=== PATIENT | female | born 1985 | race Caucasian/White ===

== ENCOUNTER 2021-12-01 13:12 | Outpatient (CLI) | payer MEDICAID, SELFPAY ==
--- NOTE | 2021-12-01 13:00 | CRLHL7_ITS ---
For Patients: As a result of the 21st Century Cures Act, medical imaging exams and procedure reports are released immediately into your electronic medical record. You may view this report before your referring provider. If you have questions, please contact your health care provider. BILATERAL BREAST MRI WITHOUT AND WITH GADOLINIUM, 12/01/2021 CLINICAL HISTORY: 36-year-old woman with newly diagnosed LEFT breast cancer. She presented with a palpable mass in the LEFT breast. Ultrasound-guided biopsy showed invasive ductal carcinoma with areas of central necrosis, grade III, with associated DCIS. INDICATION FOR BREAST MRI: Staging of newly diagnosed breast cancer and screening of contralateral breast. Regional lymph nodes will also be assessed. COMPARISON STUDIES: Mammogram 11/11/2021 and ultrasound 11/11/2021. CONTRAST: 15 cc Dotarem. TECHNIQUE: The patient was positioned prone using a breast coil. Multiple imaging sequences were obtained using 1-1.5 mm thick slices with no gap. The image sequences include T2-weighted STIR in the axial plane, T1-weighted nonfat-saturated gradient echo in the axial plane, pre- and post-contrast T1-weighted FLASH 3D with fat suppression in the axial plane, and T1-weighted FLASH high-resolution 3D with fat suppression in the sagittal plane. Image post-processing was performed on a XGraph workstation. Complex 3D rendering including maximum intensity projections (MIPS) and volumetric renderings were obtained to optimize visualization of the extent of pathology and relationship to the nipple, skin, and chest wall. This aids in determining feasibility of breast conservation surgery. Subtraction, multiplanar reconstruction, mean curve determination, and angiogenesis mapping were also performed. The study was technically adequate. FINDINGS: Amount of Fibroglandular Tissue: Heterogeneous fibroglandular tissue. Breast Background Enhancement: Moderate (50-75%). RIGHT Breast: No suspicious enhancement for malignancy. LEFT Breast: Irregular mass enhancement posterolateral LEFT breast approximately 2 o???clock measures 3.6 x 2.4 x 3.1 cm. Biopsy clip within this mass correlating with the biopsy-proven malignancy. No definite abnormal enhancement elsewhere LEFT breast. Lymph Nodes: Two adjacent LEFT axillary lymph nodes with thickened cortices, the largest measuring 1.3 x 1.5 x 1.2 cm. RIGHT axillary lymph nodes have a normal appearance. IMPRESSIONS AND RECOMMENDATIONS: 1. Irregular mass enhancement posterolateral LEFT breast approximately 2 o???clock measuring 3.6 cm in greatest dimension. This corresponds to the biopsy-proven malignancy. 2. No evidence for malignancy RIGHT breast. 3. Indeterminate LEFT axillary lymph nodes. Ultrasound with possible biopsy could be performed as needed for treatment planning. BI-RADS: BI-RADS Category 6: Known Biopsy-Proven Malignancy Emelina Peguero M.D. Body/Breast Radiologist [email or web address] SV/pjt PT/Dictated by: Emelina Peguero MD @ 12/07/2021 8:35:00 AM (Electronically Signed)
== END 2021-12-01 13:13 | disposition home or self-care (01) ==
LOC: MRI 13:14
PROVIDERS: PCP Internal Medicine; Visit Provider Surgery
DX: C50.912 Malignant neoplasm of unspecified site of left female breast (principal); R59.9 Enlarged lymph nodes, unspecified
CPT/HCPCS: 77049; A9575

== ENCOUNTER 2021-12-09 09:02 | Outpatient (CLI) | payer MEDICAID, SELFPAY ==
--- NOTE | 2021-12-09 09:15 | CRLHL7_ITS ---
For Patients: As a result of the Century Cures Act, medical imaging exams and procedure reports are released immediately into your electronic medical record. You may view this report before your referring provider. If you have questions, please contact your health care provider. ULTRASOUND-GUIDED LEFT AXILLARY LYMPH NODE BIOPSY CLINICAL HISTORY: Triple negative left breast cancer with abnormal lymph node on recent MRI. COMPARISON STUDIES: Breast MRI 12/01/2021 TECHNIQUE: Real-time ultrasound with image documentation was used for targeting the left axillary lesion. Core biopsy specimens were obtained using an automated gun with a 18-gauge biopsy needle. CONSENT and TIME OUT: The procedure, risks, and alternatives were explained to the patient and a consent was signed. [place] Protocol was followed including pre-procedure verification that relevant information/documentation was available, reviewed and properly matched to the patient; consent accurate and complete; and equipment and supplies available. Time Out was conducted just prior to starting procedure to verify the four required elements: patient identity, correct side/site marked (if applicable), procedure, relevant images/results properly labeled and displayed (if applicable). PROCEDURE: The patient was positioned supine on the ultrasound table. The breast was prepped with ChloraPrep. 6 cc 1 percent lidocaine used for local anesthesia. Core samples were obtained. A sterile metal biopsy clip was placed percutaneously to lizzy the lesion position within the breast. The specimens were placed in 10% formalin and sent to the pathology department. Pressure was held on the biopsy site until all bleeding subsided. The skin incision was closed with Steri-Strips. An ice pack was positioned over the biopsy site. Post-biopsy instructions were reviewed with the patient, and a written copy was given to her. LATERALITY: Left axilla LESION: Mildly prominent left axillary lymph node measuring 2.1 cm with hypoechoic cortex measuring 2.8 millimeters. SUSPICION FOR MALIGNANCY: High NUMBER OF SAMPLES: 5 BIOPSY CLIP SHAPE: Oval PROXIMITY OF CLIP TO TARGET: Within IMPRESSION: Ultrasound-guided left axillary biopsy. When the pathology report is available, an addendum to this report will be made. ACR not applicable Dictated by Hardy Coyne MD @ 12/09/2021 10:12:17 AM (Electronically Signed)
== END 2021-12-09 09:03 | disposition home or self-care (01) ==
LOC: US 09:04
PROVIDERS: Visit Provider Internal Medicine Medical Oncology
DX: C50.912 Malignant neoplasm of unspecified site of left female breast (principal); R59.9 Enlarged lymph nodes, unspecified
CPT/HCPCS: 38505; 76942; 88305; A4648; A4649

== ENCOUNTER 2021-12-16 10:04 | Outpatient (CLI) | payer MEDICAID, SELFPAY ==
[2021-12-16 18:43] LABS: Free T4 Free Thyroxine* 1.49 ng/dL (0.70-1.85)
[2021-12-18 20:46] LABS: Total T3 215 ng/dL (80-200)
== END 2021-12-16 10:05 | disposition home or self-care (01) ==
LOC: NFLDREF 10:07
PROVIDERS: PCP Family Medicine; Visit Provider Clinical Nurse Specialist
DX: C50.912 Malignant neoplasm of unspecified site of left female breast (principal)
CPT/HCPCS: 84439; 84480; 84481

== ENCOUNTER 2021-12-17 09:09 | Day surgery (SDC) | payer MEDICAID, SELFPAY ==
[2021-12-16] MEDS: CEFAZOLIN 2 GM INJ IVP (11:15)
[2021-12-17 09:23] VITALS: BMI 25.9
[2021-12-17] MEDS: LACTATED RINGERS 1000 ML 1,000 ML 100 ML IV (09:30)
[2021-12-17 09:32] VITALS: BP 101/69; PULSE 74; RESP 16; TEMP 36.4; O2SAT 97
[2021-12-17] MEDS: SODIUM CHLORIDE 0.9 % (FLUSH) 10 ML SYRINGE IVF (09:34)
--- NOTE | 2021-12-17 10:37 | CRLHL7_ITS ---
For Patients: As a result of the Century Cures Act, medical imaging exams and procedure reports are released immediately into your electronic medical record. You may view this report before your referring provider. If you have questions, please contact your health care provider. Indication: PORTACATH PLACEMENT Technique: Fluoroscopic image right chest. Fluoroscopic time 51.3 seconds. IMPRESSION: Fluoroscopic guidance for Port-A-Cath placement. Dictated by Hardy Coyne MD @ 12/17/2021 12:31:14 PM (Electronically Signed)
[2021-12-17] MEDS: LIDOCAINE 1% 20 ML VIAL INJECTION (11:25)
[2021-12-17] MEDS: BUPIVACAINE 0.5% 30 ML INJECTION (11:25)
[2021-12-17] MEDS: HEPARIN 500 UNIT/5 ML SYRINGE IVF (11:43)
[2021-12-17 12:06] VITALS: BP 111/72; PULSE 70; RESP 16; TEMP 36; O2SAT 93
--- NOTE | 2021-12-17 12:08 | W.ANESCHARGE ---
Anesthesia Charges Start Date/Time Anesthesia Start Date: 12/17/21 Anesthesia Start Time: 11:07 Stop Date/Time Anesthesia Stop Date: 12/17/21 Anesthesia Stop Time: 12:10
[2021-12-17 12:15] VITALS: BP 112/100; PULSE 74; RESP 16; O2SAT 100
[2021-12-17 12:30] VITALS: BP 112/84; PULSE 63; RESP 16; O2SAT 99
--- NOTE | 2021-12-17 12:35 | W.ANESCHARGE ---
Anesthesia Charges Start Date/Time Anesthesia Start Date: 12/17/21 Anesthesia Start Time: 11:07 Stop Date/Time Anesthesia Stop Date: 12/17/21 Anesthesia Stop Time: 12:10
--- NOTE | 2021-12-17 16:03 | PM.GSPRC ---
Operative Note Date of procedure: 12/17/21 Type of Procedure: Right internal jugular port a catheter Procedure Description: After discussing the risks and benefits of the procedure, the patient signed informed consent.? The operative site was marked and the patient was brought to the operating room and placed on the operating table in supine position.? Care was taken to pad the patient's pressure points.?? The patient was then sedated by anesthesia.?? The operative site was then prepped and draped in the usual sterile fashion.? A time-out was then performed. The patient's right internal jugular vein was visualized using ultrasound. Local anesthetic was injected into the neck skin above the vein. A skin timoteo was made with an 11 blade. The vein was accessed percutaneously via Seldinger technique using ultrasound guidance. Next local anesthetic was injected into the skin below the clavicle and along the proposed tract to the neck incision. A skin incision was then made with a 15 blade and a pocket created in the chest wall with cautery. A tunneler was then used to thread the catheter from the chest wall pocket to the neck incision. Once this was done fluoroscopy was brought into the field. Over the wire the tract was dilated using fluoroscopy. The wire and the dilator were then removed leaving the sheath intact in the vein. Through this the catheter was threaded. Using fluoroscopy the catheter was positioned into the distal SVC. The catheter was noted to flush and aspirate easily. The catheter was then connected to the port. The port was placed in the pocket and secured in place with two 2 0 Prolene stay sutures. It was noted to flush and aspirate easily. This was then locked with heparinized saline and left accessed. The skin was closed with absorbable suture. Sterile dressings were applied. Instrument sponge and needle counts were correct at the end of the case. The patient was woken and taken to the PACU in stable condition. ? Sterile dressings were then applied. ? The patient was then woken and transported to the recovery area in stable condition. ? The patient tolerated the procedure well. Findings: Compressible right internal jugular vein with placement of port a catheter. Anesthesia: MAC Surgeon: Indira Doherty MD Estimated blood loss (mL): 5 Condition: stable Disposition: same day
== END 2021-12-17 12:55 | disposition home or self-care (01) ==
PROVIDERS: Surgery; PCP Family Medicine; Visit Provider Surgery
DX: Z45.2 Encounter for adjustment and management of vascular access device (principal); C50.912 Malignant neoplasm of unspecified site of left female breast
CPT/HCPCS: 36561; 00532; 71045; 76000; C1788; J0690; J1642; J2250; J2405; J2704; J3010; J3490; J7120

== ENCOUNTER 2021-12-25 09:00 | Outpatient (RCR) | payer MEDICAID, SELFPAY ==
--- NOTE | 2021-12-08 13:11 | URNOTE ---
Received request for prior auth for Carboplatin(J9045), Paclitaxel (J9267), Pembrolizumab (J9271) and Aloxi (J2469). Per [facility] fee schedule, prior auth is not required for Carboplatin, Paclitaxel and Aloxi. Prior auth is required for Pembrolizumab. This has been submitted and is pending.
--- NOTE | 2021-12-09 13:26 | URNOTE ---
Request for Pembrolizumab 200 units every 3 weeks has been approved for total 800 units for 4 cycles from 12/17/2021 through 05/29/2022. Authorization #[id number]
[2021-12-15 10:58] LABS: Basophils Percent Auto 0.1 % (0.0-3.0); Eosinophils Percent Auto 1.6 % (0.0-7.0); Hematocrit 46.2 % (33.0-51.0); Hemoglobin* 15.2 gm/dL (12.0-16.0); Immature Granulocytes Abs Auto 0.01 K/uL (0.00-0.30); Lymphocytes Percent Auto 23.9 % (20-44); Mean Corpuscular HGB Conc 33 gm/dL (32-36); Mean Corpuscular Hemoglobin 29 pg (26-34); Mean Corpuscular Volume 88 fL (80-100); Monocytes Percent Auto 6.5 % (0.0-11.0); Neutrophils Percent Auto 67.8 % (42.0-72.0); Platelet Count* 310 K/uL (140-440); RDW Coefficient of Variation % 13.7 % (11.5-15.5); Red Blood Count 5.24 m/uL (4.00-5.20); White Blood Count* 11.18 K/uL (4.50-11.00)
[2021-12-15 11:06] LABS: Slide Review Reflex No
[2021-12-15 11:07] LABS: Neutrophils Absolute Auto 7.58 K/uL (1.7-7.0)
[2021-12-15 11:13] LABS: Albumin* 4.8 g/dL (3.3-5.0); Chloride* 104 mmol/L (96-114); Sodium* 139 mmol/L (135-149)
[2021-12-15 11:14] LABS: Potassium* 3.5 mmol/L (3.6-5.1)
[2021-12-15 11:16] LABS: Alanine Aminotransferase* 21 U/L (4-35); Alkaline Phosphatase* 63 U/L (40-150); Aspartate Amino Transferase* 27 U/L (12-35); Bilirubin Total* 0.9 mg/dL (0.1-1.5); Blood Urea Nitrogen* 9 mg/dL (5-24); Carbon Dioxide* 24 mmol/L (20-32); Creatinine* 0.7 mg/dL (0.5-1.5); Estimated Glomerular Filt Rate 113 ml/min; Glucose* 109 mg/dL (60-115); Total Protein* 7.7 g/dL (6.0-8.3)
[2021-12-15 11:17] LABS: Calcium* 9.2 mg/dL (8.4-10.6)
--- NOTE | 2021-12-15 14:58 | PC.NURSE ---
Met with patient for chemotherapy teaching. Contents of the chemotherapy binder reviewed. Side effects of Paclitaxel, Carboplatin and Pembrolizumab reviewed. Patient instructed on what to report to provider and how to contact the provider. Patient has already obtained the supplies needed for cryotherapy to hands and feet. Patient verbalizes understanding of treatment plan.
[2021-12-18 09:05] VITALS: BP 103/68; PULSE 65; RESP 16; TEMP 36.4; O2SAT 98
[2021-12-18] MEDS: PEMBROLIZUMAB 200 MG, TUBING PRIMARY 1 EACH, In-line 0.2 micron filter set 1 EACH in 0.... 216 MG IVPB (09:52)
[2021-12-18] MEDS: PALONOSETRON 0.25 MG/5 ML inj IV (10:29)
[2021-12-18] MEDS: dexAMETHasone 20 MG in 0.9 % SODIUM CHLORIDE 100 ml 100 ML 408 MG IVPB (10:47)
[2021-12-18] MEDS: FAMOTIDINE 20 MG, diphenhydrAMINE 50 MG in 0.9 % SODIUM CHLORIDE 100 ml 100 ML 309 MG IVPB (11:03)
[2021-12-18] MEDS: SODIUM CHLORIDE 0.9 % (FLUSH) 10 ML SYRINGE IVF (11:34)
[2021-12-18] MEDS: 0.9 % SODIUM CHLORIDE 250 ml IV (11:34)
--- NOTE | 2021-12-18 15:42 | ONC.NURNOTE ---
First Chemo Patient here today for first Keytruda/Taxol/Carbo; tolerated well. Pt's legs were very jumpy after IV Benadryl premed; she has a hx of restless leg syndrome. Massage, positioning with pillow and movement improved restlessness. Pt reports poor circulation in her feet, noting they are always cold. Tolerated cryotherapy before/during/after Taxol with cold packs on bottoms of feet and leaving top cold packs out; pt tolerated cold pack mitts. Pt feels cold easily; used chair heater and 2 warm blankets to keep her comfortable during cryotherapy; was effective. Questions answered, Lorazepam refilled.
[2021-12-25 09:10] VITALS: BP 108/76; PULSE 91; RESP 16; TEMP 36.1; O2SAT 96
[2021-12-25 09:25] LABS: Basophils Absolute Auto 0.02 K/uL (0.00-0.30); Basophils Percent Auto 0.3 % (0.0-3.0); Eosinophils Absolute Auto 0.17 K/uL (0.00-0.50); Eosinophils Percent Auto 2.8 % (0.0-7.0); Hematocrit 39.5 % (33.0-51.0); Hemoglobin* 13.2 gm/dL (12.0-16.0); Immature Granulocytes Abs Auto 0.01 K/uL (0.00-0.30); Lymphocytes Absolute Auto 1.81 K/uL (0.90-2.90); Lymphocytes Percent Auto 29.6 % (20-44); Mean Corpuscular HGB Conc 33 gm/dL (32-36); Mean Corpuscular Hemoglobin 29 pg (26-34); Mean Corpuscular Volume 88 fL (80-100); Monocytes Percent Auto 5.9 % (0.0-11.0); Neutrophils Absolute Auto 3.75 K/uL (1.7-7.0); Neutrophils Percent Auto 61.2 % (42.0-72.0); Platelet Count* 254 K/uL (140-440); RDW Coefficient of Variation % 12.9 % (11.5-15.5); Red Blood Count 4.49 m/uL (4.00-5.20); White Blood Count* 6.12 K/uL (4.50-11.00)
[2021-12-25 09:31] LABS: Slide Review Reflex No
[2021-12-25 09:49] LABS: Albumin* 4.3 g/dL (3.3-5.0); Chloride* 102 mmol/L (96-114)
[2021-12-25 09:50] LABS: Potassium* 3.9 mmol/L (3.6-5.1); Sodium* 135 mmol/L (135-149)
[2021-12-25 09:52] LABS: Aspartate Amino Transferase* 62 U/L (12-35); Bilirubin Total* 1.3 mg/dL (0.1-1.5); Carbon Dioxide* 25 mmol/L (20-32); Creatinine* 0.7 mg/dL (0.5-1.5); Estimated Glomerular Filt Rate 113 ml/min; Total Protein* 7.5 g/dL (6.0-8.3)
[2021-12-25 09:53] LABS: Alanine Aminotransferase* 66 U/L (4-35); Alkaline Phosphatase* 69 U/L (40-150); Blood Urea Nitrogen* 16 mg/dL (5-24); Calcium* 9.3 mg/dL (8.4-10.6); Glucose* 102 mg/dL (60-115)
[2021-12-25] MEDS: dexAMETHasone 20 MG in 0.9 % SODIUM CHLORIDE 100 ml 100 ML 408 MG IVPB (10:43)
[2021-12-25] MEDS: PALONOSETRON 0.25 MG/5 ML inj IV (11:17)
[2021-12-25] MEDS: FAMOTIDINE 20 MG, diphenhydrAMINE 50 MG in 0.9 % SODIUM CHLORIDE 100 ml 100 ML 309 MG IVPB (11:18)
[2021-12-25] MEDS: HEPARIN 500 UNIT/5 ML SYRINGE IVF (14:14)
[2021-12-25] MEDS: SODIUM CHLORIDE 0.9 % (FLUSH) 10 ML SYRINGE IVF (14:14)
== END 2021-12-27 23:59 | disposition home or self-care (01) ==
LOC: CCIC 09:00
PROVIDERS: Clinical Nurse Specialist; PCP Internal Medicine; Visit Provider Internal Medicine Medical Oncology
DX: Z51.11 Encounter for antineoplastic chemotherapy (principal); C50.912 Malignant neoplasm of unspecified site of left female breast
CPT/HCPCS: 36415; 36591; 80053; 84443; 84480; 85025; 96376; 96413; 96415; 96417; 99202; 99205; 99211; J1100; J1200; J1642; J2469; J7050; J9045; J9267; J9271; S0028

== ENCOUNTER 2022-03-01 15:02 | Outpatient (CLI) | payer MEDICAID, SELFPAY ==
--- OUTSIDE RECORDS SUMMARY | 2022-03-01 15:04 | XMS_ITS | Clinical Summary ---
:1985 Author Organization [facility] [place] [address] Care Team Providers Name Role Phone Hardy Vital MD Primary Care Provider [phone] Allergies No known active allergies Medications Medication Sig Dispensed Refills Start Date End Date Status PARoxetine (PAXIL) 20 mg 30 mg. 3 09/09/2017 Active tablet cetirizine (ZYRTEC) 10 mg Take 1 tablet 0 11/03/2017 Active tablet by mouth once daily. ondansetron (ZOFRAN) 4 mg Take 1 tablet 12 tablet 0 11/03/2017 Active tabletIndications: Viral by mouth every gastroenteritis 8 hours if needed for Nausea/Vomiting . Active Problems Not on file Encounters Date Type Specialty Care Team Description 01/26/2022 Telephone Arcelia Barajas MS, Results (Negative 36 gene [facility]GC panel) 01/15/2022 Orders Only Lab, [facility] 01/15/2022 Travel 01/11/2022 Telemedicine Arcelia Barajas MS, Teleheal (Virtual visit CGC /); Counseling (Cancer genetic intake counselor ing /) 01/05/2022 Telephone Betty Barba Cancer Geneti cs 12/09/2021 Lab Requisition Unknown, Doctor 12/07/2021 Transcribe Orders Karo Benson MD from Last 3 Months Immunizations Name Administration Dates Next Due Hepatitis B (Peds) 09/13/2001, 04/19/2001, 03/15/2001 Td (Age >=7 Years) 05/29/1996 Social History Tobacco Use Types Packs/Day Years Used Date Former Smoker Smokeless Tobacco: Never Used Alcohol Use Standard Drinks/Week Comments No 0 (1 standard drink = 0.6 oz pure alcoho l) Alcoholic Drinks/day: 0 Sex Assigned at Date Recorded Not on file Obstetrics History Last Filed Vital Signs Vital Sign Reading Time Taken Comments Blood Pressure 133/83 11/03/2017 3:06 PM CDT Pulse 77 11/03/2017 3:06 PM CDT Temperature 36.8 ??C (98.2 ??F) 11/03/2017 3:06 PM CDT Respiratory Rate - - Oxygen Saturation 97% 11/03/2017 3:06 PM CDT Inhaled Oxygen Concentration - - Weight 75.9 kg (167 lb 6.4 oz) 11/03/2017 3:06 PM CDT Height 160.8 cm (5' 3.31) 11/03/2017 3:06 PM CDT Body Mass Index 29.37 11/03/2017 3:06 PM CDT Plan of Treatment Upcoming Encounters Date Type Specialty Care Team Description 06/14/2022 Orders Only Tori [facility] Health Maintenance Due Date Last Done Comments COVID-19 vaccine series (#1) 02/22/1984 Tdap 08/21/1994 Hepatitis C screening for age 18-79 08/21/2001 Tetanus booster 05/29/2006 05/29/1996 BMI (ht and wt on same day) for age 18+ 11/03/2018 11/04/19 18 Depression screening for age 12+ 11/03/2018 11/03/2017 Pap test for age 21-65 02/10/2020 02/09/2017, 02/09/2017 Influenza for age 9-49 01/28/2022 Procedures Procedure Name Priority Date/Time Associated Diagnosis Comme nts CANCER GENETIC SEND STAT 01/15/2022 Family history of Res ults for this OUT breast cancer procedure are in Triple negative the results malignant neoplasm section. of breast (HC) LAB TRACKING EVENT Routine 12/09/2021 9:30 AM CDT PATH BREAST CORE Routine 12/09/2021 9:30 AM Resul ts for this BIOPSY CDT procedure are i n the results section. from Last 3 Months Results CANCER GENETIC SEND OUT (01/15/2022) Specimen (Source) Anatomical Location Collection Method / Collectio n Time Received Time / Laterality Volume Blood BLOOD SPECIMEN / 01/15/2022 Unknown Narrative This result has an attachment that is no t available. aKro Benson MD SEND OUTS LAB TRACKING EVENT (12/09/2021 9:30 AM CDT) Specimen Anatomical Collection Method Collection Time Receive d Time (Source) Location / / Volume Laterality Other (Other) Client Collect / 12/09/2021 9:30 AM 11/27 4:16 Unknown CDT PM CDT Doctor Unknown LAB BILL ONLY Performing Organization Address City/State/ZIP Code Phon e Number [facility] [address] [place] [address] LABORATORY-CENTRAL 2000 LABORATORY PATH BREAST CORE BIOPSY (12/09/2021 9:30 AM CDT) Component Value Ref Test Analysis Performed At [facility] gist Range Method Time Signature Case Report Pathology Report ?Case: [id number] ? 12/10/2021 [facility] Authorizing Provider: ??Unkn own, Doctor ?Collected: ? 12/09/2021 0930 ? 2:55 PM HEAL TH Ordering Location: ? [facility] ?Received: ?12/09/2021 1741 ? CDT AIDAN DAVIS Pathologist: ? Kassidy Victor MD ? ENTRAL Specimen: ?Left Breast C ore Ultrasound Biopsy ? LABORATORY Final A) LEFT AXILLA, LYMPH NODE, ULTRASOUND-GUIDED CORE BIOPSY: 12/10/2021 [facility] Electronically Diagnosis 1. Fragments of benign lymph node 2:55 [facility] signed by 2. Negative for metastatic carcinoma in this sampling CDT LABORATORY-C ONEYDA Andrews MD for LABORATORY Kassidy Victor MD on 12/10/2021 at 2:55 PM Comment A) This is an image-guided b reast biopsy. The pathologic findings should be correlated with radiologic and clinical findings prior to treatment decisions. 12/10/2021 [facility] 2:55 PM HEALTH Case seen in consultation with Dr. Andrews. CDT LABORATORY-C ENTRAL LABORATORY Clinical 1.5 cm oval 12/10/2021 [facility] Information circumscribed 2:55 PM HEALTH solid hypoechoic CDT LABORATORY-C mass of the left ENTRAL axilla lymph LABORATORY node. Recent diagnosis of left breast IDC gr III, ER/NM/Her2 negative ([id number]) Gross A) Label: ??Patient's name and left axilla lymph node 12/10/2021 [facility] Description Description: 7 Fibrofatty core biopsies 2:55 PM HEALTH Size: 0.2-0.9 cm in length by 0.1 cm in diameter CDT LABORATORY-C Ink color: Black ENTRAL The specimen is submitted in toto in one cassette. LABORATORY Cold ischemic time: Less miki n 60 minutes, meets current ASCO/CAP guidelines. The specimen was fixed in formalin for a minimum of 6 hours and not longer than 72 hours. 12/09/2021 Microscopic The final diagnosis is based on microscopic examination of appropriate sections of all specimens. 12/10/2021 [facility] Description 2:55 PM HEALTH CDT LABORATORY-C A) The presence of black ink is confirmed on tissue sections. Additional deeper level sections are examined. ENTRAL LABORATORY Additional 12/10/2021 [facility] Information Interpreted at [facility], Central Laboratory - [address], [place] [address] 2:55 PM HEALTH CDT LABORATORY-C ENTRAL LABORATORY Specimen (Source) Anatomical Collection Method Collection Time Re ceived Time Location / / Volume Laterality Other (Left Breast 12/09/2021 9:30 2021 5:41 Core Ultrasound AM CDT PM CDT Biopsy) Doctor Unknown PATHOLOGY/CYTOLOGY Performing Organization Address City/State/ZIP Code Phon e Number [facility] [address] 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
== END 2022-03-01 15:03 | disposition home or self-care (01) ==
PROVIDERS: PCP Family Medicine; Visit Provider Internal Medicine Medical Oncology
DX: C50.912 Malignant neoplasm of unspecified site of left female breast (principal); Z51.81 Encounter for therapeutic drug level monitoring; Z79.899 Other long term (current) drug therapy
CPT/HCPCS: 93306

== ENCOUNTER 2022-05-11 13:17 | Emergency (ER) | payer MEDICAID, SELFPAY ==
[2022-05-11 14:01] VITALS: BP 109/75; PULSE 115; TEMP 36; O2SAT 100; BMI 22.3
--- NOTE | 2022-05-11 14:17 | CRLHL7_ITS ---
For Patients: As a result of the Century Cures Act, medical imaging exams and procedure reports are released immediately into your electronic medical record. You may view this report before your referring provider. If you have questions, please contact your health care provider. INDICATION: Cough. TECHNIQUE: Chest 2 views. COMPARISON: Fluoroscopic chest radiograph 12/17/2021. FINDINGS: Right IJ Port-A-Cath with tip in the mid SVC. No focal consolidation, pleural effusion, or pneumothorax. Normal heart size and pulmonary vascularity. Small metallic markers in the left chest wall. The bones are unremarkable. IMPRESSION: No acute cardiopulmonary findings. Dictated by Micaela Arredondo MD @ 05/11/2022 3:45:16 PM (Electronically Signed)
[2022-05-11] MEDS: IPRAT-ALBUT 0.5-2.5 MG/3 ML NEB 1 NEB IH (14:43)
--- OUTSIDE RECORDS SUMMARY | 2022-05-11 14:51 | XMS_ITS | Clinical Summary ---
:1985 Author Organization [email or web address] [place] [address] Care Team Providers Name Role Phone Hardy Vital MD Primary Care Provider [phone] Allergies No known active allergies Medications [...] Encounters Date Type Specialty Care Team Description 03/01/2022 Orders Only 2 scans: (2-Ord ) ECHO COMPLETE WO CONTRAST ([id number]) from Last 3 Months Immunizations Name Administration Dates Next Due Hepatitis B (Peds) 09/13/2001, 04/19/2001, 03/15/2001 Td (Age >=7 Years) 05/29/1996 Social History Tobacco Use Types Packs/Day Years Used Date Smoking Tobacco: Former Smokeless Tobacco: Never Alcohol Use Standard Drinks/Week Comments No 0 [...] COVID-19 vaccine series (#1) 02/22/1984 Tdap 08/21/1994 HIV for age 15-65 08/21/1998 Hepatitis C screening for age 18-79 08/21/2001 Tetanus booster 05/29/2006 05/29/1996 BMI (ht and wt on same day) for age 18+ 11/03/2018 11/04/19 18 Depression screening for age 12+ 11/03/2018 11/03/2017 Pap test for age 21-65 02/10/2020 02/09/2017, 02/09/2017 Influenza for age 9-49 01/28/2022 Procedures Procedure Name Priority Date/Time Associated Diagnosis Comme nts ECHO COMPLETE WO Routine 03/01/2022 3:32 PM Malignant neoplasm Results for this CONTRAST CDT of left breast (HC) procedur e are in the results section. from Last 3 Months Results ECHO COMPLETE WO CONTRAST (03/01/2022 3:32 PM CDT) P athologist Signature AORTIC VALVE 4 mmHg MEAN PG EJECTION 60 % FRACTION LVEDD 3.3 cm EJECTION 55 - 60% FRACTION Anatomical Region Laterality Modality HEART Ultrasound Specimen (Source) Anatomical Collection Method Collection Time Re ceived Time Location / / Volume Laterality 03/01/2022 3:05 PM CDT Narrative 03/01/2022 3:42 PM CDT ECHOCARDIOGRAM VALENTINA MIR ? Accessi on#: ?? [id number] : ?1985 36 years Study Date: ?? 03/01/2022 3:05:50 PM Gender: F ?BP: ? 119/78 mmHg Height: 163.00 cm ?BSA: ?1.68 m? ?? Weight: 63.00 kg ? Tech: ? MJW ? Referring MD: KARL LE Site: ? [facility] Reading Location: Mobile[facility] Procedure: 2D, Color Doppler and Spectra l Doppler. Indication for study: Cardiotoxic Chemot herapy Cardiac Rhythm: Regular.Study quality: G ood. Final Impressions: 1. Normal left ventricular size, normal wall thickness, normal function, calculated EF of 60 %. 2. Right ventricular cavity size is nor mal, global systolic RV function is normal. 3. No significant valve disease detecte d. 4. Current global longitudinal strain i s normal at -17 %. Comparison There are no prior studies on this patie nt for comparison purposes. Chamber Sizes and Function Normal left ventricular size, normal wal l thickness, normal global systolic function, calculated EF of 60 %. Left atrial size is normal. Left atrial pressure is normal. Right ventricular cavity size is normal, global systolic RV function is n ormal. RV wall thickness is normal. The right atrium is normal. Right atrial volume index is 12 ml/m? ??. Right atrial area is 10 cm? ??. The pulmonary artery is of normal size and origin. The sinus of Valsalva is normal sized. The ascending aorta is normal sized. Global longitudinal strain analysis was performed using [employer] software. Current global longitudinal strain is normal at -17 %. Valves, RV Pressures and Diastolic Funct ion The aortic valve is normal in structure and trileaflet, no stenosis and no regurgitation. The mitral valve is normal in structure, no mitral regurgitation. Normal diastolic function. The tricuspid valve is normal in structure. Tricuspid regur gitation is regurgitation is not evident. The pulmonic valve is normal. No pulmonary regurgitation. Pulmonary veins show a normal flow pattern. Masses, Effusion, Shunts There is no pericardial effusion. The in ferior vena cava is normal sized, respiratory size variation greater than 50%. No left to right shunting was detected by limited color flow Doppler interrogation of the interatrial septum. No masses or clots seen. MEASUREMENTS AND CALCULATIONS 2-D Measurements and LV Function: LVID (d) 3.3 cm Planimetered EF 60 % LVID (s) 2.0 cm LV FS% (2D) ? 39 % IVS (d) ??0.8 cm LVOT diameter ?? 2.0 cm LVPW (d) 0.8 cm HR ?9 7 bpm Ao Sinus 2.8 cm LA Vol index ?13 ml/ m2 Asc Ao ?? 2.7 cm RA Vol index ?12 ml /m2 LA ? 2.8 cm RA area ? 1 0 cm?RV Max 4C (d) ?? 2.7 cm ?GLS current ? -17% ?GLS System ?QLab. Diastology: Mitral ?Tissue Doppler ?Pulmonary veins E Peak 0.7 m/s ??e', Septum ? 0.09 m /s Pulm s ?78.3 cm/s A Peak 0.7 m/s ??e', Lateral ?0.13 m /s Pulm d ?61.7 cm/s E/A ?1.0 ?E/e' Average ?? 6.2 8 ? Pulm s/d ratio ??1.27 DT ? 206 msec IVRT ?? 78 msec Aortic Valve: Vmax ? 1.2 m/s ??ALISSA (V) ?? 2.12 cm? ?? VTI ?0.19 m ?? ALISSA (I ) ?? 2.48 cm? ?? LVOT V max ? 0.8 m/s ??Max PG ?6 mmHg LVOT VTI ? 0.15 m ?? Mean PG ? ? 4 mmHg SV ? 47 ml ?Dim I ndex 0.78 SV index ? 28 ml/m? ?? CO ?4.6 l/min AV Ejection Time 0.23 sec CI ? 2.7 l/min/m? ?? AV Flow Rate ? 204 ml/s Mitral Valve: MVA ?3.7 cm? ?? MV P 1/2 60 msec Tricuspid Valve and estimated PA pressur es: TAPSE 1.8 cm . This study was interpreted by an [facility]. CC: [facility]. ??Final ?? Procedure Note Darrian Carrillo MD - 03/01/2022Fo rmatting of this note might be different from the original. ECHOCARDIOGRAM VALENTINA MIR : 1985 36 years Study Date: 03/01 3:05:50 PM Gender: F BP: 119/78 mmHg Height: 163.00 cm BSA: 1.68 m? ?? Weight: 63.00 kg Tech: MALGORZATA Referring MD: KARL LE Site: [facility] Reading Location: Mobile[facility] Procedure: 2D, Color Doppler and Spectra l Doppler. Indication for study: Cardiotoxic Chemot herapy Cardiac Rhythm: Regular.Study quality: G ood. Final Impressions: 1. Normal left ventricular size, normal wall thickness, normal function, calculated EF of 60 %. 2. Right ventricular cavity size is nor mal, global systolic RV function is normal. 3. No significant valve disease detecte d. 4. Current global longitudinal strain i s normal at -17 %. Comparison There are no prior studies on this patie nt for comparison purposes. Chamber Sizes and Function Normal left ventricular size, normal wal l thickness, normal global systolic function, calculated EF of 60 %. Left atrial size is normal. Left atrial pressure is normal. Right ventricular cavity size is normal, global systolic RV function is normal. RV wall thickness is normal. The right atrium is normal. Right atrial volume index is 12 ml/m? ??. Right atrial area is 10 cm? ??. The pulmonary artery is of normal size and origin. The sinus of Valsalva is normal sized. The a scending aorta is normal sized. Global longitudinal strain analysis was performed using QLab software. Current global longitudinal strain is normal at -17 %. Valves, RV Pressures and Diastolic Funct ion The aortic valve is normal in structure and trileaflet, no stenosis and no regurgitation. The mitral valve is normal in structure, no mitral regurgitation. Normal diastolic function. The tricuspid valve is normal in structure. Tricuspid regurgitation is re gurgitation is not evident. The pulmonic valve is normal. No pulmonary regurgitation. Pulmonary veins show a normal flow pattern. Masses, Effusion, Shunts There is no pericardial effusion. The in ferior vena cava is normal sized, respiratory size variation greater than 50%. No left to right shunting was detected by limited color flow Doppler interrogation of the interatrial septum. No masses or clots seen. MEASUREMENTS AND CALCULATIONS 2-D Measurements and LV Function: LVID (d) 3.3 cm Planimetered EF 60 % LVID (s) 2.0 cm LV FS% (2D) 39 % IVS (d) 0.8 cm LVOT diameter 2.0 cm LVPW (d) 0.8 cm HR 97 bpm Ao Sinus 2.8 cm LA Vol index 13 ml/m2 Asc Ao 2.7 cm RA Vol index 12 ml/m2 LA 2.8 cm RA area 10 cm? ?? RV Max 4C (d) 2.7 cm GLS current -17% GLS System QLab. Diastology: Mitral Tissue Doppler Pulmonary veins E Peak 0.7 m/s e', Septum 0.09 m/s Pulm s 78.3 cm/s A Peak 0.7 m/s e', Lateral 0.13 m/s Pulm d 61.7 cm/s E/A 1.0 E/e' Average 6.28 Pulm s/d ratio 1.27 DT 206 msec IVRT 78 msec Aortic Valve: Vmax 1.2 m/s ALISSA (V) 2.12 cm? ?? VTI 0.19 m ALISSA (I) 2.48 cm? ?? LVOT V max 0.8 m/s Max PG 6 mmHg LVOT VTI 0.15 m Mean PG 4 mmHg SV 47 ml Dim Index 0.78 SV index 28 ml/m? ?? CO 4.6 l/min AV Ejection Time 0.23 sec CI 2.7 l/min/m ? ?? AV Flow Rate 204 ml/s Mitral Valve: MVA 3.7 cm? ?? MV P 1/2 60 msec Tricuspid Valve and estimated PA pressur es: TAPSE 1.8 cm . This study was interpreted by an [facility] facility. CC: [facility]. Final Karl Le MD ECHO ORD from Last 3 Months Insurance Payer Benefit Plan / Subscriber ID Effective Dates Phone Addre ss Type Group [place] [id number] 2021-Present [address] [address] [place] [address] Care Teams Fuse Assembler Relationship Specialty Start Date End Date Hardy Vital MD PCP - General Family Practice 01/06/221999 [place] [address] "
[2022-05-11 14:57] LABS: Basophils Percent Auto 0.3 % (0.0-3.0); Eosinophils Percent Auto 1.5 % (0.0-7.0); Hematocrit 30.3 % (33.0-51.0); Immature Granulocytes Pct Auto 1.5 %; Lymphocytes Percent Auto 20.2 % (20-44); Mean Corpuscular HGB Conc 33 gm/dL (32-36); Mean Corpuscular Hemoglobin 33 pg (26-34); Mean Corpuscular Volume 99 fL (80-100); Monocytes Percent Auto 13.9 % (0.0-11.0); Neutrophils Percent Auto 62.6 % (42.0-72.0); Platelet Count* 76 K/uL (140-440); RDW Coefficient of Variation % 11.8 % (11.5-15.5); Red Blood Count 3.06 m/uL (4.00-5.20); White Blood Count* 3.37 K/uL (4.50-11.00)
[2022-05-11 15:06] VITALS: PULSE 96; O2SAT 100
--- NOTE | 2022-05-11 15:11 | ED.SOB ---
HPI - SOB/Dyspnea General Date Seen: 05/11/22 Chief Complaint: Cough Stated Complaint: Lingering cough, on chemo Time Seen by Provider: 05/11/22 13:44 Source: patient Mode of arrival: ambulatory Limitations: no limitations History of Present Illness HPI Narrative: Patient is a 36-year-old female presents here with a cough she has had now for 3-4 weeks. She has a history of being treated for breast cancer, undergoing chemo, is going to undergo surgery here in the near future on her breast. She denies any fevers chills or sweats associated with this, her immunizations are up-to-date, she denies any hemoptysis any loss of consciousness, chest pain shortness of breath, or recent travel. Actually talks about times when she has absolutely no coughing, then the coughing will start usually when she changes rooms or changes venues with temperature change. 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 MD elicited complaint: cough Onset (ago): week(s) Timing: intermittent Severity: moderate Exacerbating factors: nothing Relieving factors: nothing Associated symptoms: denies other symptoms Treatment prior to arrival: none Related Data Home oxygen amount: none Home Medications Medication Instructions Recorded Confirmed acetaminophen 325 mg capsule 325 mg PO Q6H PRN 11/26/21 04/29/22 cetirizine 10 mg tablet 10 mg PO DAILY 11/26/21 04/29/22 ibuprofen 200 mg tablet 200 mg PO .Q6h Prn 11/26/21 04/29/22 calcium carbonate 500 mg calcium 500 mg PO Q4-6H PRN 12/18/21 04/29/22 (1,250 mg) chewable tablet lidocaine-prilocaine 2.5 %-2.5 % topical PRN port access 01/22/22 04/29/22 topical cream sennosides 8.6 mg capsule (senna) 8.6 mg PO DAILY 03/12/22 04/29/22 Previous Rx's Medication Instructions Recorded olanzapine 5 mg tablet 5 mg PO .qhs nausea #30 tabs 01/22/22 dexamethasone 4 mg tablet 4 mg PO BID #24 tabs 03/04/22 lorazepam 0.5 mg tablet 0.5 mg PO Q4H PRN nausea #25 tabs 03/05/22 prochlorperazine maleate 10 mg 10 mg PO QID PRN nausea #30 tabs 03/05/22 tablet clindamycin phosphate 1 % topical 1 applic topical BID #30 grams 03/22/22 gel ondansetron 8 mg disintegrating 8 mg PO Q8H PRN nausea #30 tabs 03/26/22 tablet albuterol sulfate 90 mcg/actuation 2 puff inhalation Q6H PRN 05/11/22 aerosol inhaler shortness of breath or wheezing #6.7 grams prednisone 50 mg tablet 50 mg PO DAILY #5 tabs 05/11/22 Allergies Allergy/AdvReac Type Severity Reaction Status Date / Time adhesive Allergy Verified 05/03/22 09:19 Review of Systems Status of ROS: Reports: 10 or more systems reviewed and unremarkable except as noted in History and below [facility] Medical History Breast cancer, left Dysmenorrhea Generalized anxiety disorder History of abnormal cervical Papanicolaou smear History of self mutilation History of spontaneous History of vaginal delivery (2012) Irregular menstrual cycle LFT elevation Major depressive disorder Migraine with aura Nicotine dependence Stress incontinence of urine Weight loss, abnormal Surgical History History of dilation and curettage History of elective History of tubal ligation (2012) Family History Maternal Grandmother Breast cancer Substance abuse Paternal Grandfather Lung cancer Substance abuse Father Mental disorder Mother Mental disorder Family/Other Mental disorder Social History Narrative: tobacco use 2-4 cig/day. Occasional alcohol use. 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 She has 2 children ages 8 and 15. Smoking Status: Former smoker How often do you have a drink containing alcohol: monthly or less AUDIT-C Alcohol total score: 1 Non-prescribed substance use: denies use Caffeine: Yes Little interest or pleasure in doing things: several days Feeling down, depressed, or hopeless: not at all Exam Narrative: Exam Narrative: I find a very nice lady in room 4 no apparent distress speaking to me in full sentences, Patient is peaking normally, problem with slurring words, oriented x3. Head eyes ears nose and throat exam show equal pupils, no scleral icterus, extraocular muscles are normal, no facial droop, speech is normal, trachea normal and midline. Thyroid normal midline palpable not enlarged. Chest shows symmetrical rise bilaterally, abnormal auscultation with occasional wheezes in all lung gar, no increased work of breathing, no overt bruising or lesions seen, no tenderness is noted on auscultation. Heart sounds normal with no S3-S4 no murmurs clicks or gallops. Abdomen shows no obvious masses or hepatosplenomegaly, no organomegaly, bowel sounds are normal in all quadrants. No tenderness is noted also in all quadrants. Upper and lower extremities show normal power, normal range of motion, pulses are normal, sensations normal, fine motor movements are normal, pelvis is stable to rocking. Cervical spine shows normal range of motion, and palpably not tender. Thoracic spine shows normal range of motion, and palpably not tender, lumbar spine shows no tenderness to palpation percussion and is otherwise normal range of motion. Skin shows no rashes, petechiae or eccymosis. Negative Homans sign Const: Vital Signs, click to edit/add: Vital Signs - 24 hr 05/11/22 14:01 05/11/22 15:06 05/11/22 15:37 Temperature 96.8 F L Pulse Rate [Pulse Oximeter] 115 H 96 109 H Blood Pressure [Ri ght Upper Arm] 109/75 Pulse Oximetry 100 100 97 Oxygen Delivery Me thod Room Air Room Air Room Air Documenting provider has reviewed patient's vital signs: yes Course Course Hospital Course: I discussed with the patient, that her chest x-ray showed no acute findings, her D-dimer was mildly elevated at 0.74, which is out of the normal range, I would recommend that we do a chest CT, but she declined this intervention, knowing that full well that we could miss a pulmonary embolism without doing this, I agree that she does not have other stigmata, but given the fact she is high risk with her history of malignancy, I do recommend she do this. She understands the risks, of not doing this, and fully would like the treatment for the cough. She does have influenza a, but is out of the treatment paradigm as she is now greater than 7 days from the start. Prednisone, along with albuterol is prescribed, I went over the risks benefits and side effects of this with her Vital Signs Vital signs: Initial Vital Signs Temperature 96.8 F L 05/11/22 14:01 Temperature Source Temporal Artery Scan 05/11/22 14:01 Pulse Rate 115 H 05/11/22 14:01 Blood Pressure 109/75 05/11/22 14:01 Blood Pressure Mean 86 05/11/22 14:01 Blood Pressure Position Sitting 05/11/22 14:01 Pulse Oximetry 100 05/11/22 14:01 Oxygen Delivery Method 05/11/22 14:01 Vital Signs Temperature 96.8 F L 05/11/22 14:01 Pulse Rate 115 H 05/11/22 14:01 Blood Pressure 109/75 05/11/22 14:01 Pulse Oximetry 100 05/11/22 14:01 Oxygen Delivery Method 05/11/22 14:01 Temperature 96.8 F L 05/11/22 14:01 Pulse Rate 109 H 05/11/22 15:37 Blood Pressure 109/75 05/11/22 14:01 Pulse Oximetry 97 05/11/22 15:37 Oxygen Delivery Method 05/11/22 15:37 MDM - SOB/Dyspnea MDM Narrative Medical decision making narrative: Differential diagnosis include a viral upper respiratory illness, histoplasmosis, tuberculosis, pneumonia, COPD exacerbation, emphysema, strep throat illness, bronchitis, asthma, reactive airway disease, chronic cough, medication side effects, allergic rhinitis with postnasal drip, foreign body aspiration, aspiration pneumonia, bronchiolitis, and gastroesophageal reflux disease as well as multiple other considerations. Lab Data Labs: Lab Results 05/11/22 05/11/22 05/11/22 Range/Units 14:17 14:25 14:25 WBC 3.37 L (4.50-11.00) K/uL RBC 3.06 L (4.00-5.20) m/uL Hgb 10.0 L (12.0-16.0) gm/dL Hct 30.3 L (33.0-51.0) % MCV 99 (80-100) fL MCH 33 (26-34) pg MCHC 33 (32-36) gm/dL RDW Coeff of Claire 11.8 (11.5-15.5) % Plt Count 76 L (140-440) K/uL Neut % (Auto) 62.6 (42.0-72.0) % Lymph % (Auto) 20.2 (20-44) % Coal % (Auto) 13.9 H (0.0-11.0) % Eos % (Auto) 1.5 (0.0-7.0) % Baso % (Auto) 0.3 (0.0-3.0) % Neut # (Auto) 2.10 (1.7-7.0) K/uL Lymph # (Auto) 0.70 L (0.90-2.90) K/uL Coal # (Auto) 0.50 (0.00-0.90) K/UL Eos # (Auto) 0.10 (0.00-0.50) K/uL Baso # (Auto) 0.00 (0.00-0.30) K/uL Abs Immat Gran (auto) 0.10 (0.00-0.30) K/uL Imm/Tot Granulo (auto) 1.5 % D-Dimer Quant (PE/DVT) 0.74 H (0.00-0.50) ug/ml SARS-CoV-2 (PCR) Negative SARS-CoV-2 (Negative) Influenza Type A (PCR) POSITIVE PCR FLU A A (Negative) Influenza Type B (PCR) Negative PCR FLU B (Negative) RSV (PCR) Negative PCR RSV (Negative) Discharge Plan Discharge Clinical Impression: Influenza A, Cough Patient Disposition: Home, Self-Care Condition: Stable Instructions: Chronic Cough (ED) Additional Instructions: Home rest use of medications as directed, return here if increasing coughing shortness of breath passing out chest pain swelling of the legs. Taking medications as directed I recommend following up with her primary care physician in the next 2 weeks. Prescriptions: New prednisone 50 mg tablet 50 mg PO DAILY Qty: 5 0RF albuterol sulfate 90 mcg/actuation HFA aerosol inhaler 2 puff inhalation Q6H PRN (Reason: shortness of breath or wheezing) Qty: 6.7 0RF No Action cetirizine 10 mg tablet 10 mg PO DAILY ibuprofen 200 mg tablet 200 mg PO .Q6h Prn acetaminophen 325 mg capsule 325 mg PO Q6H PRN olanzapine 5 mg tablet 5 mg PO .qhs Qty: 30 0RF Hold Instructions: pt did not tolerate in the past Rx Instructions: 1 tab at bedtime days 1-4 of each chemo treatment. Do not take at the same time as ativan (lorazepam). dexamethasone 4 mg tablet 4 mg PO BID Qty: 24 1RF ondansetron 8 mg tablet,disintegrating 8 mg PO Q8H PRN (Reason: nausea) Qty: 30 0RF Rx Instructions: For chemo related nausea not controlled with compazine. May use starting day 2 after chemo. lidocaine-prilocaine 2.5-2.5 % cream topical PRN (Reason: port access) senna 8.6 mg capsule 8.6 mg PO DAILY calcium carbonate 500 mg calcium (1,250 mg) tablet,chewable 500 mg PO Q4-6H PRN prochlorperazine maleate 10 mg tablet 10 mg PO QID PRN (Reason: nausea) Qty: 30 2RF lorazepam 0.5 mg tablet 0.5 mg PO Q4H PRN (Reason: nausea) Qty: 25 0RF Rx Instructions: chemotherapy related nausea if other antinausea mediations are ineffective, or for inability to sleep evening after chemotherapy. clindamycin phosphate 1 % gel 1 applic topical BID Qty: 30 0RF Rx Instructions: Apply a thin film to the cleansed affected area. Massage gently into affected areas. Follow Up/Referrals: Hardy Vital MD [Primary Care Provider] - Stand Alone Forms: [facility]
[2022-05-11 15:17] LABS: PCR FLU A POSITIVE PCR FLU A (Negative); PCR FLU B Negative PCR FLU B (Negative); PCR RSV Negative PCR RSV (Negative)
[2022-05-11 15:25] LABS: SARS PCR* Negative SARS-CoV-2 (Negative)
[2022-05-11 15:25] LABS: Slide Review Reflex No
[2022-05-11 15:27] LABS: D Dimer Quantitative* 0.74 ug/ml (0.00-0.50)
[2022-05-11 15:37] VITALS: PULSE 109; O2SAT 97
[2022-05-11 16:04] VITALS: PULSE 104; O2SAT 98
== END 2022-05-11 16:08 | disposition home or self-care (01) ==
PROVIDERS: Emergency Provider Family Medicine; PCP Family Medicine
DX: J10.1 Influenza due to other identified influenza virus with other respiratory manifestations (principal); R05.9 Cough, unspecified
CPT/HCPCS: 36415; 71046; 85025; 85379; 87502; 87634; 87635; 94640; 99284

== ENCOUNTER 2022-05-28 10:49 | Outpatient (RCR) | payer MEDICAID, SELFPAY ==
[2022-01-01 09:21] VITALS: BP 110/75; PULSE 105; RESP 16; TEMP 36.6; O2SAT 92
[2022-01-01 09:35] LABS: Basophils Percent Auto 0.6 % (0.0-3.0); Eosinophils Percent Auto 2.6 % (0.0-7.0); Hematocrit 36.2 % (33.0-51.0); Hemoglobin* 12.3 gm/dL (12.0-16.0); Mean Corpuscular HGB Conc 34 gm/dL (32-36); Mean Corpuscular Hemoglobin 30 pg (26-34); Mean Corpuscular Volume 88 fL (80-100); Monocytes Percent Auto 9.1 % (0.0-11.0); Neutrophils Percent Auto 42.7 % (42.0-72.0); Platelet Count* 241 K/uL (140-440); RDW Coefficient of Variation % 12.5 % (11.5-15.5); Red Blood Count 4.12 m/uL (4.00-5.20); White Blood Count* 3.51 K/uL (4.50-11.00)
[2022-01-01 09:59] LABS: Slide Review Reflex No
[2022-01-01 12:21] LABS: Albumin* 4.2 g/dL (3.3-5.0); Chloride* 107 mmol/L (96-114)
[2022-01-01 12:22] LABS: Potassium* 3.7 mmol/L (3.6-5.1); Sodium* 138 mmol/L (135-149)
[2022-01-01 12:24] LABS: Alkaline Phosphatase* 66 U/L (40-150); Aspartate Amino Transferase* 46 U/L (12-35); Bilirubin Total* 0.2 mg/dL (0.1-1.5); Blood Urea Nitrogen* 13 mg/dL (5-24); Carbon Dioxide* 24 mmol/L (20-32); Creatinine* 0.7 mg/dL (0.5-1.5); Estimated Glomerular Filt Rate 113 ml/min; Total Protein* 7.1 g/dL (6.0-8.3)
[2022-01-01 12:25] LABS: Alanine Aminotransferase* 60 U/L (4-35); Calcium* 8.9 mg/dL (8.4-10.6); Glucose* 90 mg/dL (60-115)
[2022-01-01] MEDS: PALONOSETRON 0.25 MG/5 ML inj IV (12:43)
[2022-01-01] MEDS: dexAMETHasone 20 MG in 0.9 % SODIUM CHLORIDE 100 ml 100 ML 408 MG IVPB (12:49)
[2022-01-01] MEDS: FAMOTIDINE 20 MG, diphenhydrAMINE 50 MG in 0.9 % SODIUM CHLORIDE 100 ml 100 ML 309 MG IVPB (13:11)
[2022-01-01] MEDS: HEPARIN 500 UNIT/5 ML SYRINGE IVF (15:38)
[2022-01-01] MEDS: SODIUM CHLORIDE 0.9 % (FLUSH) 10 ML SYRINGE IVF (15:38)
[2022-01-07 15:07] LABS: Basophils Percent Auto 0.3 % (0.0-3.0); Eosinophils Percent Auto 0.8 % (0.0-7.0); Hematocrit 37.7 % (33.0-51.0); Hemoglobin* 12.6 gm/dL (12.0-16.0); Immature Granulocytes Abs Auto 0.01 K/uL (0.00-0.30); Lymphocytes Percent Auto 46.4 % (20-44); Mean Corpuscular HGB Conc 33 gm/dL (32-36); Mean Corpuscular Hemoglobin 30 pg (26-34); Mean Corpuscular Volume 89 fL (80-100); Monocytes Percent Auto 5.2 % (0.0-11.0); Platelet Count* 263 K/uL (140-440); RDW Coefficient of Variation % 12.6 % (11.5-15.5); Red Blood Count 4.24 m/uL (4.00-5.20); White Blood Count* 3.66 K/uL (4.50-11.00)
[2022-01-07 15:24] LABS: Slide Review Reflex No
[2022-01-07 15:31] LABS: Albumin* 4.2 g/dL (3.3-5.0); Chloride* 106 mmol/L (96-114); Potassium* 4.5 mmol/L (3.6-5.1); Sodium* 140 mmol/L (135-149)
[2022-01-07 15:33] LABS: Bilirubin Total* 0.1 mg/dL (0.1-1.5); Carbon Dioxide* 27 mmol/L (20-32); Creatinine* 0.7 mg/dL (0.5-1.5); Estimated Glomerular Filt Rate 113 ml/min
[2022-01-07 15:34] LABS: Alanine Aminotransferase* 51 U/L (4-35); Alkaline Phosphatase* 56 U/L (40-150); Aspartate Amino Transferase* 35 U/L (12-35); Blood Urea Nitrogen* 14 mg/dL (5-24); Calcium* 8.6 mg/dL (8.4-10.6); Glucose* 125 mg/dL (60-115)
[2022-01-07 17:23] LABS: Thyroid Stimulating Hormone* 0.398 uIU/mL (0.270-4.20)
[2022-01-08] MEDS: PEMBROLIZUMAB 200 MG, TUBING PRIMARY 1 EACH, In-line 0.2 micron filter set 1 EACH in 0.... 216 MG IVPB (09:52)
[2022-01-08] MEDS: PALONOSETRON 0.25 MG/5 ML inj IV (10:23)
[2022-01-08] MEDS: dexAMETHasone 20 MG in 0.9 % SODIUM CHLORIDE 100 ml 100 ML 408 MG IVPB (10:23)
[2022-01-08] MEDS: FAMOTIDINE 20 MG, diphenhydrAMINE 25 MG in 0.9 % SODIUM CHLORIDE 100 ml 100 ML 309 MG IVPB (10:42)
[2022-01-15 09:02] VITALS: BP 106/78; PULSE 88; RESP 16; TEMP 36.4; O2SAT 94
[2022-01-15 09:16] LABS: Basophils Absolute Auto 0.02 K/uL (0.00-0.30); Basophils Percent Auto 0.4 % (0.0-3.0); Eosinophils Absolute Auto 0.02 K/uL (0.00-0.50); Eosinophils Percent Auto 0.4 % (0.0-7.0); Hematocrit 36.7 % (33.0-51.0); Hemoglobin* 12.5 gm/dL (12.0-16.0); Immature Granulocytes Abs Auto 0.01 K/uL (0.00-0.30); Lymphocytes Absolute Auto 2.46 K/uL (0.90-2.90); Lymphocytes Percent Auto 43.4 % (20-44); Mean Corpuscular HGB Conc 34 gm/dL (32-36); Mean Corpuscular Hemoglobin 30 pg (26-34); Mean Corpuscular Volume 87 fL (80-100); Monocytes Percent Auto 7.2 % (0.0-11.0); Neutrophils Absolute Auto 2.75 K/uL (1.7-7.0); Neutrophils Percent Auto 48.4 % (42.0-72.0); Platelet Count* 239 K/uL (140-440); RDW Coefficient of Variation % 12.3 % (11.5-15.5); Red Blood Count 4.21 m/uL (4.00-5.20); White Blood Count* 5.67 K/uL (4.50-11.00)
[2022-01-15 09:22] LABS: Slide Review Reflex No
[2022-01-15 09:29] LABS: Albumin* 4.3 g/dL (3.3-5.0)
[2022-01-15 09:30] LABS: Chloride* 105 mmol/L (96-114); Potassium* 3.4 mmol/L (3.6-5.1); Sodium* 138 mmol/L (135-149)
[2022-01-15 09:32] LABS: Alkaline Phosphatase* 61 U/L (40-150); Aspartate Amino Transferase* 27 U/L (12-35); Bilirubin Total* 0.4 mg/dL (0.1-1.5); Blood Urea Nitrogen* 12 mg/dL (5-24); Carbon Dioxide* 27 mmol/L (20-32); Creatinine* 0.8 mg/dL (0.5-1.5); Estimated Glomerular Filt Rate 97 ml/min; Total Protein* 7.2 g/dL (6.0-8.3)
[2022-01-15 09:33] LABS: Alanine Aminotransferase* 36 U/L (4-35); Calcium* 8.9 mg/dL (8.4-10.6); Glucose* 104 mg/dL (60-115)
[2022-01-15] MEDS: PALONOSETRON 0.25 MG/5 ML inj IV (10:20)
[2022-01-15] MEDS: SODIUM CHLORIDE 0.9 % (FLUSH) 10 ML SYRINGE IVF ×2 (10:21→13:16)
[2022-01-15] MEDS: 0.9 % SODIUM CHLORIDE 250 ml IV (10:21)
[2022-01-15] MEDS: dexAMETHasone 20 MG in 0.9 % SODIUM CHLORIDE 100 ml 100 ML 408 MG IVPB (10:27)
[2022-01-15] MEDS: FAMOTIDINE 20 MG, diphenhydrAMINE 25 MG in 0.9 % SODIUM CHLORIDE 100 ml 100 ML 309 MG IVPB (10:48)
[2022-01-15] MEDS: HEPARIN 500 UNIT/5 ML SYRINGE IVF (13:16)
[2022-01-22 09:11] VITALS: BP 110/74; PULSE 87; RESP 16; TEMP 37; O2SAT 97
[2022-01-22 09:37] LABS: Basophils Absolute Auto 0.02 K/uL (0.00-0.30); Basophils Percent Auto 0.4 % (0.0-3.0); Eosinophils Absolute Auto 0.01 K/uL (0.00-0.50); Eosinophils Percent Auto 0.2 % (0.0-7.0); Hematocrit 35.3 % (33.0-51.0); Immature Granulocytes Abs Auto 0.01 K/uL (0.00-0.30); Lymphocytes Percent Auto 47.6 % (20-44); Mean Corpuscular HGB Conc 34 gm/dL (32-36); Mean Corpuscular Hemoglobin 30 pg (26-34); Mean Corpuscular Volume 87 fL (80-100); Monocytes Percent Auto 6.3 % (0.0-11.0); Neutrophils Absolute Auto 2.08 K/uL (1.7-7.0); Neutrophils Percent Auto 45.3 % (42.0-72.0); Platelet Count* 163 K/uL (140-440); RDW Coefficient of Variation % 12.4 % (11.5-15.5); Red Blood Count 4.06 m/uL (4.00-5.20)
[2022-01-22 09:46] LABS: Slide Review Reflex No
[2022-01-22 10:09] LABS: Albumin* 4.1 g/dL (3.3-5.0); Chloride* 105 mmol/L (96-114); Potassium* 3.7 mmol/L (3.6-5.1); Sodium* 138 mmol/L (135-149)
[2022-01-22 10:12] LABS: Alanine Aminotransferase* 48 U/L (4-35); Alkaline Phosphatase* 67 U/L (40-150); Aspartate Amino Transferase* 37 U/L (12-35); Bilirubin Total* 0.4 mg/dL (0.1-1.5); Blood Urea Nitrogen* 10 mg/dL (5-24); Carbon Dioxide* 26 mmol/L (20-32); Creatinine* 0.9 mg/dL (0.5-1.5); Estimated Glomerular Filt Rate 84 ml/min; Glucose* 90 mg/dL (60-115); Total Protein* 6.9 g/dL (6.0-8.3)
[2022-01-22 10:13] LABS: Calcium* 8.8 mg/dL (8.4-10.6)
[2022-01-22] MEDS: dexAMETHasone 20 MG in 0.9 % SODIUM CHLORIDE 100 ml 100 ML 408 MG IVPB (11:31)
[2022-01-22] MEDS: PALONOSETRON 0.25 MG/5 ML inj IV (11:31)
[2022-01-22] MEDS: FAMOTIDINE 20 MG, diphenhydrAMINE 25 MG in 0.9 % SODIUM CHLORIDE 100 ml 100 ML 307.5 MG IVPB (11:52)
[2022-01-22] MEDS: CARBOplatin 165 MG, TUBING SECONDARY 1 EACH in 0.9 % SODIUM CHLORIDE 250 ml 250 ML 533 MG IVPB (13:24)
[2022-01-22] MEDS: SODIUM CHLORIDE 0.9 % (FLUSH) 10 ML SYRINGE IVF (14:05)
[2022-01-22] MEDS: HEPARIN 500 UNIT/5 ML SYRINGE IVF (14:05)
--- NOTE | 2022-01-22 15:56 | ONC.NURNOTE ---
Prescription for emla cream called into [facility] pharmacy in [place].
--- NOTE | 2022-01-25 09:11 | URNOTE ---
Request for prioor authorization of Emend [id number]. Patient carries Medicaid as primary insurance. Per [place] Medicaid Fee Schedule no prior authorization is required for Emend. Services are based on medical necessity.
[2022-01-28 08:39] LABS: Albumin* 3.8 g/dL (3.3-5.0)
[2022-01-28 08:40] LABS: Chloride* 107 mmol/L (96-114); Potassium* 3.6 mmol/L (3.6-5.1); Sodium* 141 mmol/L (135-149)
[2022-01-28 08:42] LABS: Aspartate Amino Transferase* 35 U/L (12-35); Bilirubin Total* 0.3 mg/dL (0.1-1.5); Carbon Dioxide* 26 mmol/L (20-32); Creatinine* 0.7 mg/dL (0.5-1.5); Estimated Glomerular Filt Rate 113 ml/min
[2022-01-28 08:43] LABS: Alanine Aminotransferase* 43 U/L (4-35); Alkaline Phosphatase* 56 U/L (40-150); Blood Urea Nitrogen* 13 mg/dL (5-24); Calcium* 8.7 mg/dL (8.4-10.6); Glucose* 98 mg/dL (60-115); Total Protein* 6.5 g/dL (6.0-8.3)
[2022-01-28 08:59] LABS: Basophils Percent Auto 0.3 % (0.0-3.0); Eosinophils Percent Auto 0.3 % (0.0-7.0); Hematocrit 33.5 % (33.0-51.0); Hemoglobin* 11.3 gm/dL (12.0-16.0); Immature Granulocytes Abs Auto 0.01 K/uL (0.00-0.30); Lymphocytes Percent Auto 53.9 % (20-44); Mean Corpuscular HGB Conc 34 gm/dL (32-36); Mean Corpuscular Hemoglobin 30 pg (26-34); Mean Corpuscular Volume 88 fL (80-100); Monocytes Percent Auto 5.2 % (0.0-11.0); Platelet Count* 125 K/uL (140-440); RDW Coefficient of Variation % 12.6 % (11.5-15.5); Red Blood Count 3.81 m/uL (4.00-5.20); White Blood Count* 3.82 K/uL (4.50-11.00)
[2022-01-28 09:13] LABS: Slide Review Reflex No
[2022-01-29] MEDS: 0.9 % SODIUM CHLORIDE 1000 ml 1,000 ML 333.33 ML IV (08:45)
[2022-01-29 09:09] VITALS: BP 117/81; PULSE 88; RESP 16; TEMP 36.6; O2SAT 96
[2022-01-29] MEDS: dexAMETHasone 20 MG in 0.9 % SODIUM CHLORIDE 100 ml 100 ML 408 MG IVPB (10:25)
[2022-01-29] MEDS: PALONOSETRON 0.25 MG/5 ML inj IV (10:25)
[2022-01-29] MEDS: 0.9 % SODIUM CHLORIDE 250 ml IV (10:26)
[2022-01-29] MEDS: SODIUM CHLORIDE 0.9 % (FLUSH) 10 ML SYRINGE IVF (10:26)
[2022-01-29] MEDS: HEPARIN 500 UNIT/5 ML SYRINGE IVF (10:26)
[2022-01-29] MEDS: FAMOTIDINE 20 MG, diphenhydrAMINE 25 MG in 0.9 % SODIUM CHLORIDE 100 ml 100 ML 309 MG IVPB (10:42)
[2022-01-29] MEDS: PEMBROLIZUMAB 200 MG, TUBING PRIMARY 1 EACH, In-line 0.2 micron filter set 1 EACH in 0.... 216 MG IVPB (11:16)
[2022-01-29] MEDS: CARBOPLATIN IVPB (12:58)
[2022-01-29] MEDS: TUBING SECONDARY IVPB (12:58)
[2022-01-29] MEDS: SODIUM CHLORIDE 0.9% IVPB (12:58)
[2022-02-05 09:29] LABS: Basophils Percent Auto 0.3 % (0.0-3.0); Eosinophils Percent Auto 0.3 % (0.0-7.0); Hematocrit 31.9 % (33.0-51.0); Hemoglobin* 11.1 gm/dL (12.0-16.0); Lymphocytes Percent Auto 56.5 % (20-44); Mean Corpuscular HGB Conc 35 gm/dL (32-36); Mean Corpuscular Hemoglobin 30 pg (26-34); Mean Corpuscular Volume 87 fL (80-100); Monocytes Percent Auto 4.3 % (0.0-11.0); Neutrophils Percent Auto 38.6 % (42.0-72.0); Platelet Count* 180 K/uL (140-440); RDW Coefficient of Variation % 13.1 % (11.5-15.5); Red Blood Count 3.66 m/uL (4.00-5.20)
[2022-02-05 09:32] LABS: Slide Review Reflex No
[2022-02-05 09:35] VITALS: BP 104/73; PULSE 93; RESP 16; TEMP 36.1; O2SAT 98
[2022-02-05 09:45] LABS: Albumin* 4.3 g/dL (3.3-5.0); Chloride* 105 mmol/L (96-114); Sodium* 139 mmol/L (135-149)
[2022-02-05 09:46] LABS: Potassium* 3.6 mmol/L (3.6-5.1)
[2022-02-05 09:48] LABS: Alanine Aminotransferase* 46 U/L (4-35); Alkaline Phosphatase* 59 U/L (40-150); Aspartate Amino Transferase* 32 U/L (12-35); Bilirubin Total* 0.6 mg/dL (0.1-1.5); Blood Urea Nitrogen* 15 mg/dL (5-24); Carbon Dioxide* 27 mmol/L (20-32); Creatinine* 0.9 mg/dL (0.5-1.5); Estimated Glomerular Filt Rate 84 ml/min; Glucose* 118 mg/dL (60-115); Total Protein* 6.8 g/dL (6.0-8.3)
[2022-02-05 09:49] LABS: Calcium* 9.3 mg/dL (8.4-10.6)
[2022-02-05] MEDS: PALONOSETRON 0.25 MG/5 ML inj IV (10:49)
[2022-02-05] MEDS: dexAMETHasone 20 MG in 0.9 % SODIUM CHLORIDE 100 ml 100 ML 408 MG IVPB (10:50)
[2022-02-05 11:02] VITALS: BMI 24.0
[2022-02-05] MEDS: FAMOTIDINE 20 MG, diphenhydrAMINE 25 MG in 0.9 % SODIUM CHLORIDE 100 ml 100 ML 410 MG IVPB (11:09)
[2022-02-05] MEDS: CARBOplatin 165 MG, TUBING SECONDARY 1 EACH in 0.9 % SODIUM CHLORIDE 250 ml 250 ML 533 MG IVPB (12:39)
[2022-02-05] MEDS: HEPARIN 500 UNIT/5 ML SYRINGE IVF (13:19)
[2022-02-05] MEDS: SODIUM CHLORIDE 0.9 % (FLUSH) 10 ML SYRINGE IVF (13:19)
[2022-02-12 10:55] VITALS: BP 119/81; PULSE 106; RESP 18; TEMP 36.6; O2SAT 97
[2022-02-12 11:07] LABS: Eosinophils Percent Auto 0.5 % (0.0-7.0); Hematocrit 30.5 % (33.0-51.0); Hemoglobin* 10.4 gm/dL (12.0-16.0); Immature Granulocytes Abs Auto 0.01 K/uL (0.00-0.30); Lymphocytes Percent Auto 58.2 % (20-44); Mean Corpuscular HGB Conc 34 gm/dL (32-36); Mean Corpuscular Hemoglobin 30 pg (26-34); Mean Corpuscular Volume 89 fL (80-100); Monocytes Percent Auto 5.7 % (0.0-11.0); Neutrophils Percent Auto 35.3 % (42.0-72.0); Platelet Count* 244 K/uL (140-440); RDW Coefficient of Variation % 13.9 % (11.5-15.5); Red Blood Count 3.44 m/uL (4.00-5.20); White Blood Count* 3.83 K/uL (4.50-11.00)
[2022-02-12 11:19] LABS: Albumin* 4.4 g/dL (3.3-5.0); Chloride* 107 mmol/L (96-114)
[2022-02-12 11:20] LABS: Potassium* 3.6 mmol/L (3.6-5.1); Sodium* 140 mmol/L (135-149)
[2022-02-12 11:22] LABS: Alkaline Phosphatase* 60 U/L (40-150); Aspartate Amino Transferase* 33 U/L (12-35); Bilirubin Total* 0.4 mg/dL (0.1-1.5); Blood Urea Nitrogen* 10 mg/dL (5-24); Carbon Dioxide* 24 mmol/L (20-32); Creatinine* 0.6 mg/dL (0.5-1.5); Est. Creatinine Clearance* 109.78; Estimated Glomerular Filt Rate 118 ml/min; Glucose* 122 mg/dL (60-115)
[2022-02-12 11:23] LABS: Alanine Aminotransferase* 52 U/L (4-35); Calcium* 9.1 mg/dL (8.4-10.6)
[2022-02-12 11:32] LABS: Slide Review Reflex No
[2022-02-12] MEDS: 0.9 % SODIUM CHLORIDE 250 ml IV (12:02)
[2022-02-12] MEDS: PALONOSETRON 0.25 MG/5 ML inj IV (12:03)
[2022-02-12] MEDS: dexAMETHasone 20 MG in 0.9 % SODIUM CHLORIDE 100 ml 100 ML 408 MG IVPB (12:03)
[2022-02-12] MEDS: FAMOTIDINE 20 MG, diphenhydrAMINE 25 MG in 0.9 % SODIUM CHLORIDE 100 ml 100 ML 309 MG IVPB (12:22)
[2022-02-12] MEDS: HEPARIN 500 UNIT/5 ML SYRINGE IVF (14:31)
[2022-02-12] MEDS: SODIUM CHLORIDE 0.9 % (FLUSH) 10 ML SYRINGE IVF (14:31)
--- NOTE | 2022-02-12 16:04 | ONC.NURNOTE ---
Pt called this am stating her son tested positive for COVID this morning, symptoms began yesterday. Pt did a home Covid test this morning and that was negative, pt denies symptoms. Discussed with Tana Gaspar APRN and she requested a PCR covid test prior to pt coming into [facility]. Test completed and negative.
[2022-02-19 09:22] VITALS: BP 105/74; PULSE 97; RESP 16; TEMP 36.3; O2SAT 97
[2022-02-19 09:56] LABS: Basophils Percent Auto 0.3 % (0.0-3.0); Eosinophils Percent Auto 0.3 % (0.0-7.0); Hematocrit 32.3 % (33.0-51.0); Hemoglobin* 11.2 gm/dL (12.0-16.0); Immature Granulocytes Abs Auto 0.01 K/uL (0.00-0.30); Lymphocytes Percent Auto 57.8 % (20-44); Mean Corpuscular HGB Conc 35 gm/dL (32-36); Mean Corpuscular Hemoglobin 31 pg (26-34); Mean Corpuscular Volume 89 fL (80-100); Monocytes Percent Auto 6.6 % (0.0-11.0); Neutrophils Percent Auto 34.7 % (42.0-72.0); Platelet Count* 268 K/uL (140-440); RDW Coefficient of Variation % 14.6 % (11.5-15.5); Red Blood Count 3.65 m/uL (4.00-5.20); White Blood Count* 3.65 K/uL (4.50-11.00)
[2022-02-19 10:07] LABS: Albumin* 4.4 g/dL (3.3-5.0); Chloride* 102 mmol/L (96-114); Sodium* 138 mmol/L (135-149)
[2022-02-19 10:08] LABS: Potassium* 3.6 mmol/L (3.6-5.1)
[2022-02-19 10:10] LABS: Alanine Aminotransferase* 95 U/L (4-35); Alkaline Phosphatase* 68 U/L (40-150); Aspartate Amino Transferase* 52 U/L (12-35); Bilirubin Total* 0.5 mg/dL (0.1-1.5); Blood Urea Nitrogen* 11 mg/dL (5-24); Carbon Dioxide* 25 mmol/L (20-32); Creatinine* 0.7 mg/dL (0.5-1.5); Estimated Glomerular Filt Rate 113 ml/min; Glucose* 138 mg/dL (60-115); Total Protein* 7.2 g/dL (6.0-8.3)
[2022-02-19 10:11] LABS: Calcium* 9.4 mg/dL (8.4-10.6)
[2022-02-19 10:11] LABS: Slide Review Reflex No
[2022-02-19 11:24] LABS: SARS PCR* Negative SARS-CoV-2 (Negative)
[2022-02-19] MEDS: PEMBROLIZUMAB 200 MG, TUBING PRIMARY 1 EACH, In-line 0.2 micron filter set 1 EACH in 0.... 216 MG IVPB (12:46)
[2022-02-19] MEDS: PALONOSETRON 0.25 MG/5 ML inj IV (13:21)
[2022-02-19] MEDS: dexAMETHasone 20 MG in 0.9 % SODIUM CHLORIDE 100 ml 100 ML 408 MG IVPB (13:21)
[2022-02-19] MEDS: FAMOTIDINE 20 MG, diphenhydrAMINE 25 MG in 0.9 % SODIUM CHLORIDE 100 ml 100 ML 309 MG IVPB (13:36)
[2022-02-19] MEDS: TUBING PRIMARY IV (14:01)
[2022-02-19] MEDS: [UNRECOGNIZED DRUG - OTHER] IV (14:01)
[2022-02-19] MEDS: PACLITAXEL IV (14:01)
[2022-02-19] MEDS: MICRON FILTER SET IV (14:01)
[2022-02-19] MEDS: IN LINE IV (14:01)
[2022-02-21 15:23] LABS: Cortisol, Serum 16.2 ug/dL
[2022-02-26 09:11] VITALS: BP 104/71; PULSE 97; RESP 16; TEMP 36.9; O2SAT 96
[2022-02-26 09:42] LABS: Basophils Percent Auto 0.2 % (0.0-3.0); Hematocrit 30.2 % (33.0-51.0); Hemoglobin* 10.3 gm/dL (12.0-16.0); Immature Granulocytes Abs Auto 0.02 K/uL (0.00-0.30); Lymphocytes Percent Auto 46.9 % (20-44); Mean Corpuscular HGB Conc 34 gm/dL (32-36); Mean Corpuscular Hemoglobin 31 pg (26-34); Mean Corpuscular Volume 91 fL (80-100); Monocytes Percent Auto 9.3 % (0.0-11.0); Neutrophils Percent Auto 43.1 % (42.0-72.0); Platelet Count* 243 K/uL (140-440); RDW Coefficient of Variation % 16.2 % (11.5-15.5); Red Blood Count 3.33 m/uL (4.00-5.20); White Blood Count* 4.18 K/uL (4.50-11.00)
[2022-02-26 09:51] LABS: Slide Review Reflex No
[2022-02-26 09:58] LABS: Albumin* 4.3 g/dL (3.3-5.0); Chloride* 104 mmol/L (96-114); Potassium* 3.6 mmol/L (3.6-5.1); Sodium* 138 mmol/L (135-149)
[2022-02-26 10:01] LABS: Alkaline Phosphatase* 79 U/L (40-150); Aspartate Amino Transferase* 39 U/L (12-35); Bilirubin Total* 0.6 mg/dL (0.1-1.5); Blood Urea Nitrogen* 15 mg/dL (5-24); Carbon Dioxide* 24 mmol/L (20-32); Creatinine* 0.8 mg/dL (0.5-1.5); Est. Creatinine Clearance* 82.33; Estimated Glomerular Filt Rate 97 ml/min; Glucose* 104 mg/dL (60-115); Total Protein* 7.1 g/dL (6.0-8.3)
[2022-02-26 10:02] LABS: Alanine Aminotransferase* 89 U/L (4-35); Calcium* 9.4 mg/dL (8.4-10.6)
[2022-02-26] MEDS: PALONOSETRON 0.25 MG/5 ML inj IV (10:38)
[2022-02-26] MEDS: dexAMETHasone 20 MG in 0.9 % SODIUM CHLORIDE 100 ml 100 ML 408 MG IVPB (10:39)
--- NOTE | 2022-02-26 10:54 | ONC.NURNOTE ---
Patient states eating and drinking. denies mouth sores or nausea. down 2 lbs. 14 from beginning of treatments. states no more feeling of dizziness or passing out. states hand and feet neuropathy about the same maybe a bit better. denies feet reddness or dryness. Tana Fajardo APRN to assess pt before treatment and adjust doses.
[2022-02-26] MEDS: FAMOTIDINE 20 MG, diphenhydrAMINE 25 MG in 0.9 % SODIUM CHLORIDE 100 ml 100 ML 307.5 MG IVPB (11:07)
[2022-02-26] MEDS: 0.9 % SODIUM CHLORIDE 250 ml IV (11:09)
[2022-02-26] MEDS: HEPARIN 500 UNIT/5 ML SYRINGE IVF (11:10)
[2022-02-26] MEDS: SODIUM CHLORIDE 0.9 % (FLUSH) 10 ML SYRINGE IVF (11:10)
[2022-02-26] MEDS: [UNRECOGNIZED DRUG - OTHER] IV (11:40)
[2022-02-26] MEDS: PACLITAXEL IV (11:40)
[2022-02-26] MEDS: IN LINE IV (11:40)
[2022-02-26] MEDS: MICRON FILTER SET IV (11:40)
[2022-02-26] MEDS: TUBING PRIMARY IV (11:40)
[2022-02-26] MEDS: CARBOplatin 180 MG, TUBING SECONDARY 1 EACH in 0.9 % SODIUM CHLORIDE 250 ml 250 ML 536 MG IVPB (12:48)
[2022-03-04 14:51] LABS: Basophils Percent Auto 0.2 % (0.0-3.0); Eosinophils Percent Auto 0.2 % (0.0-7.0); Hematocrit 31.2 % (33.0-51.0); Hemoglobin* 10.5 gm/dL (12.0-16.0); Immature Granulocytes Abs Auto 0.02 K/uL (0.00-0.30); Lymphocytes Percent Auto 48.3 % (20-44); Mean Corpuscular HGB Conc 34 gm/dL (32-36); Mean Corpuscular Hemoglobin 32 pg (26-34); Mean Corpuscular Volume 94 fL (80-100); Monocytes Percent Auto 6.8 % (0.0-11.0); Platelet Count* 212 K/uL (140-440); RDW Coefficient of Variation % 17.6 % (11.5-15.5); Red Blood Count 3.33 m/uL (4.00-5.20); White Blood Count* 4.39 K/uL (4.50-11.00)
[2022-03-04 14:53] LABS: Slide Review Reflex No
[2022-03-04 15:06] LABS: Albumin* 4.7 g/dL (3.3-5.0); Chloride* 102 mmol/L (96-114); Sodium* 140 mmol/L (135-149)
[2022-03-04 15:08] LABS: Creatinine* 0.8 mg/dL (0.5-1.5); Est. Creatinine Clearance* 82.33; Estimated Glomerular Filt Rate 97 ml/min
[2022-03-04 15:09] LABS: Alanine Aminotransferase* 138 U/L (4-35); Alkaline Phosphatase* 68 U/L (40-150); Aspartate Amino Transferase* 72 U/L (12-35); Bilirubin Total* 0.9 mg/dL (0.1-1.5); Blood Urea Nitrogen* 16 mg/dL (5-24); Calcium* 9.8 mg/dL (8.4-10.6); Carbon Dioxide* 26 mmol/L (20-32); Glucose* 126 mg/dL (60-115); Total Protein* 7.7 g/dL (6.0-8.3)
--- NOTE | 2022-03-05 08:37 | ONC.NURNOTE ---
Decrease Taxol dosing Ms. Mir was seen by Ivana Lawson APRN, CNP, [facility], on 03/04/22 for medical management of triple negative breast cancer. Per provider note, paclitaxel dosing to be further reduced to 75% for todays dose due to peripheral neuropathy. Anay adjusted today's dose, week 12 of paclitaxel, to 75% in today's treatment plan on behalf of Ivana Lawson APRN, CNP for Ms. Mir.
[2022-03-05 09:18] VITALS: BP 106/73; PULSE 81; RESP 16; TEMP 36.6; O2SAT 99
[2022-03-05] MEDS: dexAMETHasone 20 MG in 0.9 % SODIUM CHLORIDE 100 ml 100 ML 408 MG IVPB (09:46)
[2022-03-05] MEDS: PALONOSETRON 0.25 MG/5 ML inj IV (09:46)
[2022-03-05] MEDS: FAMOTIDINE 20 MG, diphenhydrAMINE 25 MG in 0.9 % SODIUM CHLORIDE 100 ml 100 ML 309 MG IVPB (10:07)
[2022-03-05] MEDS: TUBING PRIMARY IV (10:34)
[2022-03-05] MEDS: IN LINE IV (10:34)
[2022-03-05] MEDS: [UNRECOGNIZED DRUG - OTHER] IV (10:34)
[2022-03-05] MEDS: MICRON FILTER SET IV (10:34)
[2022-03-05] MEDS: PACLITAXEL IV (10:34)
[2022-03-05] MEDS: CARBOplatin 180 MG, TUBING SECONDARY 1 EACH in 0.9 % SODIUM CHLORIDE 250 ml 250 ML 536 MG IVPB (11:44)
[2022-03-05] MEDS: 0.9 % SODIUM CHLORIDE 250 ml IV (13:21)
--- NOTE | 2022-03-05 13:41 | URNOTE ---
Received request for prior auth for Cyclophosphamide (J9070) and Doxorubicin (J9000). Per [facility] fee schedule, prior authorization is not required for these medications. Services are based on medical necessity.
--- NOTE | 2022-03-05 14:06 | PC.NURSE ---
Met with patient during her infusion appointment. Discussed next phase of her treatment plan: AC+Pembro+Neulasta. Reviewed side effects and printed information given to patient.
--- NOTE | 2022-03-09 14:01 | URNOTE ---
Received request for prior auth for Pembrolizumab (J9271). Per [facility], This has been approved for for 4 doses, a total of 800mg/units (200 mg/units every 3 weeks) 03/12/2022-06/12/2022. [place]#[id number]
[2022-03-11 08:37] LABS: Basophils Percent Auto 0.2 % (0.0-3.0); Eosinophils Percent Auto 0.2 % (0.0-7.0); Hematocrit 29.5 % (33.0-51.0); Hemoglobin* 9.9 gm/dL (12.0-16.0); Immature Granulocytes Abs Auto 0.02 K/uL (0.00-0.30); Lymphocytes Percent Auto 40.7 % (20-44); Mean Corpuscular HGB Conc 34 gm/dL (32-36); Mean Corpuscular Hemoglobin 32 pg (26-34); Mean Corpuscular Volume 96 fL (80-100); Neutrophils Percent Auto 52.4 % (42.0-72.0); Platelet Count* 160 K/uL (140-440); RDW Coefficient of Variation % 18.4 % (11.5-15.5); Red Blood Count 3.08 m/uL (4.00-5.20); White Blood Count* 4.35 K/uL (4.50-11.00)
[2022-03-11 08:40] LABS: Slide Review Reflex No
[2022-03-11 08:54] LABS: Chloride* 106 mmol/L (96-114); Potassium* 3.7 mmol/L (3.6-5.1); Sodium* 138 mmol/L (135-149)
[2022-03-11 08:57] LABS: Alanine Aminotransferase* 152 U/L (4-35); Alkaline Phosphatase* 77 U/L (40-150); Aspartate Amino Transferase* 66 U/L (12-35); Bilirubin Total* 0.9 mg/dL (0.1-1.5); Blood Urea Nitrogen* 18 mg/dL (5-24); Carbon Dioxide* 26 mmol/L (20-32); Creatinine* 0.6 mg/dL (0.5-1.5); Est. Creatinine Clearance* 109.78; Estimated Glomerular Filt Rate 118 ml/min; Glucose* 92 mg/dL (60-115); Total Protein* 6.5 g/dL (6.0-8.3)
[2022-03-11 08:59] LABS: Calcium* 9.1 mg/dL (8.4-10.6)
[2022-03-11] MEDS: HEPARIN 500 UNIT/5 ML SYRINGE IVF (13:38)
[2022-03-11] MEDS: SODIUM CHLORIDE 0.9 % (FLUSH) 10 ML SYRINGE IVF (13:38)
[2022-03-12 09:51] VITALS: BP 117/82; PULSE 115; RESP 16; TEMP 36.7; O2SAT 98
--- NOTE | 2022-03-12 14:03 | URNOTE ---
Received request for prior authorization for Pegfilgrastim (J2506). Per [facility], this has been denied as it is not the preferred product in this drug class. Preferred are Fulphila, Udenyca or Ziextenzo which do not require prior authorizaiton.
[2022-03-13 02:02] LABS: Cortisol, Serum 10.9 ug/dL
--- NOTE | 2022-03-15 15:43 | PC.NURSE ---
Addendum entered by Beatriz Chu RN 03/16/22 09:57: pt called back. Appt made 03/22/22 at 0800 for fulphilia injection. pharmacy aware. Original Note: Received notification from Tana Washburn APRN that pt's insurance has approved Fulphila injection in place of Neulasta On-Pro. Pt will be getting her first AC/Pembro treatment on 03/19/2022. RN called pt to schedule an injection appointment at [facility] on 03/22/2022. Was not successful in reaching Valentina but did leave a message asking for her return call.
--- NOTE | 2022-03-16 10:12 | URNOTE ---
Received requst for Rosie ([id number]). Per [facility] fee schedule on [place], prior authorization is not required.
[2022-03-19 09:15] VITALS: BP 112/77; PULSE 99; RESP 16; TEMP 36.3; O2SAT 99
[2022-03-19 09:42] LABS: Basophils Percent Auto 0.2 % (0.0-3.0); Eosinophils Percent Auto 0.7 % (0.0-7.0); Hematocrit 31.4 % (33.0-51.0); Hemoglobin* 10.4 gm/dL (12.0-16.0); Lymphocytes Percent Auto 38.3 % (20-44); Mean Corpuscular HGB Conc 33 gm/dL (32-36); Mean Corpuscular Hemoglobin 33 pg (26-34); Mean Corpuscular Volume 99 fL (80-100); Neutrophils Percent Auto 51.8 % (42.0-72.0); Platelet Count* 178 K/uL (140-440); RDW Coefficient of Variation % 19.2 % (11.5-15.5); Red Blood Count 3.17 m/uL (4.00-5.20); White Blood Count* 4.33 K/uL (4.50-11.00)
[2022-03-19 09:46] LABS: Slide Review Reflex No
[2022-03-19] MEDS: PEMBROLIZUMAB 200 MG, TUBING PRIMARY 1 EACH, In-line 0.2 micron filter set 1 EACH in 0.... 216 MG IVPB (10:13)
[2022-03-19] MEDS: SODIUM CHLORIDE 0.9 % (FLUSH) 10 ML SYRINGE IVF (10:14)
[2022-03-19] MEDS: 0.9 % SODIUM CHLORIDE 250 ml IV (10:14)
[2022-03-19] MEDS: dexAMETHasone 12 MG in 0.9 % SODIUM CHLORIDE 100 ml 100 ML 404.8 MG IVPB (10:55)
[2022-03-19] MEDS: PALONOSETRON 0.25 MG/5 ML inj IV (10:55)
[2022-03-19] MEDS: FOSAPREPITANT 150 MG inj 150 MG in 0.9 % SODIUM CHLORIDE 250 ml 250 ML 510 MG IVPB (11:43)
[2022-03-19] MEDS: HEPARIN 500 UNIT/5 ML SYRINGE IVF (13:38)
[2022-03-22 08:10] VITALS: BP 104/70; PULSE 95; RESP 16; TEMP 36.7; O2SAT 98
[2022-03-22] MEDS: PEGFILGRASTIM-JMDB 6 MG/0.6 ML SYRINGE SUBCUT (08:20)
--- NOTE | 2022-03-22 12:53 | ONC.NURNOTE ---
Pt here for Fulphilia. Pt states she had significant fatigue this weekend following her first A/C on 03/19/22. Minimal nausea, relieved with compazine. Pt does c/o very sore finger tips, pt has occasional small amts of serous drainage at times, the 4th digit of both hands are more painful. Picture of nails sent to Tana Gaspar APRN with pt's permission and pt prescribed a clindamycin gel. Per Tana Gaspar APRN: The management of onycholysis involves the identification and treatment of the underlying condition. General nail care measures for onycholysis include: -keeping nails trimmed short -Avoiding trauma -Avoiding contact irritants -keeping nails dry (avoiding wet work) -Avoiding all nail cosmetics -protcting hands from cold or windy weather -vinegar soaks -Clindamycin gel 1% BID. Apply a thin film to the cleansed affected area. Massage gently in to affected areas. Pt called with the above information.
[2022-03-26 09:29] LABS: Albumin* 4.7 g/dL (3.3-5.0)
[2022-03-26 09:32] LABS: Aspartate Amino Transferase* 28 U/L (12-35); Total Protein* 7.3 g/dL (6.0-8.3)
[2022-03-26 09:33] LABS: Alanine Aminotransferase* 52 U/L (4-35); Alkaline Phosphatase* 79 U/L (40-150)
[2022-04-01 09:03] LABS: Albumin* 4.2 g/dL (3.3-5.0)
[2022-04-01 09:06] LABS: Alanine Aminotransferase* 56 U/L (4-35); Alkaline Phosphatase* 93 U/L (40-150); Aspartate Amino Transferase* 35 U/L (12-35); Bilirubin Direct* 0.1 mg/dL (0.0-0.5); Bilirubin Total* 0.2 mg/dL (0.1-1.5); Total Protein* 6.9 g/dL (6.0-8.3)
--- NOTE | 2022-04-01 11:35 | ONC.NURNOTE ---
Reviewed LFT results with patient via phone; no concerns, remain stable.
[2022-04-08 15:16] LABS: Basophils Absolute Auto 0.06 K/uL (0.00-0.30); Basophils Percent Auto 1.1 % (0.0-3.0); Hemoglobin* 9.7 gm/dL (12.0-16.0); Immature Granulocytes Pct Auto 1.8 %; Lymphocytes Absolute Auto 1.48 K/uL (0.90-2.90); Lymphocytes Percent Auto 26.9 % (20-44); Mean Corpuscular HGB Conc 32 gm/dL (32-36); Mean Corpuscular Hemoglobin 34 pg (26-34); Mean Corpuscular Volume 106 fL (80-100); Monocytes Percent Auto 10.4 % (0.0-11.0); Neutrophils Absolute Auto 3.29 K/uL (1.7-7.0); Neutrophils Percent Auto 59.8 % (42.0-72.0); Platelet Count* 510 K/uL (140-440); RDW Coefficient of Variation % 15.2 % (11.5-15.5); Red Blood Count 2.83 m/uL (4.00-5.20)
[2022-04-08 15:19] LABS: Slide Review Reflex No
[2022-04-08 15:20] LABS: Albumin* 4.2 g/dL (3.3-5.0)
[2022-04-08 15:21] LABS: Chloride* 104 mmol/L (96-114); Potassium* 3.5 mmol/L (3.6-5.1); Sodium* 141 mmol/L (135-149)
[2022-04-08 15:23] LABS: Alkaline Phosphatase* 79 U/L (40-150); Aspartate Amino Transferase* 29 U/L (12-35); Bilirubin Total* 0.2 mg/dL (0.1-1.5); Blood Urea Nitrogen* 14 mg/dL (5-24); Carbon Dioxide* 28 mmol/L (20-32); Creatinine* 0.7 mg/dL (0.5-1.5); Estimated Glomerular Filt Rate 113 ml/min; Total Protein* 6.8 g/dL (6.0-8.3)
[2022-04-08 15:24] LABS: Alanine Aminotransferase* 38 U/L (4-35); Calcium* 9.3 mg/dL (8.4-10.6); Glucose* 85 mg/dL (60-115)
[2022-04-09 09:22] VITALS: BP 117/79; PULSE 109; RESP 16; TEMP 36.1; O2SAT 100
[2022-04-09] MEDS: ALTEPLASE 2 MG INJ IVF (09:52)
[2022-04-09] MEDS: PEMBROLIZUMAB 200 MG, TUBING PRIMARY 1 EACH, In-line 0.2 micron filter set 1 EACH in 0.... 216 MG IVPB (10:42)
[2022-04-09] MEDS: dexAMETHasone 12 MG in 0.9 % SODIUM CHLORIDE 100 ml 100 ML 404.8 MG IVPB (11:19)
[2022-04-09] MEDS: PALONOSETRON 0.25 MG/5 ML inj IV (11:19)
[2022-04-09] MEDS: FOSAPREPITANT 150 MG inj 150 MG in 0.9 % SODIUM CHLORIDE 250 ml 250 ML 510 MG IVPB (11:39)
[2022-04-11 09:41] LABS: Cortisol, Serum 12.6 ug/dL
[2022-04-12 08:24] VITALS: BP 110/70; PULSE 97; RESP 16; TEMP 35.4; O2SAT 100
[2022-04-12] MEDS: PEGFILGRASTIM-JMDB 6 MG/0.6 ML SYRINGE SUBCUT (08:26)
--- NOTE | 2022-04-16 08:27 | PC.NURSE ---
Patient had emailed the [facility] the following note: I'm not sure if I am overreacting or not. 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 It makes me super tired and weak feeling afterwards. And sometimes dizzy. I'm eating and drinking as much as I possibly can without it coming back up. The nausea has been pretty heavy since Tuesday.? Let me know if there is anything I? can do. Valentina When I spoke to Valentina this morning she states that she is feeling much better today. She states that Tuesday and Tuesday she was experiencing these episodes every 30-60 minutes. She thought maybe she was getting a fever but she didn't take her temperature because this felt different then she normally does when she is getting a fever. I explained to her that when her immune system is suppressed it may not mount the same response as normal. I encouraged her to check her temperature if this happens again and to seek immediate care for temperature of 100.5 or greater. Patient states her nausea is also better today and she is able to eat and drink more. I told patient that for future cycles, maybe we can discuss with her provider the possibility of getting fluids when she comes for her Fulphila injection. Patient verbalizes understanding and will call with questions or concerns.
[2022-04-29 14:35] LABS: Basophils Absolute Auto 0.06 K/uL (0.00-0.30); Basophils Percent Auto 0.9 % (0.0-3.0); Eosinophils Absolute Auto 0.03 K/uL (0.00-0.50); Eosinophils Percent Auto 0.5 % (0.0-7.0); Hematocrit 33.1 % (33.0-51.0); Hemoglobin* 10.7 gm/dL (12.0-16.0); Immature Granulocytes Abs Auto 0.06 K/uL (0.00-0.30); Immature Granulocytes Pct Auto 0.9 %; Lymphocytes Percent Auto 11.1 % (20-44); Mean Corpuscular HGB Conc 32 gm/dL (32-36); Mean Corpuscular Hemoglobin 34 pg (26-34); Mean Corpuscular Volume 104 fL (80-100); Neutrophils Percent Auto 76.6 % (42.0-72.0); Platelet Count* 423 K/uL (140-440); Red Blood Count 3.19 m/uL (4.00-5.20); White Blood Count* 6.51 K/uL (4.50-11.00)
[2022-04-29 14:40] LABS: Slide Review Reflex No
[2022-04-29 14:49] LABS: Albumin* 4.4 g/dL (3.3-5.0); Chloride* 105 mmol/L (96-114); Sodium* 142 mmol/L (135-149)
[2022-04-29 14:50] LABS: Potassium* 3.2 mmol/L (3.6-5.1)
[2022-04-29 14:52] LABS: Alanine Aminotransferase* 32 U/L (4-35); Alkaline Phosphatase* 94 U/L (40-150); Aspartate Amino Transferase* 26 U/L (12-35); Bilirubin Total* 0.3 mg/dL (0.1-1.5); Blood Urea Nitrogen* 15 mg/dL (5-24); Carbon Dioxide* 29 mmol/L (20-32); Creatinine* 0.7 mg/dL (0.5-1.5); Estimated Glomerular Filt Rate 113 ml/min; Glucose* 88 mg/dL (60-115); Total Protein* 7.2 g/dL (6.0-8.3)
[2022-04-29 14:53] LABS: Calcium* 9.5 mg/dL (8.4-10.6)
[2022-04-29 15:54] LABS: Thyroid Stimulating Hormone* 0.411 uIU/mL (0.270-4.20)
[2022-04-30 09:00] VITALS: BP 124/83; PULSE 102; RESP 16; TEMP 35.9; O2SAT 98
--- NOTE | 2022-04-30 09:44 | ONC.NURNOTE ---
Patient'S potassium came back lower at 3.2 so patient given handouts today on foods with high potassium and also told she will get potassium with her fluids on Tuesday.
[2022-04-30] MEDS: PALONOSETRON 0.25 MG/5 ML inj IV (09:59)
[2022-04-30] MEDS: dexAMETHasone 12 MG in 0.9 % SODIUM CHLORIDE 100 ml 100 ML 404.8 MG IVPB (10:00)
[2022-04-30] MEDS: 0.9 % SODIUM CHLORIDE 250 ml IV (10:03)
[2022-04-30] MEDS: HEPARIN 500 UNIT/5 ML SYRINGE IVF (10:03)
[2022-04-30] MEDS: SODIUM CHLORIDE 0.9 % (FLUSH) 10 ML SYRINGE IVF (10:03)
[2022-04-30] MEDS: FOSAPREPITANT 150 MG inj 150 MG in 0.9 % SODIUM CHLORIDE 250 ml 250 ML 510 MG IVPB (10:20)
[2022-04-30] MEDS: PEMBROLIZUMAB 200 MG, TUBING PRIMARY 1 EACH, In-line 0.2 micron filter set 1 EACH in 0.... 216 MG IVPB (10:54)
[2022-05-01 22:49] LABS: Cortisol, Serum 12.9 ug/dL
[2022-05-03 09:24] VITALS: BP 103/72; PULSE 107; RESP 16; TEMP 36.8; O2SAT 100
[2022-05-03] MEDS: PEGFILGRASTIM-JMDB 6 MG/0.6 ML SYRINGE SUBCUT (09:28)
[2022-05-03] MEDS: 0.9 % SODIUM CH + KCL 20 mEq/L 1,000 ML 500 ML IV (09:35)
[2022-05-03] MEDS: SODIUM CHLORIDE 0.9 % (FLUSH) 10 ML SYRINGE IVF (12:47)
[2022-05-03] MEDS: HEPARIN 500 UNIT/5 ML SYRINGE IVF (12:47)
[2022-05-20 08:22] LABS: Basophils Absolute Auto 0.02 K/uL (0.00-0.30); Basophils Percent Auto 0.3 % (0.0-3.0); Eosinophils Absolute Auto 0.02 K/uL (0.00-0.50); Eosinophils Percent Auto 0.3 % (0.0-7.0); Hematocrit 33.7 % (33.0-51.0); Hemoglobin* 10.8 gm/dL (12.0-16.0); Immature Granulocytes Abs Auto 0.08 K/uL (0.00-0.30); Immature Granulocytes Pct Auto 1.3 %; Lymphocytes Absolute Auto 1.44 K/uL (0.90-2.90); Lymphocytes Percent Auto 22.9 % (20-44); Mean Corpuscular HGB Conc 32 gm/dL (32-36); Mean Corpuscular Hemoglobin 33 pg (26-34); Mean Corpuscular Volume 102 fL (80-100); Monocytes Percent Auto 14.1 % (0.0-11.0); Neutrophils Absolute Auto 3.85 K/uL (1.7-7.0); Neutrophils Percent Auto 61.1 % (42.0-72.0); Platelet Count* 284 K/uL (140-440); RDW Coefficient of Variation % 13.3 % (11.5-15.5); Red Blood Count 3.29 m/uL (4.00-5.20)
[2022-05-20 08:30] LABS: Slide Review Reflex No
[2022-05-20 08:35] LABS: Albumin* 3.8 g/dL (3.3-5.0); Chloride* 109 mmol/L (96-114); Potassium* 3.8 mmol/L (3.6-5.1); Sodium* 143 mmol/L (135-149)
[2022-05-20 08:37] LABS: Creatinine* 0.7 mg/dL (0.5-1.5); Estimated Glomerular Filt Rate 113 ml/min
[2022-05-20 08:38] LABS: Alanine Aminotransferase* 27 U/L (4-35); Alkaline Phosphatase* 65 U/L (40-150); Aspartate Amino Transferase* 23 U/L (12-35); Bilirubin Total* 0.3 mg/dL (0.1-1.5); Blood Urea Nitrogen* 12 mg/dL (5-24); Carbon Dioxide* 28 mmol/L (20-32); Glucose* 82 mg/dL (60-115); Total Protein* 6.2 g/dL (6.0-8.3)
[2022-05-20] MEDS: PEMBROLIZUMAB 200 MG, TUBING PRIMARY 1 EACH, In-line 0.2 micron filter set 1 EACH in 0.... 216 MG IVPB (09:23)
[2022-05-20] MEDS: dexAMETHasone 12 MG in 0.9 % SODIUM CHLORIDE 100 ml 100 ML 404.8 MG IVPB (09:58)
[2022-05-20] MEDS: PALONOSETRON 0.25 MG/5 ML inj IV (10:00)
[2022-05-20] MEDS: FOSAPREPITANT 150 MG inj 150 MG in 0.9 % SODIUM CHLORIDE 250 ml 250 ML 510 MG IVPB (10:21)
[2022-05-20] MEDS: HEPARIN 500 UNIT/5 ML SYRINGE IVF (11:52)
[2022-05-20] MEDS: SODIUM CHLORIDE 0.9 % (FLUSH) 10 ML SYRINGE IVF (11:52)
[2022-05-21] MEDS: PEGFILGRASTIM-JMDB 6 MG/0.6 ML SYRINGE SUBCUT (13:42)
[2022-05-21 14:00] VITALS: BP 102/68; PULSE 88; RESP 16; TEMP 36.1; O2SAT 97
--- NOTE | 2022-05-21 14:37 | ONC.NURNOTE ---
Very positive and talkative. looked good. declined the need for IVF. or a weight. vs good. She did have a nice talk with Melissa.
[2022-05-21 16:38] LABS: Cortisol, Serum 14.9 ug/dL
--- NOTE | 2022-06-01 12:11 | ONC.NURNOTE ---
Follow up call to patient for an update on her condition. Patient states she was only able to swallow 2 doses of the Acyclovir because they were too difficult to swallow. None the less, she is feeling much better. She only has one small sore left on her tongue and reports that swallowing is much less sore. She is starting to eat solid foods again. She does think that she got somewhat dehydrated though as she has been having intermittent dizzy spells, especially with position changes. This is slowly improving as she introduces more food and fluids into her diet. Her only other report is that her feet are red and burning. It sounds like hand/foot syndrome. The skin is intact and she denies fevers/chills. Discussed using moisturizing lotion such as udder cream or aquaphor. Patient to monitor closely and call if symptoms worsen. Patient also informed that her MRI results are still pending.
== END 2022-06-30 23:59 | disposition home or self-care (01) ==
LOC: CCIC 10:49
PROVIDERS: Internal Medicine Hematology & Oncology; Internal Medicine Medical Oncology; Nurse Practitioner Family; PCP Family Medicine; Referring Provider Family Medicine; Visit Provider Clinical Nurse Specialist
DX: C50.912 Malignant neoplasm of unspecified site of left female breast (principal); Z17.1 Estrogen receptor negative status [ER-]; B00.2 Herpesviral gingivostomatitis and pharyngotonsillitis; T45.1X5A Adverse effect of antineoplastic and immunosuppressive drugs, initial encounter
CPT/HCPCS: 36415; 36591; 77049; 80053; 80076; 82533; 84443; 85025; 87635; 96360; 96361; 96365; 96366; 96372; 96376; 96411; 96413; 96415; 96417; 97802; 99211; 99212; 99213; 99214; 99215; J9000; J9070; A9575; J1100; J1200; J1453; J1642; J2469; J2997; J7030; J7050; J9045; J9267; J9271; Q5108; S0028

== ENCOUNTER 2022-06-14 06:56 | Day surgery (SDC) | payer MEDICAID, SELFPAY ==
[2022-06-14] VITALS (24 sets, daily range): BP systolic 79–98; BP diastolic 49–70; PULSE 61–84; RESP 14–16; TEMP 36.1–36.6; O2SAT 94–100; BMI 22.4
--- NOTE | 2022-06-14 | CRLHL7_ITS ---
For Patients: As a result of the Cures Act, medical imaging exams and procedure reports are released immediately into your electronic medical record. You may view this report before your referring provider. If you have questions, please contact your health care provider. LEFT BREAST SPECIMEN RADIOGRAPH CLINICAL HISTORY: LEFT breast cancer. LEFT axillary lymph node resection. COMPARISON: 06/14/2022. FINDINGS: Two views of the LEFT axillary specimen submitted. The specimen contains the previously biopsied benign lymph node along with the localization wire and biopsy clip. Additional surgical clip is present. IMPRESSION: Specimen contains the biopsied lymph node, biopsy clip and localization wire. ACR not applicable Dictated by Hardy Coyne MD @ 06/14/2022 12:37:35 PM jj/Dictated by: Hardy Coyne MD @ 06/14/2022 12:37:00 PM (Electronically Signed)
[2022-06-14] MEDS: LACTATED RINGERS 1000 ML 1,000 ML 100 ML IV ×2 (07:00→11:34)
--- NOTE | 2022-06-14 07:59 | SUR.PREOP ---
SAME DAY SURGERY LOCAL INJECTION SITE VERIFICATION WAS PERFORMED BY SURGEON/PA AND PATIENT PRIOR TO LOCAL ANESTHETIC BEING INJECTED TO OPERATIVE SITE.
--- NOTE | 2022-06-14 08:00 | CRLHL7_ITS ---
For Patients: As a result of the Century Cures Act, medical imaging exams and procedure reports are released immediately into your electronic medical record. You may view this report before your referring provider. If you have questions, please contact your health care provider. HISTORY: 36-year-old female. Left breast cancer. TECHNIQUE: Following lidocaine injection, 1.0 millicuries [id number] sulfur colloid was injected in the left breast for sentinel lymph node localization. Images were not obtained. Dictated by Troy Jacobo MD @ 06/14/2022 9:23:22 AM (Electronically Signed)
[2022-06-14] MEDS: SODIUM CHLORIDE 0.9 % (FLUSH) 10 ML SYRINGE IVF (08:01)
--- NOTE | 2022-06-14 08:05 | SUR.PREOP ---
U/S HERE FOR PATIENT.
--- NOTE | 2022-06-14 08:15 | CRLHL7_ITS ---
For Patients: As a result of the Cures Act, medical imaging exams and procedure reports are released immediately into your electronic medical record. You may view this report before your referring provider. If you have questions, please contact your health care provider. LEFT AXILLARY LYMPH NODE WIRE LOCALIZATION USING ULTRASOUND GUIDANCE CLINICAL HISTORY: LEFT breast cancer. Biopsy negative LEFT axillary lymph node. Presents for BILATERAL mastectomy and LEFT axillary node resection. LATERALITY: LEFT axilla. LESION: Small LEFT axillary lymph node containing a clip. LOCALIZATION WIRE: [place] hookwire. TECHNIQUE: The localization wire was placed using real-time ultrasound guidance with image documentation. CONSENT and TIME OUT: The procedure, risks, and alternatives were explained to the patient and a consent was signed. [place] Protocol was followed including pre-procedure verification that relevant information/documentation was available, reviewed and properly matched to the patient; consent accurate and complete; and equipment and supplies available. Time Out was conducted just prior to starting procedure to verify the four required elements: patient identity, correct side/site marked (if applicable), procedure, relevant images/results properly labeled and displayed (if applicable). PROCEDURE: The skin was prepped with ChloraPrep and 5 cc of 1% lidocaine was injected for local anesthesia. The localization wire was placed within or near the targeted LEFT axillary lesion using ultrasound guidance. The patient tolerated the procedure well. PROXIMITY OF WIRE TO LESION: The wire is located within the lesion immediately adjacent to the clip. IMPRESSION: Successful LEFT axillary lymph node wire localization. ACR not applicable Dictated by Hardy Coyne MD @ 06/14/2022 10:13:32 AM jj/Dictated by: Hardy Coyne MD @ 06/14/2022 10:13:00 AM (Electronically Signed)
[2022-06-14] MEDS: CEFAZOLIN 2 GM INJ IVP (10:24)
--- NOTE | 2022-06-14 13:47 | PM.GSPRC ---
Operative Note Date of procedure: 06/14/22 Pre-op diagnosis: Left breast invasive ductal carcinoma, triple negative, status post neoadjuvant chemotherapy Post-op diagnosis: Same Type of Procedure: 1. Bilateral mastectomy 2. Biopsy left axillary sentinel lymph node (previously biopsied) with preoperative wire localization 3. Left axillary sentinel lymph node biopsy Procedure Description: After discussing the risks and benefits of the procedure, the patient signed informed consent.? The operative site was marked and the patient was brought to the operating room and placed on the operating table in supine position.? Care was taken to pad the patient's pressure points.?? The patient was then intubated by anesthesia.?? The operative site was then prepped and draped in the usual sterile fashion.? A time-out was then performed. ? 1 hr to incision, I injected radiotracer into the dermis the left breast just above the areola this was massaged in place. 10 min prior to the incision I injected 3 ml isosulfan blue dye into the dermis above the areola. This was massaged for 3 min. Once this was completed, the area was prepped and draped sterilely. A time-out was then completed. We began on the left side. The vertical elliptical incision marked out by Dr. Pino was incised using a scalpel. Subcutaneous flaps were created using cautery. Care was taken to stay in the a vascular plane between the breast tissue in the subcutaneous tissue. Dissection was taken superiorly to the clavicle, medially to the sternum, inferiorly to the superior aspect of the rectus sheath, and laterally to the latissimus. Once the flaps were created, the breast was taken off of the chest wall, taking the pectoralis fascia with. Small bleeding vessels were cauterized. The breast tissue was divided at the axillary fat. The specimen was marked with a stitch at the superior aspect and sent for margins which were negative. Attention was then turned to the sentinel lymph node biopsy. The probe was brought into the field. A strong signal was noted and dissection was taken down into the axillary fat. The probe was used to identify a small node which incidentally was connected to the preoperative localization wire. Just deep to this a small blue node which also had a signal was identified. Both of these nodes were carefully dissected from the surrounding tissue, using small clips to ligate any visible lymphatics or blood vessels. The 1st node did have a signal measuring 370 ex vivo. The 2nd was measured separate and had a signal of 1326 ex vivo. As mention the 2nd node was blue. These were sent for x-ray which did show the biopsy clip within the node. They were then sent for frozen section as sentinel lymph nodes 1 and 2. Frozen section returned negative for metastatic disease. The probe was placed back into the wound bed and further signal was noted which was just slightly greater than 10% of the prior node. A 2nd node was dissected free of the surrounding fat using cautery. This node was noted to be blue and was measured with the probe and sent as sentinel lymph node 3. The probe was placed back into the axilla and there was still a signal which again was just slightly greater than 10% of the hottest node. Carefully, high in the axilla, a 4th node was identified. This was not noted to be blue. It did have a strong signal of 604. This was sent as sentinel lymph node 4. The axilla was examined. Hemostasis was achieved with clips and cautery. The frozen section returned negative for metastatic disease. I then turned my attention to the right side, after changing gloves and instruments. An identical incision was made and dissection was taken down into the subcutaneous tissue creating skin flaps superiorly to the clavicle, medially to the sternum, inferiorly to the superior rectus sheath and laterally to the latissimus. Care was taken to avoid the patient's right chest wall port. The capsule was not entered. The breast tissue was then removed from the pectoralis muscle, taking the pectoralis fascia. Hemostasis was achieved with cautery. A stitch was placed to orient the specimen and it was sent to pathology. At this point I turned the case over to Dr. Pino for reconstruction. For my part of the case instrument sponge and needle counts were correct. The patient tolerated the procedure well. Indications: The patient is a 28-year-old female who was diagnosed with a left breast invasive ductal carcinoma, triple negative. She had undergone biopsy of a left axillary lymph node which was intermediate. This returned negative for metastatic disease. Because of the triple negative nature of the mass, she underwent neoadjuvant chemotherapy. She presents today for bilateral mastectomy and lymph node biopsy. Findings: 1. Grossly negative margins on left breast 2. Preoperative wire localize node removed with clip seen on x-ray and negative for metastatic disease also, coincidentally sentinel lymph node 1. 3. [place] lymph nodes 2. Through 4 negative for metastatic disease on frozen section Anesthesia: GETA Surgeon: Karo Benson MD Estimated blood loss (mL): 25 Specimen: Other Additional Specimen Information: 1. Left breast, suture superior 2. Left axillary sentinel lymph nodes 1 and 2 (number 1 was also the preoperatively biopsied lymph node as evidence by the presence of clip on x-ray) 3. Left axillary sentinel lymph node 3 4. Left axillary sentinel lymph node 4. 5. Right breast, stitch superior Condition: stable Disposition: PACU
[2022-06-14] MEDS: CEFAZOLIN 1 GM inj IVP (14:11)
--- NOTE | 2022-06-14 14:31 | P.PCN_ITS ---
Procedure Note Time Seen by Provider: 14:31 Date Seen: 06/14/22 Date of procedure: 06/14/22 Will [facility] bill your pro fee for this procedure?: No Pre-op diagnosis: 1. Left breast cancer; 2. Bilateral acquired breast absence post mastectomy Post-op diagnosis: same Procedure: PREOPERATIVE DIAGNOSES * Left breast cancer.? * Bilateral acquired breast absence post skin-sparing mastectomies POSTOPERATIVE DIAGNOSES * Left breast cancer.? * Bilateral acquired breast absence, status post skin-sparing mastectomy.? NAME OF PROCEDURE 1. Bilateral immediate prepectoral tissue pocket creaser breast reconstruction with AlloDerm for soft tissue reinforcement. Procedure Description: PREOPERATIVE DIAGNOSES * Left breast cancer.? * Bilateral acquired breast absence post skin-sparing mastectomies POSTOPERATIVE DIAGNOSES * Left breast cancer.? * Bilateral acquired breast absence, status post skin-sparing mastectomy.? NAME OF PROCEDURE 1. Bilateral immediate prepectoral tissue pocket creaser breast reconstruction with AlloDerm for soft tissue reinforcement. DRAINS One 15-English channeled drain to each breast. SECOND MILLER Lissett Beal PA-C. Lissett Beal PA-C was present and scrubbed for the entire procedure and assisted with dissection, retraction, and closure. ?There were no other qualified trainees or other assistants available, and the presence of Lissett Beal PA-C was necessary due to the inability to retract and dissect without an junior administrative assistant. INDICATIONS FOR PROCEDURE The patient is a 36-year-old female diagnosed with left breast cancer. She completed neoadjuvant chemotherapy and?elected to undergo bilateral skin-sparing mastectomies and immediate prepectoral tissue pocket creaser breast reconstruction with AlloDerm. ?A written witnessed informed consent was obtained preoperatively. PROCEDURE The patient was identified and marked in the preoperative holding area. ?She was taken into the operating room and placed supine onto the operating table. ?Sequential compression devices were applied to the lower extremities. ?After successful general anesthesia and endotracheal intubation, the patient was p repared and draped in the usual sterile fashion. ?An intentional pause was performed confirming the patient's identity, the procedure to be performed, the laterality, the patient's allergies, and the administration of the necessary antibiotics by Anesthesia. ?I was called into the operating room when Dr. Benson had completed both mastectomies and with clear margins and negative axillary lymph node biopsy. The mastectomy skin flaps were inspected visually and found to be of even thickness and appeared well perfused. ?It was, therefore, decided to proceed with reconstruction as planned. ?We selected Tam tissue pocket creaser style [id number]. ?The tissue pocket creaser used on the right side has a serial number of [id number]. ?The tissue pocket creaser used on the left side has a serial number of [id number]. ?Both tissue expanders were filled to a volume of 350 cc of saline. ?On the back table, the tissue expanders were prepared and circumferentially wrapped with AlloDerm 16 x 20 cm, [id number], perforated. ?The AlloDerm used on the right side has a lot number of [id number], and the AlloDerm used on the left side has a lot number of [id number]. ?Once both expanders were prepared, they were soaked in half-strength Betadine until they were ready to use. ?I then turned my attention to the chest where hemostasis was confirmed on both sides. ?Both prepectoral pockets were irrigated with half-str ength Betadine, which was soaked for 3 minutes. ?Following this, the 15-English channeled drain was placed on each side and secured to the skin with 2-0 silk. ?The skin was then prepared with Betadine and protected with blue towels. ?I then changed my gloves and inserted on each side the corresponding tissue pocket creaser and AlloDerm. ?The tissue pocket creaser tabs were secured to the chest wall using 2-0 PDS. ?We then proceeded to closing the incision with deep dermal 3-0 Monocryl followed by subcuticular 4-0 Monocryl. ?At the end of the procedure, the final fill volume was maintained at 350 cc as there was no tension on the skin closure. ?The incisions were covered with 1/2 inch Steri-Strips and Dermabond. ?ABD pads were placed on the breasts, and the patient was placed in a surgical bra. ?Biopatch was placed around the drain sites as well as Tegaderm dressings. ?At the end of the procedure, all of the sponge, needle, and instrument counts were correct. ?The patient was awake and sent to the recovery room in satisfactory condition. ?I was present for the entire case. Anesthesia: GETA Surgeon: Rosalina Pino MD Superintendent Horticulture: Lissett Froyum Estimated blood loss (mL): 10 Pathology: none sent Condition: stable Disposition: PACU
--- NOTE | 2022-06-14 15:23 | W.ANESCHARGE ---
Anesthesia Charges Start Date/Time Anesthesia Start Date: 06/14/22 Anesthesia Start Time: 10:12 Stop Date/Time Anesthesia Stop Date: 06/14/22 Anesthesia Stop Time: 15:15 Summary Emergency: No
--- NOTE | 2022-06-14 15:25 | W.PM.NB ---
Nerve Block Nerve Block Time Seen by Provider: 10:25 Date Seen: 06/14/22 Type of block requested by surgeon for post-operative analgesia: intercostal and intercostal add on Side: bilateral Time out performed: Yes Verification of patient name: Yes Verification of date of : Yes Site marking: site marked Name of person performing procedure: Huang Continuous monitoring Was continuous monitoring of O2 sat, B/P, nuclear monitoring technician, recorded every 15 minutes?: Yes Procedure Checklist: sterile prep, needles and gloves Medications given in 5ml increments after negative aspiration: Marcaine %: 0.25 mL: 35 Needle gauge: 20 and Exparel mL: 15 Needle gauge: 20 Patient tolerated procedure well: Yes Block Charges Block Charge (with Pro Fee): Intercostal Nerve Block Use of Ultrasound Machine for Block: Yes- US Guidance/pain block
--- NOTE | 2022-06-14 15:26 | W.ANESCHARGE ---
Anesthesia Charges Start Date/Time Anesthesia Start Date: 06/14/22 Anesthesia Start Time: 10:12 Stop Date/Time Anesthesia Stop Date: 06/14/22 Anesthesia Stop Time: 15:15 Summary Emergency: No
[2022-06-14] MEDS: PHENYLEPHRINE 100 MCG/ML SYRINGE IVP ×2 (15:27→15:37)
[2022-06-14] MEDS: LACTATED RINGERS 1000 ML 1,000 ML 75 ML IV (17:08)
[2022-06-14] MEDS: HYDROCODONE-ACETAMIN 5-325 MG 1 TAB PO ×2 (18:34→22:14)
[2022-06-14] MEDS: CEFAZOLIN 1 GM in 0.9 % SODIUM CHLORIDE Mini-bag 100 ML IVPB (20:10)
--- NOTE | 2022-06-14 23:38 | PC.NURSE ---
End of Shift: Patient pleasant and cooperative. Afebrile. BP in the 80s-90s systolic, MD aware, patient denies any lightheadedness or dizziness. Dressing to bilateral chest C/D/I. MICHAEL drains x2 patent with bloody output. Rating pain up to 4-5/10 with activity and PRN [place] given x2. Tolerating regular diet with no nausea. Up to bathroom with SBA and voided x1.
[2022-06-15] MEDS: HYDROCODONE-ACETAMIN 5-325 MG 1 TAB PO ×2 (02:18→06:38)
[2022-06-15 02:36] VITALS: BP 93/60; PULSE 67; RESP 14; TEMP 36.5; O2SAT 99
[2022-06-15] MEDS: CEFAZOLIN 1 GM in 0.9 % SODIUM CHLORIDE Mini-bag 100 ML IVPB ×2 (04:26→11:50)
[2022-06-15] MEDS: LACTATED RINGERS 1000 ML 1,000 ML 75 ML IV (06:30)
--- NOTE | 2022-06-15 06:44 | PC.NURSE ---
Pt is alert and oriented x3, pleasant and cooperative. Afebrile, BP?s in the 90?s systolic, MD aware. Pt denies N/V and dizziness or lightheadedness. Bilateral chest dressings CDI. MICHAEL drains x2 draining bloody output. Reports 5/10 anterior chest pain (surgery area), pain managed with PRN medication. Pt denies N/V and SOB. Pt is up with SBA. ?
[2022-06-15 07:00] VITALS: BP 91/43; PULSE 66; RESP 16; TEMP 36.9; O2SAT 98
[2022-06-15 07:33] LABS: Basophils Absolute Auto 0.03 K/uL (0.00-0.30); Basophils Percent Auto 0.3 % (0.0-3.0); Hematocrit 31.1 % (33.0-51.0); Immature Granulocytes Abs Auto 0.04 K/uL (0.00-0.30); Immature Granulocytes Pct Auto 0.4 %; Lymphocytes Percent Auto 8.7 % (20-44); Mean Corpuscular HGB Conc 32 gm/dL (32-36); Mean Corpuscular Hemoglobin 32 pg (26-34); Mean Corpuscular Volume 98 fL (80-100); Monocytes Percent Auto 9.1 % (0.0-11.0); Neutrophils Percent Auto 81.5 % (42.0-72.0); Platelet Count* 208 K/uL (140-440); Red Blood Count 3.17 m/uL (4.00-5.20); White Blood Count* 9.73 K/uL (4.50-11.00)
[2022-06-15 07:37] LABS: Slide Review Reflex No
[2022-06-15 07:47] LABS: Albumin* 2.9 g/dL (3.3-5.0); Chloride* 109 mmol/L (96-114); Sodium* 138 mmol/L (135-149)
[2022-06-15 07:48] LABS: Potassium* 3.9 mmol/L (3.6-5.1)
[2022-06-15 07:50] LABS: Alkaline Phosphatase* 57 U/L (40-150); Aspartate Amino Transferase* 45 U/L (12-35); Bilirubin Direct* 0.3 mg/dL (0.0-0.5); Bilirubin Total* 0.4 mg/dL (0.1-1.5); Blood Urea Nitrogen* 12 mg/dL (5-24); Carbon Dioxide* 26 mmol/L (20-32); Creatinine* 0.6 mg/dL (0.5-1.5); Est. Creatinine Clearance* 109.78; Estimated Glomerular Filt Rate 118 ml/min; Glucose* 114 mg/dL (60-115); Lipase* 52 U/L (23-300); Total Protein* 5.3 g/dL (6.0-8.3)
[2022-06-15 07:51] LABS: Alanine Aminotransferase* 34 U/L (4-35); Calcium* 8.6 mg/dL (8.4-10.6)
--- NOTE | 2022-06-15 08:18 | P.DS_ITS ---
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 She did well overnight and was deemed safe for discharge home on postop day 1. Status at Discharge Functional status at discharge: independent ambulation Time Spent with Patient Time attestation: Total time spent providing and/or coordinating discharge services: Exam Narrative: Exam Narrative: general: alert, oriented, no acute distress CV: Regular rate pulmonary:Breathing nonlabored on room air Chest: Incisions are clean and dry. No erythema. No bruising on skin flaps. Very slight fullness in the left lateral chest wall. Serosanguineous drainage out of both drains with some iodine tinge particularly on the left. Const: Vital Signs, click to edit/add: Vital Signs - 24 hr 06/14/22 15:10 06/14/22 15:15 06/14/22 15:20 Temperature 97.8 F Pulse Rate 76 61 65 Pulse Rate [Pulse Oximeter] Respiratory Rate 16 16 16 Blood Pressure 79/49 L 96/69 89/54 L Blood Pressure [Le ft Arm] Pulse Oximetry 95 94 97 Oxygen Delivery Me thod Room Air Room Air Room Air 06/14/22 15:25 06/14/22 15:30 06/14/22 15:35 Temperature 97.6 F Pulse Rate 67 64 69 Pulse Rate [Pulse Oximeter] Respiratory Rate 16 16 16 Blood Pressure 81/54 L 95/63 81/57 L Blood Pressure [Le ft Arm] Pulse Oximetry 96 95 94 Oxygen Delivery Me thod Room Air Room Air Room Air 06/14/22 15:40 06/14/22 15:45 06/14/22 15:50 Temperature Pulse Rate 75 66 75 Pulse Rate [Pulse Oximeter] Respiratory Rate 16 16 16 Blood Pressure 87/61 L 82/51 L 89/61 L Blood Pressure [Le ft Arm] Pulse Oximetry 95 95 97 Oxygen Delivery Me thod Room Air Room Air Room Air 06/14/22 15:55 06/14/22 16:00 06/14/22 16:15 Temperature 97.1 F L 97.0 F L Pulse Rate 64 61 70 Pulse Rate [Pulse Oximeter] Respiratory Rate 16 16 16 Blood Pressure 85/60 L 94/65 Blood Pressure [Le ft Arm] 89/57 L Pulse Oximetry 97 96 Oxygen Delivery Me thod Room Air Room Air Room Air 06/14/22 16:42 06/14/22 16:45 06/14/22 17:00 Temperature Pulse Rate Pulse Rate [Pulse Oximeter] 68 70 71 Respiratory Rate 16 16 16 Blood Pressure Blood Pressure [Le ft Arm] 87/62 L 89/66 L 88/64 L Pulse Oximetry 97 98 97 Oxygen Delivery Me thod Room Air Room Air Room Air 06/14/22 17:15 06/14/22 17:45 06/14/22 18:15 Temperature 97.1 F L Pulse Rate Pulse Rate [Pulse Oximeter] 70 74 78 Respiratory Rate 16 16 16 Blood Pressure Blood Pressure [Le ft Arm] 97/70 92/63 94/65 Pulse Oximetry 98 97 100 Oxygen Delivery Me thod Room Air Room Air Room Air 06/14/22 19:15 06/14/22 20:15 06/14/22 21:15 Temperature 97.5 F L Pulse Rate Pulse Rate [Pulse Oximeter] 70 78 84 Respiratory Rate 16 16 16 Blood Pressure Blood Pressure [Le ft Arm] 91/56 L 89/61 L 89/57 L Pulse Oximetry 99 100 99 Oxygen Delivery Me thod Room Air Room Air Room Air 06/14/22 22:15 06/14/22 23:00 06/14/22 23:00 Temperature 97.0 F L 97.5 F L Pulse Rate Pulse Rate [Pulse Oximeter] 79 73 Respiratory Rate 16 14 Blood Pressure Blood Pressure [Le ft Arm] 96/61 91/61 Pulse Oximetry 100 99 99 Oxygen Delivery Mt thod Room Air Room Air 06/15/22 02:36 Temperature 97.7 F Pulse Rate Pulse Rate [Pulse Oximeter] 67 Respiratory Rate 14 Blood Pressure Blood Pressure [Le ft Arm] 93/60 Pulse Oximetry 99 Oxygen Delivery Me thod Room Air DS: Data Data Completed and Pending Labs on day of discharge: Labs from last 24 hours 06/15/22 06/15/22 07:21 07:21 WBC 9.73 RBC 3.17 L Hgb 10.0 L Hct 31.1 L MCV 98 MCH 32 MCHC 32 RDW Coeff of Claire 13.0 Plt Count 208 Neut % (Auto) 81.5 H Lymph % (Auto) 8.7 L Preston % (Auto) 9.1 Eos % (Auto) 0.0 Baso % (Auto) 0.3 Neut # (Auto) 7.90 H Lymph # (Auto) 0.80 L Preston # (Auto) 0.90 Eos # (Auto) 0.00 Baso # (Auto) 0.03 Sodium 138 Potassium 3.9 Chloride 109 Carbon Dioxide 26 BUN 12 Creatinine 0.6 Estimated Creat Clear 109.78 Estimated GFR 118 Glucose 114 Calcium 8.6 Total Bilirubin 0.4 Direct Bilirubin 0.3 AST 45 H ALT 34 Alkaline Phosphatase 57 Total Protein 5.3 L Albumin 2.9 L Lipase 52 Discharge Plan Discharge Disposition: Home, Self-Care Date of Admission: 06/14/22 06:56 Attending Provider on Discharge: Karo Benson Primary Care Provider: Hardy Vital Condition: Stable Anticipated Discharge Date/Time: 06/15/22 10:00 Discharge Medications: New hydrocodone-acetaminophen 5-325 mg Tablet 1 - 2 tab PO Q6H PRN (Reason: Pain) Qty: 30 0RF fluconazole [Diflucan] 150 mg tablet 150 mg PO Q3D Qty: 2 0RF Rx Instructions: may repeat second dose 72 hrs after first dose if symptoms persist sulfamethoxazole-trimethoprim [Bactrim] 400-80 mg tablet 1 tab PO BID Qty: 14 1RF Rx Instructions: Take one tab daily until all surgical drains are removed. Continued cetirizine 10 mg tablet 10 mg PO DAILY ibuprofen 200 mg tablet 200 mg PO Q6H PRN acetaminophen 325 mg capsule 325 mg PO Q6H PRN ondansetron 8 mg tablet,disintegrating 8 mg PO Q8H PRN (Reason: nausea) Qty: 30 0RF Rx Instructions: For chemo related nausea not controlled with compazine. May use starting day 2 after chemo. Magic Mouthwash (Lidocaine/Benadryl/Maalox) 120 mL suspension 5 - 10 ml PO QID PRN (Reason: oropharyngeal herpetic lesions, oral pain) Qty: 240 0RF Rx Instructions: Lidocaine Viscous 2 % mucosal solution 40 mL; Maalox 200 mg-200 mg-20 mg/5 mL oral suspension 40 mL; Benadryl 12.5 mg/5 mL oral elixir 40 mL; Per 120 mL SWISH, Hold, SPIT. or swallow if throat pain. MAY COMPOUND IF FIRST PRODUCT IS NOT AVAILABLE. lidocaine-prilocaine 2.5-2.5 % cream 1 applic topical DAILY PRN (Reason: port access) senna 8.6 mg capsule 8.6 mg PO DAILY clindamycin phosphate 1 % gel 1 applic topical BID PRN Rx Instructions: Apply a thin film to the cleansed affected area. Massage gently into affected areas. calcium carbonate 500 mg calcium (1,250 mg) tablet,chewable 500 mg PO Q4-6H PRN albuterol sulfate 90 mcg/actuation HFA aerosol inhaler 2 puff inhalation Q6H PRN (Reason: shortness of breath or wheezing) Qty: 6.7 0RF prochlorperazine maleate 10 mg tablet 10 mg PO QID PRN (Reason: nausea) Qty: 30 2RF Held lorazepam 0.5 mg tablet 0.5 mg PO Q4H PRN (Reason: nausea) Qty: 25 0RF Hold Instructions: Resume on 06/21/22. Do not take at the same time as prescribed pain medications Rx Instructions: chemotherapy related nausea if other antinausea mediations are ineffective, or for inability to sleep evening after chemotherapy. Discharge Orders: Discharge Order (Routine); Ordered 06/15/22 Ordered By: Karo Benson Patient Education: Sulfamethoxazole/Trimethoprim (By mouth), Hydrocodone/Acetaminophen (By mouth), Fluconazole (By mouth) Additional Instructions: Wound care: Follow Dr. Pino's instruction sheet on wound care. Empty and record drain output three times daily. Pain control: You were prescribed a pain medication. This medication contains acetaminophen (T ylenol). If you are taking your prescribed pain pills 4 times daily, do not take additional acetaminophen. As your pain improves, you can try taking acetaminophen instead of the prescribed pain pill. It is ok to take Ibuprofen or Naproxen (per directions on packaging). This medication helps with inflammation and swelling. Take an [id number] stool softener while you are taking prescribed pain medications to help alleviate constipation. I recommend Senna and/or Colace. Take as directed on package. If you have not had a bowel movement in 3 days, try taking Miralax as directed on the package. All of these are available over the counter. Follow-up Follow up with Dr. Benson in 2 weeks Please call if you are experiencing severe pain, nausea, vomiting, difficulty urinating, fever or have not had bowel movement in 4 days after surgery. Activity Level: No strenuous activity Activity Detail: No lifting more than 20 lb for 4 weeks. Do not raise arms overhead for 4 weeks. Discharge Diet: Regular Follow Up Appointments: Rosalina Pino MD [Staff Physician] - (Patient should already have appointment scheduled for next week) Karo Benson MD [Staff Physician] - Forms: [employer] Info Instructions
[2022-06-15 11:06] VITALS: BP 94/65; PULSE 70; RESP 16; TEMP 36.9
--- NOTE | 2022-06-15 14:42 | PC.NURSE ---
shift note: vss stable. pt medicated with norco 2 tabs prior to dc for chest wall tightness/achiness. LS clr. pt using IS indept. pt up sba assist with steady gait. Dc'd rt wrist IV intact. verbal cueing while pt's mother performed RENETTA stripping and empty. supplies for renetta, drsg for chest and extra teds sent with pt at dc. reviewed dc instructions and copies sent with pt at dc. Belonings reviewed and sent with pt at dc.
== END 2022-06-15 12:45 | disposition home or self-care (01) ==
LOC: MEDSURG 06-15 08:00 → SS 06-15 12:16 → MEDSURG 06-15 12:17
PROVIDERS: Plastic Surgery; PCP Family Medicine; Visit Provider Surgery
PROC: (CPT 19303; principal; 2022-06-14 09:15)
PROC: (CPT 19303; 2022-06-14 09:15)
DX: C50.912 Malignant neoplasm of unspecified site of left female breast (principal)
CPT/HCPCS: 19303; 19357; 38525; 00400; 10035; 36415; 38792; 64420; 76942; 80048; 80076; 83690; 85025; 88307; A9270; A9541; C1769; C1789; C9290; J0330; J0690; J1100; J1170; J2250; J2370; J2405; J2704; J3010; J3490; J7120

== ENCOUNTER 2022-07-12 13:01 | Outpatient (CLI) | payer MEDICAID, SELFPAY | END 2022-07-12 13:02 | disposition home or self-care (01) | LOC: RAD 13:02 | PROVIDERS: PCP Family Medicine; Visit Provider Physician Assistant | DX: C50.912 Malignant neoplasm of unspecified site of left female breast (principal); Z92.21 Personal history of antineoplastic chemotherapy | CPT/HCPCS: 93306 ==

== ENCOUNTER 2022-08-12 08:45 | Outpatient (CLI) | payer MEDICAID, SELFPAY | END 2022-08-12 08:46 | disposition home or self-care (01) | LOC: NFLDREF 08:46 | PROVIDERS: PCP Family Medicine; Visit Provider Physician Assistant | DX: Z01.419 Encounter for gynecological examination (general) (routine) without abnormal findings (principal); Z13.6 Encounter for screening for cardiovascular disorders | CPT/HCPCS: 80061 ==

== ENCOUNTER 2022-12-13 08:30 | Outpatient (RCR) | payer MEDICAID, SELFPAY ==
--- NOTE | 2022-07-01 09:44 | ONC.NURNOTE ---
Insurance denies patients keytruda infusions. Stiff Leg Derrick Operator notified provider to provide clear rationale for infusions so that appeal can be started.
--- NOTE | 2022-07-05 13:49 | URNOTE ---
Received request for prior auth for Pembrolizumab ([id number]). This has been approved 200mg every 21 days x 8 cycles 07/01/22-12/15/2022
[2022-07-07 12:51] VITALS: BP 114/76; PULSE 106; RESP 16; TEMP 36.1; O2SAT 99
[2022-07-07 13:16] LABS: Basophils Absolute Auto 0.01 K/uL (0.00-0.30); Basophils Percent Auto 0.1 % (0.0-3.0); Eosinophils Absolute Auto 0.25 K/uL (0.00-0.50); Eosinophils Percent Auto 3.6 % (0.0-7.0); Hematocrit 35.8 % (33.0-51.0); Hemoglobin* 11.5 gm/dL (12.0-16.0); Immature Granulocytes Abs Auto 0.01 K/uL (0.00-0.30); Immature Granulocytes Pct Auto 0.1 %; Lymphocytes Percent Auto 15.1 % (20-44); Mean Corpuscular HGB Conc 32 gm/dL (32-36); Mean Corpuscular Hemoglobin 30 pg (26-34); Mean Corpuscular Volume 94 fL (80-100); Monocytes Percent Auto 8.9 % (0.0-11.0); Neutrophils Percent Auto 72.2 % (42.0-72.0); Platelet Count* 256 K/uL (140-440); RDW Coefficient of Variation % 12.3 % (11.5-15.5); Red Blood Count 3.82 m/uL (4.00-5.20); White Blood Count* 6.95 K/uL (4.50-11.00)
[2022-07-07 13:31] LABS: Chloride* 104 mmol/L (96-114); Potassium* 3.7 mmol/L (3.6-5.1); Sodium* 139 mmol/L (135-149)
[2022-07-07 13:33] LABS: Aspartate Amino Transferase* 32 U/L (12-35); Bilirubin Total* 0.6 mg/dL (0.1-1.5); Carbon Dioxide* 27 mmol/L (20-32); Creatinine* 0.8 mg/dL (0.5-1.5); Estimated Glomerular Filt Rate 97 ml/min; Total Protein* 6.7 g/dL (6.0-8.3)
[2022-07-07 13:34] LABS: Alanine Aminotransferase* 33 U/L (4-35); Alkaline Phosphatase* 60 U/L (40-150); Blood Urea Nitrogen* 8 mg/dL (5-24); Calcium* 9.6 mg/dL (8.4-10.6); Glucose* 141 mg/dL (60-115)
[2022-07-07 14:00] LABS: Slide Review Reflex No
[2022-07-07] MEDS: PEMBROLIZUMAB 200 MG, TUBING PRIMARY 1 EACH, In-line 0.2 micron filter set 1 EACH in 0.... 216 MG IVPB (14:23)
[2022-07-07 14:24] LABS: Thyroid Stimulating Hormone* 0.874 uIU/mL (0.270-4.20)
[2022-07-07 14:57] VITALS: BP 117/76; PULSE 99; RESP 18; TEMP 36.5; O2SAT 100
[2022-07-07] MEDS: diphenhydrAMINE 25 MG CAPSULE PO (15:22)
[2022-07-07] MEDS: HYDROCORTISONE SOD SUCCINATE 50 MG/ML inj 100 MG IVP (15:52)
[2022-07-07 16:25] VITALS: BP 116/74; PULSE 80; RESP 14; TEMP 36.1; O2SAT 100
--- NOTE | 2022-07-07 16:32 | ONC.NURNOTE ---
Addendum entered by Beatriz Chu RN 07/08/22 14:39: Slps spoke with pt today and pt states she feels fine today, no concerns. Will update Tana Gaspar APRN. Original Note: episode of feeling flushed from chest down after Keytruda. Tana Fajardo APRN aware and see her note. she did see pt. benadryl 25mg po given with some relief. solu cortef 100 mg given IV. vs rechecked. pt feeling better and discharged home with father at 1630.
[2022-07-10 00:41] LABS: Cortisol, Serum 8.5 ug/dL
[2022-07-29 09:41] LABS: Basophils Percent Auto 0.5 % (0.0-3.0); Eosinophils Percent Auto 3.7 % (0.0-7.0); Hematocrit 37.7 % (33.0-51.0); Hemoglobin* 12.4 gm/dL (12.0-16.0); Lymphocytes Percent Auto 18.3 % (20-44); Mean Corpuscular HGB Conc 33 gm/dL (32-36); Mean Corpuscular Hemoglobin 30 pg (26-34); Mean Corpuscular Volume 90 fL (80-100); Monocytes Percent Auto 10.5 % (0.0-11.0); Platelet Count* 264 K/uL (140-440); RDW Coefficient of Variation % 12.1 % (11.5-15.5); Red Blood Count 4.18 m/uL (4.00-5.20); White Blood Count* 4.38 K/uL (4.50-11.00)
[2022-07-29 09:44] LABS: Slide Review Reflex No
[2022-07-29 10:03] LABS: Albumin* 4.3 g/dL (3.3-5.0); Chloride* 107 mmol/L (96-114)
[2022-07-29 10:04] LABS: Potassium* 3.5 mmol/L (3.6-5.1); Sodium* 139 mmol/L (135-149)
[2022-07-29 10:06] LABS: Bilirubin Total* 0.5 mg/dL (0.1-1.5); Carbon Dioxide* 24 mmol/L (20-32); Creatinine* 0.7 mg/dL (0.5-1.5); Estimated Glomerular Filt Rate 113 ml/min; Total Protein* 6.7 g/dL (6.0-8.3)
[2022-07-29 10:07] LABS: Alanine Aminotransferase* 28 U/L (4-35); Alkaline Phosphatase* 58 U/L (40-150); Aspartate Amino Transferase* 25 U/L (12-35); Blood Urea Nitrogen* 7 mg/dL (5-24); Calcium* 9.6 mg/dL (8.4-10.6); Glucose* 98 mg/dL (60-115)
--- NOTE | 2022-07-29 12:14 | ONC.NURNOTE ---
Pt here for labs and Keytruda. Pt received Keytruda on 07/07/22 and during that infusion pt she states she felt chest tightness when there were 10 min remaining of the infusion. At that time she went to the bathroom and noticed waist down she was red and hot with a burning sensation. Tana was notified. Pt was given solucortef and benadryl prior to discharge. 07/08/22- pt felt normal and redness had subsided. Beatriz CEDENO called pt this day to check on her. 07/09/22-pt noticed pressure points on both feet were tender/blistered, this led to skin peeling of her bilateral feet thoughout the week and little toe of right foot was dry with cracked skin. 07/10/22- pt noticed a pimply, itchy rash on forearms, legs, abd- rash improved after 3 days of pt applying aquaphor to rash. Pt currently has small scabs on forearms/legs from the rash. Pt also started having diarrhea on 07/10/22, up to 6 loose stools that day. Stools have now decreased approx 1 loose stool per day. Pt states she normally does not have a bowel movement every day. Unfortunately, pt did not call [facility] to let staff know she was experiencing the peeling skin, rash, and diarrhea until she presented today for treatment. Discussed symptoms with Betsy WarrenDenver, it was recommended to hold treatment today so that pt can be evaluated by oncologist next week. Pt verbalized understanding of plan of care.
[2022-07-30 21:29] LABS: Cortisol, Serum 7.8 ug/dL
[2022-08-05] MEDS: diphenhydrAMINE 25 MG in 0.9 % SODIUM CHLORIDE 100 ml 100 ML 402 MG IVPB (12:18)
[2022-08-05 12:23] LABS: Basophils Percent Auto 0.2 % (0.0-3.0); Eosinophils Percent Auto 3.6 % (0.0-7.0); Hematocrit 39.6 % (33.0-51.0); Hemoglobin* 12.9 gm/dL (12.0-16.0); Immature Granulocytes Pct Auto 0.7 %; Lymphocytes Percent Auto 22.9 % (20-44); Mean Corpuscular HGB Conc 33 gm/dL (32-36); Mean Corpuscular Hemoglobin 29 pg (26-34); Mean Corpuscular Volume 90 fL (80-100); Monocytes Percent Auto 7.8 % (0.0-11.0); Neutrophils Percent Auto 64.8 % (42.0-72.0); Platelet Count* 254 K/uL (140-440); Red Blood Count 4.41 m/uL (4.00-5.20); White Blood Count* 4.46 K/uL (4.50-11.00)
[2022-08-05 12:29] LABS: Slide Review Reflex No
[2022-08-05 12:35] LABS: Albumin* 4.1 g/dL (3.3-5.0); Chloride* 105 mmol/L (96-114)
[2022-08-05 12:36] LABS: Potassium* 3.5 mmol/L (3.6-5.1); Sodium* 140 mmol/L (135-149)
[2022-08-05 12:38] LABS: Alanine Aminotransferase* 26 U/L (4-35); Alkaline Phosphatase* 56 U/L (40-150); Aspartate Amino Transferase* 28 U/L (12-35); Bilirubin Total* 0.3 mg/dL (0.1-1.5); Blood Urea Nitrogen* 10 mg/dL (5-24); Carbon Dioxide* 28 mmol/L (20-32); Creatinine* 0.7 mg/dL (0.5-1.5); Estimated Glomerular Filt Rate 113 ml/min; Total Protein* 6.7 g/dL (6.0-8.3)
--- NOTE | 2022-08-05 12:38 | ONC.NURNOTE ---
Accompanied patient to her oncology visit today. Stressed the importance of reporting side effects as we need to rule out immune mediated responses to her Pembrolizumab. Patient verbalizes understanding. To note, copied from Dr. Boles note: In the event that she has 2 or more loose stools in 24 hours she will contact the clinic so that we can follow up on her symptoms and assess severity.? If severity increases past that then would need to obtain GI pathogen panel and a CT imaging of the abdomen pelvis to assess for infectious causes versus ICI toxicity.??
[2022-08-05 12:39] LABS: Calcium* 9.6 mg/dL (8.4-10.6); Glucose* 115 mg/dL (60-115)
[2022-08-05] MEDS: PEMBROLIZUMAB 200 MG, TUBING PRIMARY 1 EACH, In-line 0.2 micron filter set 1 EACH in 0.... 216 MG IVPB (12:41)
[2022-08-26 10:05] VITALS: BP 104/70; PULSE 92; RESP 16; TEMP 36.1; O2SAT 97
[2022-08-26 10:09] LABS: Basophils Absolute Auto 0.02 K/uL (0.00-0.30); Basophils Percent Auto 0.4 % (0.0-3.0); Eosinophils Absolute Auto 0.18 K/uL (0.00-0.50); Eosinophils Percent Auto 3.3 % (0.0-7.0); Hematocrit 41.2 % (33.0-51.0); Hemoglobin* 13.5 gm/dL (12.0-16.0); Lymphocytes Absolute Auto 1.21 K/uL (0.90-2.90); Lymphocytes Percent Auto 22.2 % (20-44); Mean Corpuscular HGB Conc 33 gm/dL (32-36); Mean Corpuscular Hemoglobin 29 pg (26-34); Mean Corpuscular Volume 89 fL (80-100); Monocytes Percent Auto 10.1 % (0.0-11.0); Neutrophils Absolute Auto 3.48 K/uL (1.7-7.0); Platelet Count* 247 K/uL (140-440); RDW Coefficient of Variation % 11.8 % (11.5-15.5); Red Blood Count 4.65 m/uL (4.00-5.20); White Blood Count* 5.44 K/uL (4.50-11.00)
[2022-08-26 10:10] LABS: Slide Review Reflex No
[2022-08-26 10:21] LABS: Albumin* 4.2 g/dL (3.3-5.0); Chloride* 105 mmol/L (96-114); Potassium* 3.7 mmol/L (3.6-5.1); Sodium* 139 mmol/L (135-149)
[2022-08-26 10:23] LABS: Creatinine* 0.7 mg/dL (0.5-1.5); Estimated Glomerular Filt Rate 113 ml/min
[2022-08-26 10:24] LABS: Alanine Aminotransferase* 28 U/L (4-35); Alkaline Phosphatase* 69 U/L (40-150); Aspartate Amino Transferase* 24 U/L (12-35); Bilirubin Total* 0.3 mg/dL (0.1-1.5); Blood Urea Nitrogen* 19 mg/dL (5-24); Carbon Dioxide* 27 mmol/L (20-32); Glucose* 76 mg/dL (60-115)
[2022-08-26 10:25] LABS: Calcium* 9.3 mg/dL (8.4-10.6)
[2022-08-26] MEDS: diphenhydrAMINE 25 MG in 0.9 % SODIUM CHLORIDE 100 ml 100 ML 412 MG IVPB (11:54)
[2022-08-26] MEDS: PEMBROLIZUMAB 200 MG, TUBING PRIMARY 1 EACH, In-line 0.2 micron filter set 1 EACH in 0.... 216 MG IVPB (12:15)
[2022-08-27 16:28] LABS: Cortisol, Serum 19.5 ug/dL
[2022-09-20 09:04] LABS: Basophils Absolute Auto 0.01 K/uL (0.00-0.30); Basophils Percent Auto 0.2 % (0.0-3.0); Eosinophils Absolute Auto 0.15 K/uL (0.00-0.50); Eosinophils Percent Auto 2.6 % (0.0-7.0); Hematocrit 44.9 % (33.0-51.0); Hemoglobin* 14.6 gm/dL (12.0-16.0); Lymphocytes Absolute Auto 1.22 K/uL (0.90-2.90); Lymphocytes Percent Auto 21.4 % (20-44); Mean Corpuscular HGB Conc 33 gm/dL (32-36); Mean Corpuscular Hemoglobin 28 pg (26-34); Mean Corpuscular Volume 86 fL (80-100); Monocytes Percent Auto 8.4 % (0.0-11.0); Neutrophils Absolute Auto 3.83 K/uL (1.7-7.0); Neutrophils Percent Auto 67.4 % (42.0-72.0); Platelet Count* 263 K/uL (140-440); RDW Coefficient of Variation % 12.3 % (11.5-15.5); Red Blood Count 5.21 m/uL (4.00-5.20); White Blood Count* 5.69 K/uL (4.50-11.00)
[2022-09-20 09:07] LABS: Slide Review Reflex No
[2022-09-20 09:16] LABS: Chloride* 106 mmol/L (96-114)
[2022-09-20 09:17] LABS: Albumin* 4.4 g/dL (3.3-5.0); Potassium* 3.8 mmol/L (3.6-5.1); Sodium* 139 mmol/L (135-149)
[2022-09-20 09:19] LABS: Creatinine* 0.7 mg/dL (0.5-1.5); Estimated Glomerular Filt Rate 113 ml/min
[2022-09-20 09:20] LABS: Alanine Aminotransferase* 22 U/L (4-35); Alkaline Phosphatase* 75 U/L (40-150); Aspartate Amino Transferase* 25 U/L (12-35); Bilirubin Total* 0.5 mg/dL (0.1-1.5); Blood Urea Nitrogen* 11 mg/dL (5-24); Carbon Dioxide* 29 mmol/L (20-32); Total Protein* 7.2 g/dL (6.0-8.3)
[2022-09-20 09:21] LABS: Calcium* 9.5 mg/dL (8.4-10.6); Glucose* 116 mg/dL (60-115)
[2022-09-20] MEDS: diphenhydrAMINE 25 MG in 0.9 % SODIUM CHLORIDE 100 ml 100 ML 402 MG IVPB (10:37)
[2022-09-20] MEDS: PEMBROLIZUMAB 200 MG, TUBING PRIMARY 1 EACH, In-line 0.2 micron filter set 1 EACH in 0.... 216 MG IVPB (10:57)
[2022-09-22 06:17] LABS: Cortisol, Serum 19.9 ug/dL
[2022-10-11 09:20] VITALS: BP 107/73; PULSE 98; RESP 16; TEMP 36.4; O2SAT 97
[2022-10-11 09:42] LABS: Basophils Absolute Auto 0.01 K/uL (0.00-0.30); Basophils Percent Auto 0.2 % (0.0-3.0); Eosinophils Absolute Auto 0.11 K/uL (0.00-0.50); Eosinophils Percent Auto 2.3 % (0.0-7.0); Hematocrit 41.2 % (33.0-51.0); Hemoglobin* 13.7 gm/dL (12.0-16.0); Lymphocytes Absolute Auto 1.09 K/uL (0.90-2.90); Lymphocytes Percent Auto 23.2 % (20-44); Mean Corpuscular HGB Conc 33 gm/dL (32-36); Mean Corpuscular Hemoglobin 28 pg (26-34); Mean Corpuscular Volume 85 fL (80-100); Monocytes Percent Auto 8.5 % (0.0-11.0); Neutrophils Absolute Auto 3.09 K/uL (1.7-7.0); Neutrophils Percent Auto 65.8 % (42.0-72.0); Platelet Count* 219 K/uL (140-440); RDW Coefficient of Variation % 12.8 % (11.5-15.5); Red Blood Count 4.85 m/uL (4.00-5.20)
[2022-10-11 09:50] LABS: Albumin* 4.4 g/dL (3.3-5.0); Chloride* 103 mmol/L (96-114); Potassium* 3.8 mmol/L (3.6-5.1); Slide Review Reflex No; Sodium* 139 mmol/L (135-149)
[2022-10-11 09:52] LABS: Creatinine* 0.7 mg/dL (0.5-1.5); Estimated Glomerular Filt Rate 113 ml/min
[2022-10-11 09:53] LABS: Alanine Aminotransferase* 19 U/L (4-35); Alkaline Phosphatase* 73 U/L (40-150); Aspartate Amino Transferase* 21 U/L (12-35); Blood Urea Nitrogen* 14 mg/dL (5-24); Calcium* 9.6 mg/dL (8.4-10.6); Carbon Dioxide* 25 mmol/L (20-32); Glucose* 101 mg/dL (60-115); Total Protein* 6.9 g/dL (6.0-8.3)
[2022-10-11] MEDS: diphenhydrAMINE 25 MG in 0.9 % SODIUM CHLORIDE 100 ml 100 ML 402 MG IVPB (11:06)
[2022-10-11] MEDS: PEMBROLIZUMAB 200 MG, TUBING PRIMARY 1 EACH, In-line 0.2 micron filter set 1 EACH in 0.... 216 MG IVPB (11:27)
[2022-10-12 21:15] LABS: Cortisol, Serum 11.7 ug/dL
[2022-11-01 10:45] LABS: Basophils Percent Auto 0.5 % (0.0-3.0); Hematocrit 39.4 % (33.0-51.0); Hemoglobin* 13.1 gm/dL (12.0-16.0); Lymphocytes Percent Auto 28.9 % (20-44); Mean Corpuscular HGB Conc 33 gm/dL (32-36); Mean Corpuscular Hemoglobin 29 pg (26-34); Mean Corpuscular Volume 86 fL (80-100); Monocytes Percent Auto 8.8 % (0.0-11.0); Neutrophils Percent Auto 58.8 % (42.0-72.0); Platelet Count* 219 K/uL (140-440); RDW Coefficient of Variation % 13.7 % (11.5-15.5); Red Blood Count 4.59 m/uL (4.00-5.20); White Blood Count* 4.32 K/uL (4.50-11.00)
[2022-11-01 10:50] LABS: Slide Review Reflex No
[2022-11-01 11:08] LABS: Albumin* 4.2 g/dL (3.3-5.0); Chloride* 104 mmol/L (96-114); Potassium* 3.6 mmol/L (3.6-5.1); Sodium* 143 mmol/L (135-149)
[2022-11-01 11:10] LABS: Creatinine* 0.9 mg/dL (0.5-1.5); Estimated Glomerular Filt Rate 83 ml/min
[2022-11-01 11:11] LABS: Alanine Aminotransferase* 18 U/L (4-35); Alkaline Phosphatase* 59 U/L (40-150); Aspartate Amino Transferase* 22 U/L (12-35); Bilirubin Total* 0.6 mg/dL (0.1-1.5); Blood Urea Nitrogen* 14 mg/dL (5-24); Calcium* 9.5 mg/dL (8.4-10.6); Carbon Dioxide* 29 mmol/L (20-32); Glucose* 98 mg/dL (60-115); Total Protein* 6.7 g/dL (6.0-8.3)
[2022-11-01 12:01] LABS: Thyroid Stimulating Hormone* 0.942 uIU/mL (0.270-4.20)
[2022-11-01] MEDS: diphenhydrAMINE 25 MG in 0.9 % SODIUM CHLORIDE 100 ml 100 ML 402 MG IVPB (12:34)
[2022-11-01] MEDS: PEMBROLIZUMAB 200 MG, TUBING PRIMARY 1 EACH, In-line 0.2 micron filter set 1 EACH in 0.... 216 MG IVPB (13:02)
[2022-11-01] MEDS: HEPARIN 500 UNIT/5 ML SYRINGE IVF (13:40)
[2022-11-01] MEDS: SODIUM CHLORIDE 0.9 % (FLUSH) 10 ML SYRINGE IVF (13:40)
[2022-11-03 02:54] LABS: Cortisol, Serum 5.3 ug/dL
[2022-11-22 09:23] VITALS: BP 101/66; PULSE 93; RESP 16; TEMP 36.2; O2SAT 99
[2022-11-22 09:55] LABS: Hematocrit 39.5 % (33.0-51.0); Lymphocytes Percent Auto 23.4 % (20-44); Mean Corpuscular HGB Conc 33 gm/dL (32-36); Mean Corpuscular Hemoglobin 29 pg (26-34); Mean Corpuscular Volume 88 fL (80-100); Monocytes Percent Auto 7.1 % (0.0-11.0); Neutrophils Percent Auto 65.4 % (42.0-72.0); Platelet Count* 237 K/uL (140-440); RDW Coefficient of Variation % 13.8 % (11.5-15.5); White Blood Count* 5.18 K/uL (4.50-11.00)
[2022-11-22 09:56] LABS: Basophils Absolute Auto 0.02 K/uL (0.00-0.30); Basophils Percent Auto 0.4 % (0.0-3.0); Eosinophils Absolute Auto 0.18 K/uL (0.00-0.50); Eosinophils Percent Auto 3.5 % (0.0-7.0); Immature Granulocytes Abs Auto 0.01 K/uL (0.00-0.30); Immature Granulocytes Pct Auto 0.2 %; Lymphocytes Absolute Auto 1.21 K/uL (0.90-2.90); Neutrophils Absolute Auto 3.39 K/uL (1.7-7.0)
[2022-11-22 10:02] LABS: Slide Review Reflex No
[2022-11-22 10:09] LABS: Chloride* 106 mmol/L (96-114); Potassium* 3.4 mmol/L (3.6-5.1); Sodium* 143 mmol/L (135-149)
[2022-11-22 10:12] LABS: Alanine Aminotransferase* 18 U/L (4-35); Alkaline Phosphatase* 63 U/L (40-150); Aspartate Amino Transferase* 22 U/L (12-35); Bilirubin Total* 0.3 mg/dL (0.1-1.5); Blood Urea Nitrogen* 16 mg/dL (5-24); Carbon Dioxide* 30 mmol/L (20-32); Creatinine* 0.7 mg/dL (0.5-1.5); Estimated Glomerular Filt Rate 113 ml/min; Glucose* 120 mg/dL (60-115); Total Protein* 6.6 g/dL (6.0-8.3)
[2022-11-22 10:13] LABS: Calcium* 9.3 mg/dL (8.4-10.6)
[2022-11-22] MEDS: diphenhydrAMINE 25 MG in 0.9 % SODIUM CHLORIDE 100 ml 100 ML 420 MG IVPB (11:25)
[2022-11-22] MEDS: PEMBROLIZUMAB 200 MG, TUBING PRIMARY 1 EACH, In-line 0.2 micron filter set 1 EACH in 0.... 216 MG IVPB (11:43)
[2022-11-24 05:42] LABS: Cortisol, Serum 17.7 ug/dL
[2022-12-13 10:17] LABS: Basophils Absolute Auto 0.02 K/uL (0.00-0.30); Basophils Percent Auto 0.4 % (0.0-3.0); Eosinophils Absolute Auto 0.16 K/uL (0.00-0.50); Eosinophils Percent Auto 3.1 % (0.0-7.0); Hematocrit 41.5 % (33.0-51.0); Hemoglobin* 13.6 gm/dL (12.0-16.0); Immature Granulocytes Abs Auto 0.04 K/uL (0.00-0.30); Immature Granulocytes Pct Auto 0.8 %; Lymphocytes Absolute Auto 1.39 K/uL (0.90-2.90); Lymphocytes Percent Auto 27.3 % (20-44); Mean Corpuscular HGB Conc 33 gm/dL (32-36); Mean Corpuscular Hemoglobin 29 pg (26-34); Mean Corpuscular Volume 89 fL (80-100); Monocytes Percent Auto 7.5 % (0.0-11.0); Neutrophils Percent Auto 60.9 % (42.0-72.0); Platelet Count* 217 K/uL (140-440); RDW Coefficient of Variation % 14.3 % (11.5-15.5); Red Blood Count 4.64 m/uL (4.00-5.20); White Blood Count* 5.09 K/uL (4.50-11.00)
[2022-12-13 10:24] LABS: Slide Review Reflex No
[2022-12-13 10:32] LABS: Albumin* 4.1 g/dL (3.3-5.0)
[2022-12-13 10:33] LABS: Chloride* 104 mmol/L (96-114); Potassium* 3.3 mmol/L (3.6-5.1); Sodium* 140 mmol/L (135-149)
[2022-12-13 10:35] LABS: Bilirubin Total* 0.6 mg/dL (0.1-1.5); Carbon Dioxide* 29 mmol/L (20-32); Creatinine* 0.6 mg/dL (0.5-1.5); Estimated Glomerular Filt Rate 117 ml/min
[2022-12-13 10:36] LABS: Alanine Aminotransferase* 24 U/L (4-35); Alkaline Phosphatase* 61 U/L (40-150); Aspartate Amino Transferase* 26 U/L (12-35); Blood Urea Nitrogen* 11 mg/dL (5-24); Glucose* 136 mg/dL (60-115); Total Protein* 6.8 g/dL (6.0-8.3)
[2022-12-13] MEDS: diphenhydrAMINE 25 MG in 0.9 % SODIUM CHLORIDE 100 ml 100 ML 402 MG IVPB (13:53)
[2022-12-13] MEDS: PEMBROLIZUMAB 200 MG, TUBING PRIMARY 1 EACH, In-line 0.2 micron filter set 1 EACH in 0.... 216 MG IVPB (14:19)
[2022-12-14 10:24] LABS: Cortisol, Serum 7.3 ug/dL
== END 2022-12-28 23:59 | disposition home or self-care (01) ==
LOC: CCIC 08:30
PROVIDERS: Clinical Nurse Specialist; Nurse Practitioner Family; Physician Assistant; PCP Family Medicine; Referring Provider Family Medicine; Visit Provider Internal Medicine Hematology & Oncology
DX: C50.912 Malignant neoplasm of unspecified site of left female breast (principal); Z17.1 Estrogen receptor negative status [ER-]; Z51.12 Encounter for antineoplastic immunotherapy; E87.6 Hypokalemia; G62.0 Drug-induced polyneuropathy; T45.1X5A Adverse effect of antineoplastic and immunosuppressive drugs, initial encounter; F41.1 Generalized anxiety disorder; Z90.13 Acquired absence of bilateral breasts and nipples
CPT/HCPCS: 36415; 36591; 80053; 82533; 84443; 85025; 96376; 96413; 99211; 99212; 99214; 99215; A9270; J1200; J1642; J1720; J9271

== ENCOUNTER 2023-05-06 10:15 | Outpatient (RCR) | payer MEDICAID, SELFPAY ==
--- NOTE | 2022-06-11 09:31 | PT.OPEX ---
[facility] [place] [facility] Eval PT [facility] Outpatient Eval Start: 06/11/22 07:50 Freq: Status: Active Protocol: Document 06/11/22 07:51 ENM (Rec: 06/11/22 09:24 ENM [id number]) E-signed By Laura Medina, DPT Physical Therapy Outpatient Evaluation Insurance Information Recert Due Date 08/10/22 Insurance Name Medicaid Medical Diagnosis breast cancer bilateral mastectomy with LND reconstruction DOS 06/14 Treating Diagnosis decreased shoulder ROM, shoulder stiffness Referring MD Benson Subjective Subjective Patient presents for pre-op appointment prior to bilateral mastectomy to include LND and reconstruction with expanders DOS 06/14/21. 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 States that her cancer was aggressive and grew quickly in size. She started chemo in November and ended in April. She has been very fatigued since with primary complaints of joint and muscle pain. No plans for radiation at this time. 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 Right shoulder is more limited with motion at baseline. 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 Objective Other/Pertinent Objective AROM standing: Shoulder flexion L 156 R 150 stretch at end range abduction L 169 R 168 Scaption L 162 R 154 IR L T3 R T11 with winging of R scapula while performing ER L T3 and R T4 Posture: protracted shoulders Joint mobility: posterior glide of GH more mobile on the right compared to L inferior glide of GH normal mobility bilaterally Scapular control: good retraction Functional Test Performed & Score Pre-op SPADI: pain 4/50 8% disability 3/80 3.75% total 7/130 Assessment Assessment/Impression Patient presents to PT pre- operatively for planned Breast Cancer surgery to include bilateral mastectomy and planned LND with 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 Assessment today included baseline UE ROM, postural, and joint mobility measurements which are to be compared to measurements retaken 4 weeks post-surgery. At that time, any reduced movement, decline in function, or postural issues will be addressed with skilled care and new goals will be established. Education was given today regarding post-operative signs of infection, axillary cording, seroma formation, and home program to be performed within the first 3-4 weeks post-operatively focusing on UE mobility within surgical restrictions. Plan of Care Rehabilitation Potential Good Physical Therapy Goals After pre-op visit: 1. Pt demonstrates awareness of post-operative movement restrictions and HEP to facilitate lymphatic regeneration and reduce the risk of seroma formation, axillary web syndrome and lymphedema while ensuring shoulder joint mobility. Coordination/Communication With Referral Source Frequency/Duration 6-8 post-op visits 2x/week, then 1x/week as needed during fills. Patient Will Be Discharged From Therapy Completion of LTG(s), Independent w/HEP Evaluation Billing Untimed Code Treatment Minutes 15 Complexity Low Certification Information Initial Certification Date 06/11/22 Ending Certification Date 08/10/22 Provider Signature Shows Agreement With POC & Medical Necessity Physician Signature & Date Requested Please Sign/Date Here Physician Comment/Change : Physician NPI Number #
--- NOTE | 2022-06-11 09:56 | OT.OPLE ---
OT Outpatient Lymphedema Eval OT Outpatient Lymphedema Eval Start: 06/10/22 17:43 Freq: Status: Active Protocol: Document 06/11/22 07:15 AMB (Rec: 06/11/22 09:53 AMB [id number]) E-signed By Sharmila Sanders, OTR/L, CLT, SUPERVISOR [employer] OT Outpatient Evaluation Details Type Type Eval Complexity Low OT OP Lymphedema Evaluation Insurance Information Insurance Information Medicaid Current Condition/Medical Diagnosis Referring Provider Dr Benson Treatment Diagnosis Breast Cancer, Lymphedema risk Date Of Onset 06/14/22 Medical Contraindications CA Other Contraindications Adhesive Allergy Current 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 Pt states she does know a little bit about lymphedema. Pt was seen in PT today for instructions on exs pre and post-op and will follow up with PT for conditioning following surgery . Medical History Medical History Cancer Treatment/Surgery Medical History Comments (Copied from oncology consult) Oncology Hx: 1. Early October 2021, noted left breast lump. Denied any skin changes or nipple discharge. The breast lump was confirmed with mammography . 2. 11/24/2021, underwent left breast biopsy and at 2:00 a.m. , 6 cm from nipple, 1.8 cm spiculated mass was biopsied. This showed invasive ductal carcinoma, [place] 3 of 3, score 8 of 9. ER/HI were negative and HER2 was negative by IHC. 3. 12/01/2021, MRI showing 3.6 cm irregular enhancing mass in the posterior lateral left breast 2:00 a.m.. No other left or right breast lesions were detected. Indeterminate left axillary lymph nodes in the adjacent region were thickened and measured 1.3 x 1 .5 cm. 4. 12/18/2021 initiated neoadjuvant treatment with Q 21 day pembrolizumab and weekly carboplatin/paclitaxel 5. 03/19/2022 first cycle neoadjuvant A/C with pembrolizumab. Fourth cycle A/ C 05/20/2022 6. 05/20/22 4th cycle neaoadjuvant AC with pembrolizumab. Influenza A infection 05/11/22. Medical History (Reviewed @ 09:05 by Rekha Mercado PA-C) Breast cancer, left Dysmenorrhea Generalized anxiety disorder History of abnormal cervical Papanicolaou smear History of self mutilation History of spontaneous History of vaginal delivery ( 2012) Irregular menstrual cycle LFT elevation Major depressive disorder Migraine with aura Nicotine dependence Stress incontinence of urine Weight loss, abnormal Surgical History (Reviewed @ 09:07 by Rekha Mercado PA-C) History of dilation and curettage History of elective History of tubal ligation ( 2012) Surgical History Surgical History See above Medications Medications acetaminophen 325 mg PO Q6H PRN albuterol sulfate 90 mcg/ actuation 2 puffs inhalation Q6H PRN calcium carbonate 500 mg PO Q4 -6H PRN cetirizine 10 mg PO DAILY clindamycin phosphate 1% 1 applic topical BID dexamethasone 4 mg PO BID ibuprofen 200 mg PO .Q6h Prn lidocaine-prilocaine 2.5-2.5 % topical PRN lorazepam 0.5 mg PO Q4H PRN olanzapine 5 mg PO .qhs ondansetron 8 mg PO Q8H PRN prochlorperazine maleate 10 mg PO QID PRN sennosides (senna) 8.6 mg PO DAILY Family History Family History of Lymphedema No Living Situation Current Living Situation Home With Spouse Or SO Exercise History Does Patient Exercise Regularly No Exercise Comments Pt states she doesn't exercise but states, I'm always moving Pain Pain No Loss of Function/Strength/Mobility Loss Of Function/Strength/Mobility No Compression History Does Patient Currently Wear Compression No During Daytime Does Patient Currently Wear Compression No At Night Circumferential Measurements Upper Extremity Left Upper Extremity MCP 19.5 Palm 19.4 Wrist 15.8 10cm 19.5 20cm 24.0 30cm 25.0 40cm 28.0 50cm 33.0 Total 184.2 Right Upper Extremity MCP 20.0 Palm 20.0 Wrist 16.0 10cm 19.5 20cm 24.0 30cm 25.0 40cm 28.0 50cm 32.8 Total 185.3 Assessment Assessment Pt presents pre-operatively for initiation of lymphedema surveillance program. Following her 06/14/22 mastectomy with SLN removal, pt will be at risk for lymphedema in her LUE / upper quadrant due to LN removal. Pt may need radiation which would add to her risk. Pt will benefit from skilled OT intervention for pt education, monitoring / surveillance in order to provide early detection / intervention to assure best positive outcomes with fewer lymphedema related complications if the need arises. Pt does not have lymphedema at this time, so there are no skin changes related to lymphedema. However, pt has multiple scabs throughout BUE lower arms. Pt states it is because her hair is growing back after chemo and she has a nervous habit of picking at it and pulling it out. Discussed implications of open wounds on her at risk area and concerns for infection. Also addressed future tattoos. Pt has multiple tattoos in BUE, recommended pt consider avoiding the addition of any more tattoos in her LUE / at risk areas as this increases risk for infection / lymphedema. Pt demonstrates good interest and motivation to be an active participant in her care. Pt asked multiple pertinent questions and received satisfactory answers. Pt was given contact info and encouraged to reach out if more questions arise. Problem List Problem List Limited Knowledge of Lymphedema Treatment/Condition /Precautions,Limited Knowledge of Skin Care & Infection Precautions,Significant Risk For Infection For Lymphedema Related Complications,Does Not Have a HEP Patient Goals Patient Goals 1. Pt will demonstrate a general understanding of the lymphatic system, s/s of lymphedema, treatment of lymphedema, implications of untreated lymphedema, s/s of infection and the correlation of infection related to lymphedema. 3 months 2. Pt will be compliant with quarterly assessments for lymphedema surveillance in order to obtain early intervention with best outcomes if needed. 12 months Treatment Plan Treatment Plan Evaluation,Edema Control,Joint Mobilization,Manual Therapy, Wound Care/Scar Management, Therapeutic Exercise, Therapeutic Activities,Self- Care/Home Management,Caregiver Training Expected Frequency 1x q 3m Expected Duration 12 months Certification Certification I Certify That: Therapy Services Provided, Therapy Plan Established, Therapy Plan Reviewed Recertification Information Recertification Information Initial Certification Date 06/11/22 Recertification Due Date 09/09/22 Reasons to Continue Skilled Therapy Initiating lymphedema surveillance program today please see above Rehabilitation Potential Good Continued Plan of Care and Interventions See above Provider Signature Shows Agreement With POC & Medical Necessity Physician Comment/Change Comment or Changes Physician NPI Number #
--- NOTE | 2022-07-14 13:03 | PT.OPDNX ---
PT [place] Outpatient Daily Note PT [facility] Outpatient Daily Note Start: 06/11/22 07:50 Freq: Status: Active Protocol: Document 07/14/22 08:27 SHRUTHI (Rec: 07/14/22 08:32 SEW [id number]) E-signed By Janice Trevino DPT PT OP Daily Progress Note Visit Information Note Type Daily Note,Re-Evaluation Visit Number 2 Insurance Information Recert Due Date 08/10/22 Insurance Name Medicaid Medical Diagnosis L breast cancer w/ bilateral mastectomy with LND reconstruction DOS 06/14 Treating Diagnosis decreased shoulder ROM, shoulder stiffness, UE weakness, deconditioning/ fatigue, axillary web syndrome L UE Referring MD Benson Subjective Subjective Pt returns for post-op re- evaluation regarding B mastectomy w/ reconstruction tissue plan examiner placement on by Dr. Benson and Dr. Pino. All restrictions are lifted at this time per Dr. Pino's post-op visit yesterday. Pt had drains for 2 weeks on both sides until they were removed. During surgery 4 lymph nodes were removed, all negative. Pt will not have radiation but she has 8 treatments left of immunotherapy, which is every 3 weeks via infusion through her port. She feels pretty tired after these infusions. Reports she noted cording in L arm/axilla about 1 week post- op. Been trying to massage and stretch it, which it has improved. Both shoulders feel tight however. Will potentially have her implant surgery Mid July. She has had one fill already and will likely only need one more. Has mole/ lizzy on L breast skin that will eventually be removed, so they expanded this side a little more. Not noting any swelling. Has been doing HEP and following restrictions. 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 Hoping to return with a gradual increase in hours however. Sees Dr. Pino again 07/28/22. Pt notes she has sensitive skin (for massage lotion - use Albolene/ fragrance free). Pain Comments L axilla, chest wall and shoulder d/t cording Home Exercise Home Exercise Comments Access Code: [email or web address] *supine cording stretches 3 ways - HO given Exercises Supine Shoulder Flexion AAROM - 3 x daily - 7 x weekly - 10 reps - 5 seconds hold Supine Chest Stretch with Elbows Bent - 3 x daily - 7 x weekly - 10 reps - 5 seconds hold Standing Shoulder Flexion Full Range - 3 x daily - 7 x weekly - 10 reps - 5 seconds hold Chicken Wing - 3 x daily - 7 x weekly - 10 reps - 5 seconds hold Shoulder blade squeeze - 3 x daily - 7 x weekly - 10 reps - 5 seconds hold Objective Other/Pertinent Objective AROM standing: Pre-op Shoulder flexion L 156 R 150 stretch at end range abduction L 169 R 168 Scaption L 162 R 154 IR L T3 R T11 with winging of R scapula while performing ER L T3 and R T4 Post-op re-eval: Shd ROM: flexion: L 120 deg, R 148 deg abduction: L 119 deg, R 90 deg scaption: L 130 deg, R 110 deg IR HBB: L to T12; R to T7 ER HBH: L to T3; R to base of neck Soft tissue: Scar mobility: fair to good, good healing with no open areas, minor scabbing still present R breast Observation: Functional Test Performed & Score Post-op SPADI: pain 17/50; 34% disability 16/80; 20% total 23/130; 17.7% Pre-op SPADI: pain 4/50 8% disability 3/80 3.75% total 7/130 Patient Instructed in Risks/Benefits Yes Therapeutic Exercise Therapeutic Exercise Minutes (minutes) 15 Therapeutic Exercise: To Restore To restore UE ROM and improve Functional Status cording: - instructed in axillary cording stretches supine into flexion, hand behind head ER, and abduction/scaption - HO provided - Instructed in HEP via Designer Material: - supine AAROM shd flexion hands clasped - supine chest ER stretch ( hands behind head) - standing chicken wings into full position - standing AROM shoulder flexion B - scap retraction for posture Manual Therapy Techniques Manual Therapy Minutes (minutes) 20 Manual Therapy Techniques To improve soft tissue mobility, reduce pain, and treat axillary cording to reduce ROM restrictions: - supine for STM and fascial massage light to moderate pressure to B pec majors ( avoiding port on R side), rib cage laterally, at sternum, around expanders, gently to scars - Axillary cording massage and stretching techniques (C- strokes and anchoring w/ manual tissue stretching) with arm at 90 deg abd, and hand slightly behind head eventually as tolerated Treatment Minutes Untimed Code Treatment Minutes 15 Timed Code Treatment Minutes 35 Total Treatment Time 50 Billing Units Manual Therapy Units 1 Therapeutic Exercise Units 1 Re-Evaluation Units 1 Assessment/Impression Assessment/Impression Patient returns to PT for her 4 week post-operative evaluation following B mastectomy w/ reconstruction to compare baseline pre- operative measurements to her current condition, in addition to assessing for post- operative impairments that will benefit from continuation of skilled care. She currently presents with decreased UE ROM L>R, UE weakness L>R, impaired posture , axillary cording on L side, and soft tissue tightness and restrictions that will benefit from skilled care, including therapeutic exercise, manual therapy, neuromuscular education, self-care training and HEP training, in order to return her to her prior level of function and comfort. Plan of Care Physical Therapy Goals Within 12 weeks: 1. Restore shoulder AROM, as measured at pre-operative evaluation, after initial recovery period to improve 1 and 2-handed functional activity ability. (This will reduce during radiation therapy inflammatory phase, if needed.) 2. Restore functional scoring using SPADI assessment tool to pre-operative amounts to ensure full return to baseline function. 3. Restore full upright posture per patient perception or compared to pre-operative findings. 4. 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 Daily Plan of Care Continue per POC Daily Plan of Care Comments cont working on cords; progress AROM (re-check); add strengthening 6-8 weeks post- op Recertification Information Provider Signature Shows Agreement With POC & Medical Necessity
--- NOTE | 2022-10-08 11:40 | OT.OPLDN ---
OT Outpatient Lymphedema Daily Note OT Outpatient Lymphedema Daily Note Start: 06/10/22 17:43 Freq: Status: Active Protocol: Document 10/08/22 09:04 AMB (Rec: 10/08/22 11:04 AMB [id number]) E-signed By Sharmila Sanders, OTR/L, CLT, CORN CUTTER OPERATOR OT OP Lymphedema Daily/Progress Note Note Type Note Type Daily,Recert/Progress Note Insurance Authorized Visits 3 Insurance Information Insurance Information Medicaid Current Condition/Medical Diagnosis Referring Provider Dr Benson Treatment Diagnosis Breast Cancer, Lymphedema risk Date Of Onset 06/14/22 Medical Contraindications CA Other Contraindications Adhesive Allergy Subjective Subjective Pt returns for lymphedema surveillance following her mastectomy with LN biopsy x 4 on the LUE, all negative. Pt returns for lymphedema surveillance following her mastectomy with LN biopsy x 4 on the RUE, all negative. Initiated Anastrozole in March. Pt feels she is doing well, no concerns about lymphedema. 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 Pt is currently doing immunotherapy infusions and will have her final one on January 03. Pt has not yet had her exchange surgery as her surgeon moved away, she is in the process of interviewing other surgeons and is hoping to proceed with surgery soon. 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 Home Program Compliant To Home Program Yes Home Program Specifics Self monitoring. Also working with PT for exercises and MT. Circumferential Measurements Upper Extremity Left Upper Extremity MCP 19.5 Palm 19.4 Wrist 15.7 10cm 19.0 20cm 23.4 30cm 24.6 40cm 26.5 50cm 31.0 Total 179.1 Right Upper Extremity MCP 20.0 Palm 20.0 Wrist 16.0 10cm 18.9 20cm 23.3 30cm 23.8 40cm 26.4 50cm 30.9 Total 179.3 Treatment Self Care Provided review of patient education regarding the lymphatic system, s/s of lymphedema, treatment options for lymphedema, implications of untreated lymphedema, infection and it's correlation to lymphedema as well as implications of untreated infection. Discussed risk reduction practices including skin care and monitoring strategies. Discussed the importance of regular exercise and healthy habits. 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 Pt is still smoking, this has been addressed at previous sessions, wanting to quit but might be too hard with all the other things that are going on in her life right now. Self Care Activity Minutes (minutes) 15 Therapeutic Activity Minutes (minutes) 5 Other Interventions Re-assessment of skin and limb circumference. Assessment Pt presents 16 weeks and 4 days post-operatively for lymphedema surveillance program. Following her 06/14/22 mastectomy with SLN removal x 4 on the left, pt is now at risk for lymphedema in her LUE / upper quadrant. Pt will benefit from continued skilled OT intervention for pt education, monitoring / surveillance in order to provide early detection / intervention to assure best positive outcomes with fewer lymphedema related complications if the need arises. Pt does not have any s /s of lymphedema at this time. BUE total measurements have actually reduced significantly , pt states she has lost an additional 10# or more due to the stress of her situation and just keeping busy at work and home. Pt's skin is in good condition as well. States she's been working on not picking. Problem List Limited Knowledge of Lymphedema Treatment/Condition /Precautions,Limited Knowledge of Skin Care & Infection Precautions,Significant Risk For Infection For Lymphedema Related Complications,Does Not Have a HEP Patient Goals Patient Goals 1. Pt will demonstrate a general understanding of the lymphatic system, s/s of lymphedema, treatment of lymphedema, implications of untreated lymphedema, s/s of infection and the correlation of infection related to lymphedema. 3 months 2. Pt will be compliant with quarterly assessments for lymphedema surveillance in order to obtain early intervention with best outcomes if needed. 12 months Treatment Plan Treatment Plan Evaluation,Edema Control,Joint Mobilization,Manual Therapy, Wound Care/Scar Management, Therapeutic Exercise, Therapeutic Activities,Self- Care/Home Management,Caregiver Training Expected Frequency 1x q 3m Expected Frequency Comments Re-asses in 3 months unless concerns arise. Expected Duration 12 months Treatment Minutes Timed Treatment Minutes 20 Total Timed Treatment Minutes 20 Occupational Therapy Billing Units Billing Units Self Care/Home Management 1 Certification Certification I Certify That: Therapy Services Provided, Therapy Plan Established, Therapy Plan Reviewed Recertification Information Recertification Information Initial Certification Date 06/11/22 Recertification Start Date 09/09/22 Recertification Due Date 12/09/22 Reasons to Continue Skilled Therapy Continuation of 12 month lymphedema surveillance program with focus on pt education, risk reduction practices, self and clinic monitoring in order to reduce risk for lymphedema as well as provision of early detection with best outcomes should pt develop lymphedema. Rehabilitation Potential Good Continued Plan of Care and Interventions See above Provider Signature Shows Agreement With POC & Medical Necessity Physician Comment/Change Comment or Changes Physician NPI Number #
--- NOTE | 2023-01-28 11:29 | OT.OPLDN ---
OT Outpatient Lymphedema Daily Note OT Outpatient Lymphedema Daily Note Start: 06/10/22 17:43 Freq: Status: Active Protocol: Document 01/28/23 10:11 AMB (Rec: 01/28/23 11:29 AMB [id number]) E-signed By Sharmila Sanders, OTR/L, CLT, AUTOMOTIVE UPHOLSTERER OT OP Lymphedema Daily/Progress Note Note Type Note Type Daily,Recert/Progress Note Insurance Authorized Visits 4 Insurance Information Insurance Information Medicaid Current Condition/Medical Diagnosis Referring Provider Dr Benson Treatment Diagnosis Breast Cancer, Lymphedema risk Date Of Onset 06/14/22 Medical Contraindications CA Other Contraindications Adhesive Allergy Subjective Subjective Pt feels she is doing well, finished her Keytruda 3 weeks ago, will consult with oncology on 02/07/23 to find out if her port can be removed , exchange surgery has not yet been re-scheduled as pt states she is still trying to decide on a surgeon since hers has moved out of state. Pt states she's been staying active, working 18-25hrs per week, has also been helping a friend clear some land and plant gardens. Pt states her son's will be returning to school next week, one is a senior and one is a 4th grader . Pt still struggles with her weight, state she's eating a lot but also going to the bathroom a lot, feels this is due to the Keytruda. Home Program Compliant To Home Program Yes Home Program Specifics Self monitoring. Also working with PT for exercises and MT. Circumferential Measurements Upper Extremity Left Upper Extremity MCP 19.5 Palm 19.2 Wrist 15.7 10cm 19.2 20cm 23.4 30cm 24.3 40cm 25.2 50cm 27.5 Total 174.0 Right Upper Extremity MCP 20.2 Palm 19.8 Wrist 16.0 10cm 18.5 20cm 22.8 30cm 24.3 40cm 25.2 50cm 27.1 Total 173.9 Treatment Self Care Provided review of patient education regarding the lymphatic system, s/s of lymphedema, treatment options for lymphedema, implications of untreated lymphedema, infection and it's correlation to lymphedema as well as implications of untreated infection. Discussed risk reduction practices including skin care and monitoring strategies. Discussed the importance of regular rest and a good diet with adequate protein intake, pt states she really tries hard to get her protein in. Discussed her circumferential reductions and likely continued weight loss, pt is aware and continues to work on this. Self Care Activity Minutes (minutes) 20 Therapeutic Activity Minutes (minutes) 5 Other Interventions Re-assessment of skin and limb circumference. Assessment Pt's circumferential measurements are again down. The RUE has reduced by 5.4cm and the LUE is down by 5.1cm. Arms are relatively symmetrical and there is no evidence of lymphedema. Pt is aware of her struggles with her weight, states she will continue to work on this. Pt will benefit from continued skilled OT intervention for pt education, monitoring / surveillance in order to provide early detection / intervention to assure best positive outcomes with fewer lymphedema related complications if the need arises. Pt does not have any s /s of lymphedema at this time. BUE total measurements have actually reduced significantly again, explained by additional weight loss. Pt states her weight this morning was 114#. Pt will likely finish her lymphedema surveillance program at her next visit in April. Problem List Limited Knowledge of Lymphedema Treatment/Condition /Precautions,Limited Knowledge of Skin Care & Infection Precautions,Significant Risk For Infection For Lymphedema Related Complications,Does Not Have a HEP Patient Goals Patient Goals 1. Pt will demonstrate a general understanding of the lymphatic system, s/s of lymphedema, treatment of lymphedema, implications of untreated lymphedema, s/s of infection and the correlation of infection related to lymphedema. 3 months 2. Pt will be compliant with quarterly assessments for lymphedema surveillance in order to obtain early intervention with best outcomes if needed. 12 months Treatment Plan Treatment Plan Evaluation,Edema Control,Joint Mobilization,Manual Therapy, Wound Care/Scar Management, Therapeutic Exercise, Therapeutic Activities,Self- Care/Home Management,Caregiver Training Expected Frequency 1x q 3m Expected Frequency Comments Re-asses in 3 months unless concerns arise. Expected Duration 12 months Treatment Minutes Timed Treatment Minutes 25 Total Timed Treatment Minutes 25 Occupational Therapy Billing Units Billing Units Self Care/Home Management 1 Recertification Information Recertification Information Initial Certification Date 06/11/22 Recertification Start Date 12/09/22 Recertification Due Date 03/11/23 Reasons to Continue Skilled Therapy Continuation of 12 month lymphedema surveillance program with focus on pt education, risk reduction practices, self and clinic monitoring in order to reduce risk for lymphedema as well as provision of early detection with best outcomes should pt develop lymphedema. Rehabilitation Potential Good Continued Plan of Care and Interventions See above Provider Signature Shows Agreement With POC & Medical Necessity Physician Comment/Change Comment or Changes Physician NPI Number #
--- NOTE | 2023-05-06 11:46 | OT.OPLDN ---
OT Outpatient Lymphedema Daily Note OT Outpatient Lymphedema Daily Note Start: 06/10/22 17:43 Freq: Status: Active Protocol: Document 05/06/23 10:25 AMB (Rec: 05/06/23 11:45 AMB [id number]) E-signed By Sharmila Sanders, OTR/L, CLT, SHREDDING MACHINE OPERATOR OT OP Lymphedema Daily/Progress Note Note Type Note Type Daily,Recert/Progress Note Insurance Authorized Visits 5 Insurance Information Insurance Information Medicaid Current Condition/Medical Diagnosis Referring Provider Dr Benson Treatment Diagnosis Breast Cancer, Lymphedema risk Date Of Onset 06/14/22 Medical Contraindications CA Other Contraindications Adhesive Allergy Subjective Subjective Pt doing well, happy that her hair is growing back. Last chemo was in December, port removed in February and will have consult for her exchange surgery on 05/16/23. Pt has not noticed any concerns for lymphedema, no abnormal swelling, tingling, or weakness in her left upper quadrant. Home Program Compliant To Home Program Yes Home Program Specifics Self monitoring. Also working with PT for exercises and MT. Circumferential Measurements Upper Extremity Left Upper Extremity MCP 19.5 Palm 19.2 Wrist 15.9 10cm 18.2 20cm 23.0 30cm 23.8 40cm 25.2 50cm 28.0 Total 172.8 Right Upper Extremity MCP 20.0 Palm 19.5 Wrist 15.9 10cm 18.2 20cm 22.8 30cm 23.7 40cm 25.2 50cm 28.0 Total 173.3 Treatment Self Care Provided review of patient education regarding the lymphatic system, s/s of lymphedema, treatment options for lymphedema, implications of untreated lymphedema, infection and it's correlation to lymphedema as well as implications of untreated infection. Discussed risk reduction practices including skin care and monitoring strategies. Pt is planning on getting a rather large tattoo on her LUE in the near future, discussed this and how this could be a risk factor for lymphedema, recommended pt consider different location for this tattoo. Really emphasized good skin care as pt had several opened areas on her left hand / UE. 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 Self Care Activity Minutes (minutes) 30 Therapeutic Activity Minutes (minutes) 5 Other Interventions Re-assessment of skin and limb circumference. Assessment Circumferential measurements are not concerning for lymphedema, pt denies any other s/s of lymphedema. Pt's skin is relatively dry with multiple abrasions / scabs, reviewed risk factors, pt verbalizes understanding of skin care, however, does still plan on getting a tattoo on her LUE. Goals have been met. Pt verbalizes basic understanding of the lymphatics as well as risk factors and risk reduction practices. Pt has completed her lymphedema surveillance program. 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 Problem List Limited Knowledge of Lymphedema Treatment/Condition /Precautions,Limited Knowledge of Skin Care & Infection Precautions,Significant Risk For Infection For Lymphedema Related Complications,Does Not Have a HEP Patient Goals Patient Goals 1. Pt will demonstrate a general understanding of the lymphatic system, s/s of lymphedema, treatment of lymphedema, implications of untreated lymphedema, s/s of infection and the correlation of infection related to lymphedema. 3 months 2. Pt will be compliant with quarterly assessments for lymphedema surveillance in order to obtain early intervention with best outcomes if needed. 12 months Treatment Plan Treatment Plan Evaluation,Edema Control,Joint Mobilization,Manual Therapy, Wound Care/Scar Management, Therapeutic Exercise, Therapeutic Activities,Self- Care/Home Management,Caregiver Training Expected Frequency 1x q 3m Expected Frequency Comments Re-asses in 3 months unless concerns arise. Expected Duration 12 months Treatment Minutes Timed Treatment Minutes 35 Total Timed Treatment Minutes 35 Occupational Therapy Billing Units Billing Units Self Care/Home Management 2 Certification Certification I Certify That: Therapy Services Provided, Therapy Plan Established, Therapy Plan Reviewed Recertification Information Recertification Information Initial Certification Date 06/11/22 Recertification Start Date 03/11/23 Recertification Due Date 05/08/23 Reasons to Continue Skilled Therapy Pt completed her last day of her lymphedema surveillance program following breast cancer surgery/treatment. This was her last scheduled visit. Pt will now transition to self monitoring / reporting, feels comfortable with this. Rehabilitation Potential Good Provider Signature Shows Agreement With POC & Medical Necessity Physician Comment/Change Comment or Changes Physician NPI Number # Discharge Note Discharge Note Discharge Summary Pt has been seen for a total of 5 visits from 06/11/22-. Pt has met all goals as stated in her IE and feels comfortable transitioning to an independent monitoring program. Recommendations/Reason for Discharge Met All Therapy Goals Discharge Instructions Continue with self-monitoring, skin care, activity / non sedentary, no tight-fitting clothing/jewelry, no needle sticks or tourniquets / BP cuffs, and reporting concerns if they arise.
== END 2023-05-06 12:29 | disposition home or self-care (01) ==
PROVIDERS: PCP Family Medicine; Visit Provider Surgery
DX: I89.0 Lymphedema, not elsewhere classified (principal); Z74.09 Other reduced mobility; M25.619 Stiffness of unspecified shoulder, not elsewhere classified; R53.1 Weakness; R53.83 Other fatigue; Z98.890 Other specified postprocedural states; Z51.89 Encounter for other specified aftercare
CPT/HCPCS: 97110; 97140; 97161; 97164; 97165; 97535

== ENCOUNTER 2023-05-09 10:30 | Outpatient (RCR) | payer MEDICAID, SELFPAY ==
[2022-12-31 08:29] LABS: Basophils Absolute Auto 0.02 K/uL (0.00-0.30); Basophils Percent Auto 0.4 % (0.0-3.0); Eosinophils Absolute Auto 0.16 K/uL (0.00-0.50); Hematocrit 40.9 % (33.0-51.0); Hemoglobin* 13.6 gm/dL (12.0-16.0); Immature Granulocytes Abs Auto 0.01 K/uL (0.00-0.30); Immature Granulocytes Pct Auto 0.2 %; Lymphocytes Absolute Auto 1.45 K/uL (0.90-2.90); Lymphocytes Percent Auto 26.8 % (20-44); Mean Corpuscular HGB Conc 33 gm/dL (32-36); Mean Corpuscular Hemoglobin 30 pg (26-34); Mean Corpuscular Volume 89 fL (80-100); Monocytes Percent Auto 7.9 % (0.0-11.0); Neutrophils Absolute Auto 3.34 K/uL (1.7-7.0); Neutrophils Percent Auto 61.7 % (42.0-72.0); Platelet Count* 230 K/uL (140-440); RDW Coefficient of Variation % 13.3 % (11.5-15.5); White Blood Count* 5.41 K/uL (4.50-11.00)
[2022-12-31 08:45] LABS: Chloride* 105 mmol/L (96-114)
[2022-12-31 08:46] LABS: Albumin* 4.5 g/dL (3.3-5.0); Potassium* 3.5 mmol/L (3.6-5.1); Sodium* 139 mmol/L (135-149)
[2022-12-31 08:48] LABS: Carbon Dioxide* 28 mmol/L (20-32); Creatinine* 0.7 mg/dL (0.5-1.5); Estimated Glomerular Filt Rate 113 ml/min; Slide Review Reflex No
[2022-12-31 08:49] LABS: Alanine Aminotransferase* 18 U/L (4-35); Alkaline Phosphatase* 73 U/L (40-150); Aspartate Amino Transferase* 23 U/L (12-35); Bilirubin Total* 0.8 mg/dL (0.1-1.5); Blood Urea Nitrogen* 21 mg/dL (5-24); Calcium* 9.4 mg/dL (8.4-10.6); Glucose* 79 mg/dL (60-115); Total Protein* 7.2 g/dL (6.0-8.3)
[2023-01-01 21:42] LABS: Cortisol, Serum 12.3 ug/dL
--- NOTE | 2023-01-05 14:01 | URNOTE ---
Received request for prior authorization for Pembrolizumab ([id number]). This has been approved 200mg x 1 dose from 12/16/22 to 01/11/23.
[2023-01-07 09:00] VITALS: BP 110/73; PULSE 98; RESP 14; TEMP 36.8; O2SAT 98
[2023-01-07] MEDS: diphenhydrAMINE 25 MG in 0.9 % SODIUM CHLORIDE 100 ml 100 ML 402 MG IVPB (09:32)
[2023-01-07] MEDS: PEMBROLIZUMAB 200 MG, TUBING PRIMARY 1 EACH, In-line 0.2 micron filter set 1 EACH in 0.... 216 MG IVPB (09:56)
== END 2023-06-29 23:59 | disposition home or self-care (01) ==
LOC: CCIC 10:30
PROVIDERS: Clinical Nurse Specialist; PCP Family Medicine; Referring Provider Family Medicine; Visit Provider Internal Medicine Hematology & Oncology
DX: C50.912 Malignant neoplasm of unspecified site of left female breast (principal); Z17.1 Estrogen receptor negative status [ER-]; E87.6 Hypokalemia; G62.0 Drug-induced polyneuropathy; T45.1X5A Adverse effect of antineoplastic and immunosuppressive drugs, initial encounter; F41.1 Generalized anxiety disorder
CPT/HCPCS: 36415; 36591; 80053; 82533; 84443; 85025; 96376; 96413; 99212; 99214; J1200; J9271

== ENCOUNTER 2023-05-25 11:39 | Outpatient (CLI) | payer MEDICAID, SELFPAY | END 2023-05-25 11:40 | disposition home or self-care (01) | PROVIDERS: PCP Family Medicine; Referring Provider Family Medicine; Visit Provider Family Medicine | DX: R31.9 Hematuria, unspecified (principal) | CPT/HCPCS: 87086 ==

== ENCOUNTER 2023-07-04 11:02 | Outpatient (CLI) | payer MEDICAID, SELFPAY ==
--- OUTSIDE RECORDS SUMMARY | 2023-07-04 11:14 | XMS_ITS | Clinical Summary ---
Author Name Unknown Organization [facility] Address [address] 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 Last update 11/01/08.[facility] Allergies Active Allergy Reactions Criticality Noted Date Comments Adhesive Tape Other (see comments) 05/25/2023 Pt states adhesive tape takes off the outer layer of her skin Medications * Be aware that medications may not be up to date as of this document. Always verify current medications with patient. Medication Sig Dispensed Refills Start Date End Date Status ibuprofen (MOTRIN;ADVIL) 600 mg oral tablet Take 1 tablet (600 mg) by mouth 3 times daily as needed for Pain. 30 tablet 0 05/25/2023 Active acetaminophen 325 mg oral tablet Take 2 tablets (650 mg) by mouth every 4 hours as needed for Moderate Pain. 30 tablet 0 05/25/2023 Active Encounters Date Type Department Care Team Description 05/25/2023 4:11 PM KENO DEALER - 05/25/2023 8:20 PM KENO DEALER Emergency [facility] Emergency Department [address] [facility] [id number] [place] [address] Lasha Kessler MD Multiple contusions Discharge Disposition: Discharged to home or self care (routine discharge) 05/25/2023 Travel from Last 3 Months Social History Tobacco Use Types Packs/Day Years Used Date Smoking Tobacco: Unknown Tobacco Cessation:Counseling Given: Not Answered Sex and Gender Information Value Date Recorded Sex Assigned at Not on file Gender Identity Not on file Sexual Orientation Not on file Last Filed Vital Signs Vital Sign Reading Time Taken Comments Blood Pressure 118/83 05/25/2023 6:44 PM KENO DEALER Pulse 78 05/25/2023 6:44 PM KENO DEALER Temperature 36.5 ??C (97.7 ??F) 05/25/2023 4:13 PM CS T Respiratory Rate 17 05/25/2023 6:44 PM KENO DEALER Oxygen Saturation 100% 05/25/2023 6:44 PM KENO DEALER Inhaled Oxygen Concentration - - Weight - - Height - - Body Mass Index - - Plan of Treatment Health Maintenance Due Date Last Done Comments Dental Oral Exam 1983 Dental Prophylaxis 1983 Dental X-Ray: Bitewings 1983 COVID-19 Vaccine (#1) 02/22/1984 Periodontal Maintenance 08/21/1997 HIV Screening 08/21/1998 PREVENTATIVE VISIT 08/21/2001 HEALTH MAINTENANCE PROTOCOL 08/21/2002 INFLUENZA VACCINE 12/28/2022 TD/TDAP ADULTS 02/19/2023 02/19/2013, 05/01, 09/03/1988 Cervical Cancer Screening Age 30-65 08/13/2027 08/12/2022 Hepatitis B Vaccines Completed 09/13/2001, 04/19/2001, 03/15/2001, Additional history exists HIB Aged Out No longer eligi ble based on patient's age to complete this topic Pneumococcal Vaccine: Pediatrics (0 to 5 Years) and At-Risk Patients (6 to 64 Years) Aged Out No longer eligible based on patient's age to complete this topic RSV Immunoglobulin Aged Out No longer eligible based on patient's age to complete this topic Procedures Procedure Name Priority Date/Time Associated Diagnosis Comments CT HEAD NO IV CONTRAST Routine 5:[address] SPINE LUMBAR NO IV CON Routine 05/25/2023 5:[address] SPINE THORACIC NO IV CON Routine 05/25/2023 5:[address] SPINE CERVICAL NO IV CON Routine 05/25/2023 5:[address] CHEST/ABD/PELVIS W/IV CONT Routine 05/25/2023 5:39 PM KENO DEALER PRECAUTIONARY TUBE STAT 05/25/2023 5: 02 PM KENO DEALER PC ELECTROLYTES PANEL STAT 05/25/2023 5:02 PM KENO DEALER PC LAB CBC W/DIFF & PLT STAT 05/25/2023 5:02 PM KENO DEALER PC LACTATE (LACTIC ACID) STAT 05/25/2023 5:02 PM KENO DEALER from Last 3 Months Results * CT SPINE THORACIC NO IV CON (05/25/2023 5:39 PM KENO DEALER) Anatomical Region Laterality Modality Thoracic Spine Computed Tomogra phy 05/25/2023 5:57 PM KENO DEALER Impressions 05/25/2023 6:22 PM KENO DEALER Impression: No evidence of fracture or dislocation in the thoracic or lumbar spine. I have personally reviewed the image(s) and initial interpretation, and I agree with the findings as documented by the resident/fellow. Reading Radiologist: Jewels Kebede Reading Resident: Gerald Ovalles 05/25/2023 6:22 PM KENO DEALER Thoracic and Lumbar Spine CT Reconstructions Indication: ??trauma eval ??. Comparison: ??None Technique: Images of the thoracic and lumbar spine with axial, sagittal and coronal reconstructions were obtained from a CT examination of ??the chest and abdomen. Images were reviewed in a bone window. This is not additional radiation; these images are reconstructed from the chest/abdomen/pelvis CT Findings: Please refer to the chest/abdomen CT report for the findings on those examinations. Thoracic spine: There is no fracture or dislocation of the thoracic vertebrae. Alignment of the thoracic vertebra appears within normal limits. Mild multilevel endplate osteophytic spurring. Ligamentum flavum calcifications most pronounced at T4-5 and T5-6. ??The spinal canal and the neural foramina bilaterally are grossly patent at all visualized levels. ??The visualized prevertebral and paravertebral soft tissues are unremarkable. Lumbar spine: There is no fracture or dislocation of the lumbar vertebrae. Alignment of the lumbar vertebrae appears within normal limits. There is no significant disc height narrowing at any level. ??Mild multilevel degenerative changes. The visualized prevertebral and paravertebral soft tissues are unremarkable. Procedure Note Jewels Kebede MD - 05/25/[address] Reconstructions Indication: trauma eval . Comparison: None Technique: Images of the thoracic and lumbar spine with axial, sagittaland coronal reconstructions were obtained from a CT examination of thechest and abdomen. Images were reviewed in a bone window. This is notadditional radiation; these images are reconstructed from thechest/abdomen/pelvis CT Findings: Please refer to the chest/abdomen CT report for the findings on thoseexaminations. Thoracic spine: There is no fracture or dislocation of the thoracicvertebrae. Alignment of the thoracic vertebra appears within normallimits. Mild multilevel endplate osteophytic spurring. Ligamentum flavumcalcifications most pronounced at T4-5 and T5-6. The spinal canal and theneural foramina bilaterally are grossly patent at all visualized levels.The visualized prevertebral and paravertebral soft tissues areunremarkable. Lumbar spine: There is no fracture or dislocation of the lumbar vertebrae.Alignment of the lumbar vertebrae appears within normal limits. There isno significant disc height narrowing at any level. Mild multileveldegenerative changes. The visualized prevertebral and paravertebral softtissues are unremarkable. IMPRESSION Impression: No evidence of fracture or dislocation in the thoracic or lumbar spine. I have personally reviewed the image(s) and initial interpretation, and Iagree with the findings as documented by the resident/fellow. Reading Radiologist: Jewels Kebede Resident: Gerald Ovalles Kwame Shaffer PA-C RAD CT NEURO * CT SPINE LUMBAR NO IV CON (05/25/2023 5:39 PM KENO DEALER) Anatomical Region Laterality Modality Lumbar Spine Computed Tomogra phy 05/25/2023 5:57 PM KENO DEALER Impressions 05/25/2023 6:22 PM KENO DEALER Impression: No evidence of fracture or dislocation in the thoracic or lumbar spine. I have personally reviewed the image(s) and initial interpretation, and I agree with the findings as documented by the resident/fellow. Reading Radiologist: Jewels Kebede Resident: Gerald Ovalles Narrative 05/25/2023 6:22 PM KENO DEALER Thoracic and Lumbar Spine CT Reconstructions Indication: ??trauma eval ??. Comparison: ??None Technique: Images of the thoracic and lumbar spine with axial, sagittal and coronal reconstructions were obtained from a CT examination of ??the chest and abdomen. Images were reviewed in a bone window. This is not additional radiation; these images are reconstructed from the chest/abdomen/pelvis CT Findings: Please refer to the chest/abdomen CT report for the findings on those examinations. Thoracic spine: There is no fracture or dislocation of the thoracic vertebrae. Alignment of the thoracic vertebra appears within normal limits. Mild multilevel endplate osteophytic spurring. Ligamentum flavum calcifications most pronounced at T4-5 and T5-6. ??The spinal canal and the neural foramina bilaterally are grossly patent at all visualized levels. ??The visualized prevertebral and paravertebral soft tissues are unremarkable. Lumbar spine: There is no fracture or dislocation of the lumbar vertebrae. Alignment of the lumbar vertebrae appears within normal limits. There is no significant disc height narrowing at any level. ??Mild multilevel degenerative changes. The visualized prevertebral and paravertebral soft tissues are unremarkable. Procedure Note Jewels Kebede MD - 05/25/[address] Reconstructions Indication: trauma eval . Comparison: None Technique: Images of the thoracic and lumbar spine with axial, sagittaland coronal reconstructions were obtained from a CT examination of thechest and abdomen. Images were reviewed in a bone window. This is notadditional radiation; these images are reconstructed from thechest/abdomen/pelvis CT Findings: Please refer to the chest/abdomen CT report for the findings on thoseexaminations. Thoracic spine: There is no fracture or dislocation of the thoracicvertebrae. Alignment of the thoracic vertebra appears within normallimits. Mild multilevel endplate osteophytic spurring. Ligamentum flavumcalcifications most pronounced at T4-5 and T5-6. The spinal canal and theneural foramina bilaterally are grossly patent at all visualized levels.The visualized prevertebral and paravertebral soft tissues areunremarkable. Lumbar spine: There is no fracture or dislocation of the lumbar vertebrae.Alignment of the lumbar vertebrae appears within normal limits. There isno significant disc height narrowing at any level. Mild multileveldegenerative changes. The visualized prevertebral and paravertebral softtissues are unremarkable. IMPRESSION Impression: No evidence of fracture or dislocation in the thoracic or lumbar spine. I have personally reviewed the image(s) and initial interpretation, and Iagree with the findings as documented by the resident/fellow. Reading Radiologist: Jewels Kebede Resident: Gerald Ovalles Kwame Shaffer PA-C RAD CT NEURO * CT SPINE CERVICAL NO IV CON (05/25/2023 5:39 PM KENO DEALER) Anatomical Region Laterality Modality Cervical Spine Computed Tomogra phy 05/25/2023 5:40 PM KENO DEALER Impressions 05/25/2023 6:01 PM KENO DEALER Impression: ?? 1. No acute fracture or subluxation of the cervical vertebrae. 2. No significant spinal canal or neural foraminal stenosis. I have personally reviewed the image(s) and initial interpretation, and I agree with the findings as documented by the resident/fellow. Reading Radiologist: Jewels Kebede Resident: Gerald Ovalles Narrative 05/25/2023 6:01 PM KENO DEALER Exam: Cervical spine CT without contrast, Indication: trauma eval ??. Comparison: ??None. Technique: Using multidetector thin collimation helical acquisition technique, axial, coronal and sagittal reconstructed CT images were obtained through the cervical spine without intravenous contrast. Images were reviewed in bone and soft tissue windows. Dose: Total DLP = 165 mGy.cm. ?? Findings: There is no evidence of acute fracture or significant prevertebral soft tissue swelling. The lateral masses of C1 appear normally aligned on C2. The normal cervical lordotic curvature is preserved. Alignment of the cervical spine appears intact. There is no significant disc space narrowing at any level. ?? No significant spinal canal or neural foraminal narrowing at any level. Visualized paraspinous tissues are unremarkable. Procedure Note Jewels Kebede MD - 05/25/2023 Exam: Cervical spine CT without contrast, Indication: trauma eval . Comparison: None. Technique: Using multidetector thin collimation helical acquisitiontechnique, axial, coronal and sagittal reconstructed CT images wereobtained through the cervical spine without intravenous contrast. Imageswere reviewed in bone and soft tissue windows. Dose: Total DLP = 165 mGy.cm. Findings: There is no evidence of acute fracture or significantprevertebral soft tissue swelling. The lateral masses of C1 appearnormally aligned on C2. The normal cervical lordotic curvature ispreserved. Alignment of the cervical spine appears intact. There is nosignificant disc space narrowing at any level. No significant spinal canal or neural foraminal narrowing at any level. Visualized paraspinous tissues are unremarkable. IMPRESSION Impression: 1. No acute fracture or subluxation of the cervical vertebrae. 2. No significant spinal canal or neural foraminal stenosis. I have personally reviewed the image(s) and initial interpretation, and Iagree with the findings as documented by the resident/fellow. Reading Radiologist: Jewels Kebede Resident: Gerald Ovalles Kwame Shaffer PA-C RAD CT NEURO * CT HEAD NO IV CONTRAST (05/25/2023 5:39 PM KENO DEALER) Anatomical Region Laterality Modality Skull Computed Tomogra phy 05/25/2023 5:35 PM KENO DEALER Impressions 05/25/2023 6:00 PM KENO DEALER Impression: No acute intracranial pathology Pranav Traumatic Brain Injury Scale: Diffuse Injury 1 PRANAV DIAGNOSTIC CATEGORIES OF ABNORMALITIES VISUALIZED ON CT SCANNING FOR TRAUMATIC BRAIN INJURY: Diffuse Injury 1: No visible intracranial pathology seen on CT scan. Diffuse Injury 2: Cisterns are present with shift 0-5 mm and/or lesion densities present. No high or mixed density lesion >25ml. May include bone fragments and foreign bodies. Diffuse Injury 3 (swelling): Cisterns compressed or absent with shift 0-5mm. No high or mixed density lesion > 25ml. ? Diffuse Injury 4 (shift): Shift > 5mm. No high or mixed density lesion > 25ml. Evacuated mass lesion: Any surgically evacuated lesion. ?? Non evacuated mass lesion: High or mixed-density lesion > 25ml. Not surgically evacuated. I have personally reviewed the image(s) and initial interpretation, and I agree with the findings as documented by the resident/fellow. Reading Radiologist: Jewels Kebede Resident: Gerald Ovalles Narrative 05/25/2023 6:00 PM KENO DEALER Indication: Head trauma, moderate-severe ??. Comparison: none. Technique: Axial thin section CT images through the brain were obtained from the base of the skull through the vertex without intravenous contrast and reviewed in brain, bone and subdural windows. Dose: Total DLP = 1247.9 mGy.cm. Findings: No evidence of intracranial hemorrhage, mass effect, midline shift or abnormal extraaxial fluid collection. ??The ventricles do not appear enlarged out of proportion to the cerebral sulci. Morales-white differentiation is intact throughout both cerebral hemispheres. The bony calvarium and the bones of the skull base appear intact. Review of visualized dentition does not reveal significant periapical dental disease. The visualized portions of the paranasal sinuses and the mastoid air cells are clear. Procedure Note Jewels Kebede MD - 05/25/2023 Indication: Head trauma, moderate-severe . Comparison: none. Technique: Axial thin section CT images through the brain were obtainedfrom the base of the skull through the vertex without intravenous contrastand reviewed in brain, bone and subdural windows. Dose: Total DLP = 1247.9 mGy.cm. Findings: No evidence of intracranial hemorrhage, mass effect, midlineshift or abnormal extraaxial fluid collection. The ventricles do notappear enlarged out of proportion to the cerebral sulci. Morales-whitedifferentiation is intact throughout both cerebral hemispheres. The bony calvarium and the bones of the skull base appear intact. Reviewof visualized dentition does not reveal significant periapical dentaldisease. The visualized portions of the paranasal sinuses and the mastoidair cells are clear. IMPRESSION Impression: No acute intracranial pathology Pranav Traumatic Brain Injury Scale: Diffuse Injury 1 PRANAV DIAGNOSTIC CATEGORIES OF ABNORMALITIES VISUALIZED ON CT SCANNINGFOR TRAUMATIC BRAIN INJURY: Diffuse Injury 1: No visible intracranial pathology seen on CT scan. Diffuse Injury 2: Cisterns are present with shift 0-5 mm and/or lesiondensities present. No high or mixed density lesion >25ml. May include bonefragments and foreign bodies. Diffuse Injury 3 (swelling): Cisterns compressed or absent with shift0-5mm. No high or mixed density lesion > 25ml. Diffuse Injury 4 (shift): Shift > 5mm. No high or mixed density lesion >25ml. Evacuated mass lesion: Any surgically evacuated lesion. Non evacuated mass lesion: High or mixed-density lesion > 25ml. Notsurgically evacuated. I have personally reviewed the image(s) and initial interpretation, and Iagree with the findings as documented by the resident/fellow. Reading Radiologist: Jewels Kebede Resident: Gerald Ovalles Lasha Kessler MD RAD CT NEURO * CT CHEST/ABD/PELVIS W/IV CONT (05/25/2023 5:39 PM KENO DEALER) Anatomical Region Laterality Modality Chest Computed Tomogra phy 05/25/2023 5:48 PM KENO DEALER Impressions 05/25/2023 6:02 PM KENO DEALER Impression: No acute traumatic injury identified in the chest, abdomen, or pelvis. I have personally reviewed the image(s) and initial interpretation, and I agree with the findings as documented by the resident/fellow. Reading Radiologist: Je Gilbert Resident: Gerald Ovalles Narrative 05/25/2023 6:02 PM KENO DEALER Comparison: None. Indication: trauma eval ?? Technique: Volumetric helical acquisition of CT images from the lung apices through the symphysis pubis after the administration of contrast. DOSE: ?Total DLP = 433 mGy.cm. ?? Findings: Chest: ?? Lungs:No lung nodule or mass. No focal infiltrate. Airway: Patent Pleura: No pleural effusion or pneumothorax. Mediastinal structures: Heart size is within normal limits. Aorta and pulmonary artery are normal caliber. Lymph nodes: No enlarged thoracic lymph nodes Skeletal structures: Chronic appearing left 12th posterior rib fracture. Abdomen/Pelvis: ?? Abdominal viscera: Liver: Within normal limits Gallbladder and biliary tree: No calcified gallstones. No intra- or extrahepatic biliary ductal dilation. Pancreas: Within normal limits. Spleen: Within normal limits Adrenals: Within normal limits. Kidneys, ureters and bladder: Within normal limits. Reproductive organs: No pelvic masses. Bilateral adnexal cysts measuring up to 2.7 cm on the left and 2.0 cm on the right. Bowel and peritoneum: Normal caliber small bowel and large bowel. No ascites or free air. No other fluid collection. Lymph nodes: No enlarged lymph nodes Vessels: Aorta and major branches are patent without aneurysm or significant stenosis. Portal vein and superior mesenteric vein are patent. Skeletal structures/soft tissues: Mild degenerative changes. ??Bilateral breast implants. Cortical regularities of bilateral ribs felt to be due to motion rather than acute fractures. Procedure Note Je Gilbert MD - 05/25/2023 Comparison: None. Indication: trauma eval Technique: Volumetric helical acquisition of CT images from the lungapices through the symphysis pubis after the administration of contrast. DOSE: Total DLP = 433 mGy.cm. Findings: Chest: Lungs:No lung nodule or mass. No focal infiltrate. Airway: Patent Pleura: No pleural effusion or pneumothorax. Mediastinal structures: Heart size is within normal limits. Aorta andpulmonary artery are normal caliber. Lymph nodes: No enlarged thoracic lymph nodes Skeletal structures: Chronic appearing left 12th posterior rib fracture. Abdomen/Pelvis: Abdominal viscera: Liver: Within normal limits Gallbladder and biliary tree: No calcified gallstones. No intra- orextrahepatic biliary ductal dilation. Pancreas: Within normal limits. Spleen: Within normal limits Adrenals: Within normal limits. Kidneys, ureters and bladder: Within normal limits. Reproductive organs: No pelvic masses. Bilateral adnexal cysts measuringup to 2.7 cm on the left and 2.0 cm on the right. Bowel and peritoneum: Normal caliber small bowel and large bowel. Noascites or free air. No other fluid collection. Lymph nodes: No enlarged lymph nodes Vessels: Aorta and major branches are patent without aneurysm orsignificant stenosis. Portal vein and superior mesenteric vein arepatent. Skeletal structures/soft tissues: Mild degenerative changes. Bilateralbreast implants. Cortical regularities of bilateral ribs felt to be due tomotion rather than acute fractures. IMPRESSION Impression: No acute traumatic injury identified in the chest, abdomen, or pelvis. I have personally reviewed the image(s) and initial interpretation, and Iagree with the findings as documented by the resident/fellow. Reading Radiologist: Je Gilbert Reading Resident: Gerald Ovalles Kwame Shaffer PA-C RAD CT BODY * (ABNORMAL) ED CHEMISTRY LABS(NA,K,CL,CO2,GLU,CREAT,CA-IONIZED,ANION GAP) (05/25/2023 5:02 PM KENO DEALER) Sodium 140 135 - 148 mEq/L [facility] Chloride 108 92 - 108 mEq/L [facility] AnGap 6(L) 8 - 16 mEq/L [facility] Glucose 81 70 - 100 mg/dL [facility] ICA, Actual 4.55 4.40 - 5.20 mg/dL [facility] ICA, pH Corrected 4.47 4.40 - 5.20 mg/dL [facility] Creatinine 0.78 0.50 - 1.00 mg/dL [facility] BICARB 26 22 - 26 mEq/L [facility] eGFR (2020 CKD-EPI) 99 >=60 ml/min/1.7 3m2 [facility] Comment: The estimated glomerular filtration rate (eGFR) was calculated using the CKD-EPI 2020 creatinine equation, which does not include race as a factor. This equation is validated in individuals 18 years of age and older, and eGFR is normalized to a body surface area of 1.73m^2. Potassium 3.2(L) 3.5 - 5.3 mEq/L [facility] Blood 05/25/2023 5:02 PM KENO DEALER 05/25/2023 5:12 PM KENO DEALER Kwame Shaffer PA-C LABORATORY [facility] [address] [address] * CBC WITH PLTS/AUTO DIFF (05/25/2023 5:02 PM KENO DEALER) WBC 8.43 4.00 - 10.00 k/cmm [facility] RBC 4.32 3.90 - 5.20 m/cmm [facility] Hgb 13.2 11.5 - 15.7 g/dL [facility] Hematocrit 39.8 34.0 - 45.0 % [facility] MCV 92.1 80.0 - 100.0 fL [facility] MCH 30.6 25.0 - 32.0 pg [facility] MCHC 33.2 31.0 - 36.0 g/dL [facility] RDW 13.2 11.5 - 14.5 % [facility] Plt 232 150 - 400 k/cmm [facility] MPV 9.0 6.5 - 12.5 fL [facility] Automated Abs Neutrophil 6.31 1.70 - 6.50 k/cmm [facility] Comment:Preliminary ANC, Fin al Result to Follow Abs Immature Granulocyte 0.03 0.00 - 0.09 k/cmm [facility] Comment:The Immature Granulo cyte Absolute count contains metamyelocytes and myelocytes. Abs Neutrophil 6.31 1.70 - 6.50 k/cmm [facility] Abs Lymphocyte 1.34 0.80 - 4.00 k/cmm [facility] Abs Monocyte 0.52 0.20 - 1.00 k/cmm [facility] Abs Eosinophil 0.20 0.00 - 0.60 k/cmm [facility] Abs Basophil 0.03 0.00 - 0.20 k/cmm [facility] Blood 05/25/2023 5:02 PM KENO DEALER 05/25/2023 5:29 PM KENO DEALER Kwame PEREZC LABORATORY Performing Organization Address City/[facility]/ZIP Co de Phone Number [facility] [address] [address] [address] * PRECAUTIONARY TUBE (05/25/2023 5:02 PM KENO DEALER) Prec Tube Precautionary Blood Bank Specimen Received. [facility] Blood 05/25/2023 5:02 PM KENO DEALER 05/25/2023 5:14 PM KENO DEALER Kwame [facility] LAB TRANSFUSION SERVICES Performing Organization Address City/[facility] Co de Phone Number [address] [address] * LACTATE (LACTIC ACID) (05/25/2023 5:02 PM KENO DEALER) Lactate 1.1 0.7 - 2.1 mmol/L [facility] Blood 05/25/2023 5:02 PM KENO DEALER 05/25/2023 5:15 PM KENO DEALER Narrative [facility] - 05/25/2023 5:15 PM KENO DEALER Send specimen on ice! Kwame [facility]ORAT[facility] Performing Organization Address City/[facility]/ZIP Co de Phone Number [address] [address] from Last 3 Months
--- OUTSIDE RECORDS SUMMARY | 2023-07-04 11:14 | XMS_ITS | Clinical Summary ---
Author Name Unknown Organization [facility] Address [place], [place] [address] Care Team Providers Care Lead Quality Control Technician Name Role Phone Hardy Vital MD Primary Care Provider + Allergies No known active allergies Medications Medication Sig Dispensed Refills Start Date End Date Status PARoxetine (PAXIL) 20 mg tablet 30 mg. 3 09/09/2017 Active cetirizine (ZYRTEC) 10 mg tablet Take 1 tablet by mouth once daily. 0 11/03/2017 Active ondansetron (ZOFRAN) 4 mg tabletIndications:Viral gastroenteritis Take 1 tablet by mouth every 8 hours if needed for Nausea/Vomitin g. 12 tablet 0 11/03/2017 Active Immunizations Name Administration Dates Next Due Hepatitis B (Peds) 09/13/2001,04/19/2001, 001 Td (Age >=7 Years) 05/29/1996 Social History Tobacco Use Types Packs/Day Years Used Date Smoking Tobacco: Former Smokeless Tobacco: Never Alcohol Use Standard Drinks/Week Comments No 0 (1 standard drink = 0.6 oz pur e alcohol) Alcoholic Drinks/day: 0 PHQ-2 Answer Date Recorded PHQ-2 Score 0 07/30/2018 Sex and Gender Information Value Date Recorded Sex Assigned at Not on file Gender Identity Not on file Sexual Orientation Not on file Obstetrics History Last Filed Vital Signs Vital Sign Reading Time Taken Comments Blood Pressure 133/83 11/03/2017 3:06 PM CDT Pulse 77 11/03/2017 3:06 PM CDT Temperature 36.8 ??C (98.2 ??F) 11/03/2017 3:06 PM CD T Respiratory Rate - - Oxygen Saturation 97% 11/03/2017 3:06 PM CDT Inhaled Oxygen Concentration - - Weight 75.9 kg (167 lb 6.4 oz) 11/03/2017 3:06 P M CDT Height 160.8 cm (5' 3.31) 11/03/2017 3:06 PM CD T Body Mass Index 29.37 11/03/2017 3:06 PM CDT Plan of Treatment Health Maintenance Due Date Last Done Comments COVID-19 vaccine series (#1) 02/22/1984 Tdap 08/21/1994 HIV for age 15-65 08/21/1998 Hepatitis C screening for age 18-79 08/21/2001 Tetanus booster 05/29/2006 05/29/1996 BMI (ht and wt on same day) for age 18+ 11/03/2018 11/03/2017 Depression screening for age 12+ 11/03/2018 11/03/2017 Influenza for age 9-49 01/28/2023 Pap test for age 21-65 08/12/2025 3, 08/12/2022, 02/09/2017, Additional history exists Pneumococcal series for age 6-64 Aged Out No longer eligible based on patient's age to complete this topic Care Teams Lead Quality Control Technician Relationship Specialty Start Date End Date Hardy Vital MD [address] [place] [address] PCP - General Family Practice 01/06/22
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
--- OUTSIDE RECORDS SUMMARY | 2023-07-04 11:14 | XMS_ITS | Encounter Summary ---
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
== END 2023-07-04 11:03 | disposition home or self-care (01) ==
PROVIDERS: PCP Family Medicine; Visit Provider Family Medicine
DX: Z01.818 Encounter for other preprocedural examination (principal); Z13.228 Encounter for screening for other metabolic disorders; Z13.0 Encounter for screening for diseases of the blood and blood-forming organs and certain disorders involving the immune mechanism
CPT/HCPCS: 80048; 85025

== ENCOUNTER 2023-08-16 18:40 | Outpatient (CLI) | payer MEDICAID, SELFPAY | END 2023-08-16 18:41 | disposition home or self-care (01) | PROVIDERS: PCP Family Medicine; Referring Provider Family Medicine; Visit Provider Physician Assistant | DX: Z13.220 Encounter for screening for lipoid disorders (principal) | CPT/HCPCS: 80061 ==

== ENCOUNTER 2023-10-10 10:20 | Outpatient (CLI) | payer MEDICAID, SELFPAY | END 2023-10-10 10:21 | disposition home or self-care (01) | PROVIDERS: PCP Family Medicine; Visit Provider Physician Assistant | DX: N92.0 Excessive and frequent menstruation with regular cycle (principal) | CPT/HCPCS: 83001; 84443 ==

== ENCOUNTER 2023-11-14 09:15 | Outpatient (RCR) | payer MEDICAID, SELFPAY | END 2024-02-11 23:59 | disposition home or self-care (01) | LOC: CCIC 09:15 | PROVIDERS: PCP Family Medicine; Referring Provider Family Medicine; Visit Provider Physician Assistant | DX: C50.912 Malignant neoplasm of unspecified site of left female breast (principal); Z17.1 Estrogen receptor negative status [ER-] | CPT/HCPCS: 99214; G0463 ==